=== PATIENT | male | born 1945 | race Caucasian/White ===

== ENCOUNTER → 2016-07-13 | Outpatient (CLI) | payer MEDICARE | LOC: RAD 13:28 | PROVIDERS: ATTEND Internal Medicine Hematology & Oncology | DX: R07.9 Chest pain, unspecified (principal) | CPT/HCPCS: 71250 ==

== ENCOUNTER 2016-07-19 13:00 | Outpatient (CLI) | payer MEDICARE ==
[~2016-07-19 13:00] MED LIST: FERUMOXYTOL (NON-ESRD) 510 MG/NS 100 ML IV PRN; NORMAL SALINE 250 ML IV PRN
[2016-07-19 13:05] VITALS: BP 149/68
== END 2016-07-19 13:44 | disposition home or self-care (01) ==
LOC: II 13:00 → 5TH 13:02 → II 13:44
PROVIDERS: ATTEND Internal Medicine
PROC: 3E033GC Introduction of Other Therapeutic Substance into Peripheral Vein, Percutaneous Approach (ICD-10-PCS; principal; 2016-07-19)
DX: N18.3 Chronic kidney disease, stage 3 (moderate) (principal); D63.1 Anemia in chronic kidney disease
CPT/HCPCS: 96365; Q0138

== ENCOUNTER 2016-07-26 12:31 | Outpatient (CLI) | payer MEDICARE ==
[2016-07-26 13:26] VITALS: BP 110/48
== END 2016-07-26 13:27 | disposition home or self-care (01) ==
LOC: II 12:31 → 5TH 12:31 → II 13:27
PROVIDERS: ATTEND Internal Medicine
PROC: 3E033GC Introduction of Other Therapeutic Substance into Peripheral Vein, Percutaneous Approach (ICD-10-PCS; principal; 2016-07-26)
DX: N18.3 Chronic kidney disease, stage 3 (moderate) (principal); D63.1 Anemia in chronic kidney disease
CPT/HCPCS: 96365; Q0138

== ENCOUNTER → 2016-09-20 | Outpatient (CLI) | payer MEDICARE ==
--- NOTE | 2016-09-20 16:38 | RADIOLOGY REPORT (SQ) ---
EXAM DESCRIPTION: MRI CERVICAL SPINE WITHOUT COMPLETED DATE/TIME: 09/20/2016 2:13 pm REASON FOR STUDY: C SPINE PAIN M54.12 RADICULOPATHY, CERVICAL REGION COMPARISON: MRI from [facility] dated 02/23/2015. TECHNIQUE: Sagittal and Axial imaging includes T1, T2, STIR and gradient echo sequences. LIMITATIONS: None. FINDINGS: ALIGNMENT: Straightening of the cervical curvature. VERTEBRAE: Intact. Fusion of the C5, C 6, and C7 vertebrae. BONE MARROW: Normal. No marrow replacement or reactive changes. DISCS: Decreased height and signal. Disc fusion at C5-C6 and C6-C7. HARDWARE: Anterior hardware from C4-C7. CORD AND BASE OF BRAIN: Normal in size and signal intensity. SOFT TISSUES: No soft tissue masses. C1-C2: No significant spinal stenosis. C2-C3: Uncovertebral spurring and facet arthropathy. Moderate severe bilateral foraminal stenosis. C3-C4: Diffuse posterior disc and osteophyte and uncovertebral spurring. Facet arthropathy. Moderat e to severe spinal stenosis and severe exit foraminal stenosis. C4-C5: Diffuse posterior disc and osteophyte and uncovertebral spurring. Facet arthropathy. Moderat e to severe spinal stenosis and severe exit foraminal stenosis. C5-C6: No significant spinal stenosis or exit foraminal stenosis. C6-C7: No significant spinal stenosis or exit foraminal stenosis. C7-T1: Uncovertebral spurring and facet arthropathy. No significant spinal stenosis. Moderate exit foraminal stenosis. UPPER THORACIC: Incompletely imaged. No significant spinal stenosis or exit foraminal stenosis. OTHER: No other significant finding. IMPRESSION: SURGICAL CHANGES AND DEGENERATIVE CHANGES DESCRIBED ABOVE. SIMILAR TO THE PREVIOUS Joce QURESHI. TECHNICAL DOCUMENTATION: JOB ID: [id number]- All Rights Reserved
== END ==
LOC: RAD 12:20
PROVIDERS: ATTEND Physician Assistant
DX: M54.12 Radiculopathy, cervical region (principal)
CPT/HCPCS: 72141

== ENCOUNTER 2017-04-14 09:59 | Outpatient (CLI) | payer MEDICARE ==
[~2017-04-14 09:59] MED LIST changes: +FERRIC CARBOXYMALTOSE 750 MG in NORMAL SALINE 250 ML IV PRN; -FERUMOXYTOL (NON-ESRD) 510 MG/NS 100 ML IV PRN
== END 2017-04-14 11:29 | disposition home or self-care (01) ==
LOC: II 09:59 → 5TH 10:02 → II 11:29
PROVIDERS: ATTEND Internal Medicine
PROC: 3E033GC Introduction of Other Therapeutic Substance into Peripheral Vein, Percutaneous Approach (ICD-10-PCS; principal; 2017-04-14)
DX: D50.0 Iron deficiency anemia secondary to blood loss (chronic) (principal); N18.3 Chronic kidney disease, stage 3 (moderate)
CPT/HCPCS: 96365; J7050; J1439; 96374

== ENCOUNTER 2017-04-21 12:30 | Outpatient (CLI) | payer MEDICARE | END 2017-04-21 14:05 | disposition home or self-care (01) | LOC: II 12:30 → 5TH 12:36 → II 14:05 | PROVIDERS: ATTEND Internal Medicine | PROC: 3E033GC Introduction of Other Therapeutic Substance into Peripheral Vein, Percutaneous Approach (ICD-10-PCS; principal; 2017-04-21) | DX: D50.0 Iron deficiency anemia secondary to blood loss (chronic) (principal); N18.3 Chronic kidney disease, stage 3 (moderate) | CPT/HCPCS: 96365; J7050; J1439 ==

== ENCOUNTER 2017-10-12 12:16 | Outpatient (CLI) | payer MEDICARE ==
[~2017-10-12 12:16] MED LIST changes: -FERRIC CARBOXYMALTOSE 750 MG in NORMAL SALINE 250 ML IV PRN; +FERUMOXYTOL (NON-ESRD) 510 MG/NS 100 ML IV PRN
[2017-10-12 13:14] VITALS: BP 106/50
== END 2017-10-12 13:27 | disposition home or self-care (01) ==
LOC: II 12:16 → 5TH 12:36 → II 13:27
PROVIDERS: ATTEND Internal Medicine
PROC: 3E033GC Introduction of Other Therapeutic Substance into Peripheral Vein, Percutaneous Approach (ICD-10-PCS; principal; 2017-10-12)
DX: N18.3 Chronic kidney disease, stage 3 (moderate) (principal); D63.1 Anemia in chronic kidney disease
CPT/HCPCS: 96365; Q0138

== ENCOUNTER 2017-10-19 12:17 | Outpatient (CLI) | payer MEDICARE ==
[~2017-10-19 12:17] MED LIST changes: -FERUMOXYTOL (NON-ESRD) 510 MG/NS 100 ML IV PRN; +FERUMOXYTOL 510 MG in NORMAL SALINE 100 ML IV PRN
[2017-10-19 12:51] VITALS: BP 100/50
== END 2017-10-19 13:05 | disposition home or self-care (01) ==
LOC: II 12:17 → 5TH 12:38 → II 13:05
PROVIDERS: ATTEND Internal Medicine
PROC: 3E033GC Introduction of Other Therapeutic Substance into Peripheral Vein, Percutaneous Approach (ICD-10-PCS; principal; 2017-10-19)
DX: N18.3 Chronic kidney disease, stage 3 (moderate) (principal); D63.1 Anemia in chronic kidney disease
CPT/HCPCS: 96365; Q0138

== ENCOUNTER 2018-03-21 13:05 | Outpatient (CLI) | payer MEDICARE, OTHER ==
[2018-03-21] MEDS ORDERED: NORMAL SALINE 250 ML IV PRN (13:32)
[2018-03-21] MEDS ORDERED: FERUMOXYTOL (NON-ESRD) 510 MG/NS 100 ML IV PRN ×2 (13:33)
[2018-03-21 13:50] VITALS: BP 115/48
== END 2018-03-21 14:49 | disposition home or self-care (01) ==
LOC: II 13:05 → 5TH 13:15 → II 14:49
PROVIDERS: ATTEND Internal Medicine
PROC: 3E033GC Introduction of Other Therapeutic Substance into Peripheral Vein, Percutaneous Approach (ICD-10-PCS; principal; 2018-03-21)
DX: D50.0 Iron deficiency anemia secondary to blood loss (chronic) (principal)
CPT/HCPCS: 96367; Q0138; 96365

== ENCOUNTER 2018-03-28 12:32 | Outpatient (CLI) | payer MEDICARE, OTHER ==
[~2018-03-28 12:32] MED LIST changes: +FERUMOXYTOL (NON-ESRD) 510 MG/NS 100 ML IV PRN; -FERUMOXYTOL 510 MG in NORMAL SALINE 100 ML IV PRN
[2018-03-28 13:20] VITALS: BP 99/45
== END 2018-03-28 14:04 | disposition home or self-care (01) ==
LOC: II 12:32 → 5TH 12:32 → II 14:04
PROVIDERS: ATTEND Internal Medicine
PROC: 3E033GC Introduction of Other Therapeutic Substance into Peripheral Vein, Percutaneous Approach (ICD-10-PCS; principal; 2018-03-28)
DX: D50.0 Iron deficiency anemia secondary to blood loss (chronic) (principal); N18.3 Chronic kidney disease, stage 3 (moderate)
CPT/HCPCS: 96367; Q0138; 96365

== ENCOUNTER 2018-09-04 07:16 | Day surgery (SDC) | payer MEDICARE, OTHER ==
[~2018-09-04 07:16] MED LIST changes: -FERUMOXYTOL (NON-ESRD) 510 MG/NS 100 ML IV PRN; +KETOROLAC TROMETHAMINE 0.45% 4 DROP/0.4 ML DROPERETTE OS PRN; -NORMAL SALINE 250 ML IV PRN
[2018-09-04] MEDS ORDERED: ONDANSETRON HCL INJ/PF 4 MG/2 ML SDV ONE (07:20)
[2018-09-04] MEDS ORDERED: MIDAZOLAM 2 MG/2 ML INJ ONE (07:20)
[2018-09-04] MEDS ORDERED: FENTANYL CITRATE INJ/PF 100 MCG/2 ML AMPUL ONE (07:20)
[2018-09-04] MEDS ORDERED: LIDOCAINE 1% INJ-PF (10 MG/ML) 30 ML SDV ONE (07:41)
[2018-09-04] MEDS: BESIFLOXACIN HCL 0.6% OPH SUSP 5 ML BOTTLE OS PRN ×4 (08:10→09:08)
[2018-09-04] MEDS: TROPICAMIDE 1% OPH SOLN 3 ML OS PRN ×3 (08:10→08:30)
[2018-09-04] MEDS: CYCLOPENTOLATE 0.2%/PHENYLEPHRINE 1% OPH SOLN 2 ML OS PRN ×3 (08:10→08:30)
[2018-09-04] MEDS: TETRACAINE HCL 0.5% OPH SOLN 0.6 ML DROPERETTE OS PRN ×4 (08:11→08:39)
[2018-09-04] MEDS: LIDOCAINE 4% INJ/PF (40 MG/ML) 5 ML AMPUL OS PRN ×2 (08:41)
[2018-09-04] MEDS: BUPIVACAINE HCL 0.75% INJ/PF (7.5 MG/1 ML) 10 ML SDV OS PRN ×2 (08:41)
[2018-09-04] MEDS: EPINEPHRINE INJ/PF 1 MG/1 ML AMPULE ONE ×2 (08:53)
[2018-09-04] MEDS: CHONDR SU A NA/HYALUR INTRAOC KIT (SURGICARE) ONE ×2 (08:53)
[2018-09-04] MEDS ORDERED: LIDOCAINE 1%/PHENYLEPHRINE 1.5% 1 ML VIAL ONE (08:57)
[2018-09-04] MEDS: DORZOLAMIDE HCL 2%/TIMOLOL MALEAT 0.5% OPH SOLN 10 ML OS PRN ×2 (09:08)
--- NOTE | 2018-09-04 09:50 | [facility] DISCHARGE SUMMARY E ---
[facility] Discharge Summary NAME: HAYLEE JERNIGAN AGE: 73Y ADMITTED: 09/04/2018 DISCHARGED: 09/04/2018 FINAL DIAGNOSIS: CATARACT, LEFT EYE HOSPITAL COURSE: The patient is a 73-year-old gentleman who underwent uneventful cataract extraction with intraocular lens implant, left eye on 09/04/18. He will be discharged to home. He is instructed to resume preoperative medications, take Tylenol as needed for discomfort, to keep his eye shielded, to use Besivance, Durezol and Ilevro at 3 p.m. and 8 p.m., and to follow up in my office in 1 day. DICTATING PHYSICIAN: AKILAH CAMERON M.D. [id number] Y#: [id number] ID: [id number] JOB#: [id number] ACCT: [id number] cc:AKILAH CAMERON M.D. >
--- NOTE | 2018-09-04 09:50 | [facility] OPERATIVE REPORT E ---
[facility] Operative Report NAME: HAYLEE JERNIGAN AGE: 73Y DATE OF SURGERY: 09/04/2018 ROOM: PREOPERATIVE DIAGNOSIS: CATARACT, LEFT EYE. POSTOPERATIVE DIAGNOSIS: CATARACT, LEFT EYE. PROCEDURE PERFORMED: PHACOEMULSIFICATION WITH POSTERIOR CHAMBER INTRAOCULAR LENS, LEFT EYE. SURGEON: AKILAH CAMERON MD ANESTHESIA: TOPICAL WITH MAC PLUS INTRAOCULAR PHENYLEPHRINE AND LIDOCAINE. PROCEDURE: The patient was brought to the Operating Room and placed on the operative table. Following tetracaine drops, topical anesthesia was administered. This consisted of instrument wipe pledgets soaked in a solution of 4% Xylocaine mixed with 0.75% Marcaine in a 1:2 ratio. A 2 x 1 cm pledget was placed in the superior fornix. A 1 x 1 cm pledget was placed in the inferior fornix. The eye was patched shut for 5 minutes. The patch was removed. The eye was sterilely prepped and draped in the usual manner. Lid speculum was placed in the eye. The pledgets were removed. 4-0 black silk sutures were placed around the superior and the inferior rectus muscles to be used as traction. A conjunctival peritomy was made at the 2 o'clock position. Hemostasis was obtained with bipolar cautery. A posterior limbal groove was created using a crescent knife and dissected anteriorly towards the cornea. A sharp point blade was used to create a paracentesis site at the 5 o'clock position. A 2.4 mm keratome was used to enter the anterior chamber through the groove. Viscoelastic was injected into the anterior chamber. An anterior capsulotomy was performed using Utrata forceps in a capsulorrhexis fashion. Hydrodissection and hydrodelineation were performed. Phacoemulsification was performed in abgrgs-zmc-[id number] technique. A total of 4.96 CDE phaco time was used. Following this, the I/A unit was used to remove residual cortex. Viscoelastic was injected into the capsular bag. Intraocular lens model [id number], 22.5 diopters, serial number [id number] was placed in the capsular bag. The I/A unit was used to remove residual viscoelastic. The wound was seen to be watertight under high and low pressure, and no sutures were placed. The intraocular lens was well centered. The pressure was adjusted in the eye to normal pressure. The 4-0 black silk sutures and lid speculum were removed. The eye was shielded after Besivance drops were placed. The patient tolerated the procedure well and was sent to the Recovery Room in good condition. A drop of Cosopt was placed in the eye at the end of surgery. DICTATING PHYSICIAN: AKILAH CAMERON M.D. DICTATING PHYSICIAN: AKILAH CAMERON M.D. [id number] PHY#: [id number] ID: [id number] JOB#: [id number] ACCT: [id number] cc:AKILAH CAMERON M.D. >
== END 2018-09-04 09:50 | disposition home or self-care (01) ==
LOC: SC 07:16
PROVIDERS: ATTEND Ophthalmology
DX: H25.12 Age-related nuclear cataract, left eye (principal); Z96.1 Presence of intraocular lens; I10 Essential (primary) hypertension; E11.9 Type 2 diabetes mellitus without complications; D64.9 Anemia, unspecified; I49.9 Cardiac arrhythmia, unspecified
CPT/HCPCS: 66984; V2632; J2250; J3490 ×4; A9270; J0171; J2405; J2370; J3010

== ENCOUNTER → 2018-09-12 | Outpatient (CLI) | payer MEDICARE, OTHER ==
--- NOTE | 2018-09-12 15:59 | XCELERA REPORT ---
[address] [place] [facility] [place] [address] Lower Extremity Venous Evaluation Procedure: Color flow and duplex imaging of the veins of the right lower extremity as well as the left Common Femoral vein. Right Sided Venous Evaluation Normal vessel filling wall to wall, compression and augmentation as well as Colour flow down to the infrageniculate veins. Left Sided Venous Evaluation The left common femoral vein is fully compressible. Spontaneous and phasic flow is present in the left common femoral vein. Interpretation Summary No duplex evidence of DVT or obstruction in the right lower extremity nor in the left Common Femoral vein. Name: HAYLEE JERNIGAN Age: 73 yrs Gender: Male : 1945 Patient Status: Outpatient Patient Location: Study Date: 09/12/2018 02:10 PM Reason For Study: RLE EDEMA Ordering Physician: DAMON RAMÍREZ Performed By: Jorge Cadet : DAMON RAMÍREZ > Matthew Lewis
== END ==
LOC: SP 13:14
PROVIDERS: ATTEND Registered Nurse
DX: R60.9 Edema, unspecified (principal)
CPT/HCPCS: 93971

== ENCOUNTER 2018-11-14 12:16 | Outpatient (CLI) | payer MEDICARE, OTHER ==
[2018-11-14] MEDS ORDERED: FERUMOXYTOL 510 MG in NORMAL SALINE 100 ML IV PRN (12:23)
[2018-11-14] MEDS ORDERED: NORMAL SALINE 250 ML IV PRN (12:30)
[2018-11-14 12:33] VITALS: BP 110/57
== END 2018-11-14 13:31 | disposition home or self-care (01) ==
LOC: II 12:16 → 5TH 12:20 → II 13:31
PROVIDERS: ATTEND Internal Medicine
PROC: 3E033GC Introduction of Other Therapeutic Substance into Peripheral Vein, Percutaneous Approach (ICD-10-PCS; principal; 2018-11-14)
DX: D50.0 Iron deficiency anemia secondary to blood loss (chronic) (principal); N18.3 Chronic kidney disease, stage 3 (moderate)
CPT/HCPCS: 96365; Q0138; J7050

== ENCOUNTER 2018-11-21 12:16 | Outpatient (CLI) | payer MEDICARE, OTHER ==
[~2018-11-21 12:16] MED LIST changes: +FERUMOXYTOL (NON-ESRD) 510 MG/NS 100 ML IV PRN; -KETOROLAC TROMETHAMINE 0.45% 4 DROP/0.4 ML DROPERETTE OS PRN; +NORMAL SALINE 250 ML IV PRN
[2018-11-21 12:58] VITALS: BP 120/71
== END 2018-11-21 13:35 | disposition home or self-care (01) ==
LOC: II 12:16 → 5TH 13:00 → II 13:35
PROVIDERS: ATTEND Internal Medicine
PROC: 3E033GC Introduction of Other Therapeutic Substance into Peripheral Vein, Percutaneous Approach (ICD-10-PCS; principal; 2018-11-21)
DX: D50.0 Iron deficiency anemia secondary to blood loss (chronic) (principal); N18.3 Chronic kidney disease, stage 3 (moderate)
CPT/HCPCS: 96365; Q0138; J7050

== ENCOUNTER → 2019-02-06 | Outpatient (CLI) | payer MEDICARE, OTHER ==
[2019-02-06 10:50] LABS: ABSOLUTE EOSINOPHILS # (AUTO) 0.1 10^3/uL (0.0-0.6); ABSOLUTE LYMPHOCYTES (AUTO) 0.9 10^3/uL (0.5-4.7); ABSOLUTE MONOCYTES (AUTO) 0.3 10^3/uL (0.1-1.4); ABSOLUTE NEUT (AUTO) 3.1 10^3/uL (1.7-8.2); BASOPHILS % (AUTO) 0.8 % (0-2); EOSINOPHILS % (AUTO) 1.4 % (0-6); HEMATOCRIT 36.1 % (37.9-51.0); HEMOGLOBIN 11.6 g/dL (13.5-17.0); LYMPHOCYTES % (AUTO) 19.8 % (13-45); MEAN CORPUSCULAR HEMOGLOBIN 25.9 pg (27.0-33.4); MEAN CORPUSCULAR VOLUME 81 fl (80-97); MONOCYTES % (AUTO) 7.8 % (3-13); PLATELET COUNT 102 10^3/uL (150-450); RED BLOOD COUNT 4.45 10^6/uL (4.35-5.55); RED CELL DISTRIBUTION WIDTH 18.9 % (11.5-14.0); SEGMENTED NEUTROPHILS % (AUTO) 70.2 % (42-78); TOTAL CELLS COUNTED % (AUTO) 100 %; WHITE BLOOD COUNT 4.4 10^3/uL (4.0-10.5)
[2019-02-06 11:09] LABS: ANION GAP 13 (5-19); BLOOD UREA NITROGEN 27 mg/dL (7-20); CALCIUM 9.3 mg/dL (8.4-10.2); CARBON DIOXIDE 25 mmol/L (22-30); CHLORIDE 103 mmol/L (98-107); GLUCOSE 125 mg/dL (75-110)
== END ==
LOC: OD 09:39
PROVIDERS: ATTEND Internal Medicine Nephrology
DX: I12.9 Hypertensive chronic kidney disease with stage 1 through stage 4 chronic kidney disease, or unspecified chronic kidney disease (principal); N18.3 Chronic kidney disease, stage 3 (moderate); D63.1 Anemia in chronic kidney disease; R60.9 Edema, unspecified
CPT/HCPCS: 36415; 80048; 83735; 85025

== ENCOUNTER 2019-02-07 12:29 | Outpatient (CLI) | payer MEDICARE ==
[2019-02-07 12:51] VITALS: BP 130/64
[2019-02-07] MEDS ORDERED: FERUMOXYTOL (NON-ESRD) 510 MG/NS 100 ML IV ONE ×2 (13:30)
== END 2019-02-07 13:43 | disposition home or self-care (01) ==
LOC: II 12:29 → 5TH 12:40 → II 13:43
PROVIDERS: ATTEND Pediatrics
DX: D50.0 Iron deficiency anemia secondary to blood loss (chronic) (principal); N18.3 Chronic kidney disease, stage 3 (moderate)
CPT/HCPCS: 96365; Q0138; J7050

== ENCOUNTER 2019-02-14 12:48 | Outpatient (CLI) | payer MEDICARE, OTHER ==
[~2019-02-14 12:48] MED LIST changes: +FERUMOXYTOL (ESRD) 510 MG/NS 100 ML IV PRN
[2019-02-14 13:16] VITALS: BP 133/66
== END 2019-02-14 13:49 | disposition home or self-care (01) ==
LOC: II 12:48 → 5TH 13:41 → II 13:49
PROVIDERS: ATTEND Pediatrics
DX: D50.0 Iron deficiency anemia secondary to blood loss (chronic) (principal); N18.3 Chronic kidney disease, stage 3 (moderate)
CPT/HCPCS: 96365; Q0138; J7050; 76642; Q0139

== ENCOUNTER → 2019-02-14 | Outpatient (CLI) | payer MEDICARE, OTHER ==
--- NOTE | 2019-02-14 18:12 | WOMENS IMAGING REPORT ---
EXAM DESCRIPTION: U/S BREAST UNILAT LIMITED COMPLETED DATE/TIME: 02/14/2019 11:33 am REASON FOR STUDY: RT BREAST N63.0; LT BREAST N63.0 N63.0 UNSPECIFIED LUMP IN UNSPECIFIED BREAST COMPARISON: None. TECHNIQUE: Real-time and static grayscale imaging performed of the right and left breast targeted to the area of clinical concern. Selected color Doppler images recorded. LIMITATIONS: None. FINDINGS: MASS: No mass identified. Normal glandular tissue. OTHER: There is benign appearing bilateral retroareolar gynecomastia. IMPRESSION: Bilateral gynecomastia BIRAD: 2 Benign findings. RECOMMENDATION: RECOMMENDED FOLLOW-UP: Clinical followup for bilateral gynecomastia COMMENT: The [employer] (ACR) has developed recommendations for screening MRI of the breasts in certain patient populations, to be used in conjunction with mammography. Breast MRI s urveillance may be appropriate for women with more than 20% lifetime risk of developing breast cancer as determined by genetic testing, significant family history of the disease, or history of mantle r adiation for Hodgkins Disease. ACR Practice Guidelines 2008. TECHNICAL DOCUMENTATION: JOB ID: [id number] [employer]- All Rights Reserved Reading location - IP/workstation name: [email or web address]
--- NOTE | 2019-02-14 18:12 | WOMENS IMAGING REPORT ---
EXAM DESCRIPTION: U/S BREAST UNILAT LIMITED COMPLETED DATE/TIME: 02/14/2019 11:33 am REASON FOR STUDY: RT BREAST N63.0; LT BREAST N63.0 N63.0 UNSPECIFIED LUMP IN UNSPECIFIED BREAST COMPARISON: None. TECHNIQUE: Real-time and static grayscale imaging performed of the right and left breast targeted to the area of clinical concern. Selected color Doppler images recorded. LIMITATIONS: None. FINDINGS: MASS: No mass identified. Normal glandular tissue. OTHER: There is benign appearing bilateral retroareolar gynecomastia. IMPRESSION: Bilateral gynecomastia BIRAD: 2 Benign findings. RECOMMENDATION: RECOMMENDED FOLLOW-UP: Clinical followup for bilateral gynecomastia COMMENT: The [employer] (ACR) has developed recommendations for screening MRI of the breasts in certain patient populations, to be used in conjunction with mammography. Breast MRI s urveillance may be appropriate for women with more than 20% lifetime risk of developing breast cancer as determined by genetic testing, significant family history of the disease, or history of mantle r adiation for Hodgkins Disease. ACR Practice Guidelines 2008. TECHNICAL DOCUMENTATION: JOB ID: [id number] [employer]- All Rights Reserved Reading location - IP/workstation name: [email or web address]
== END ==
LOC: WI 10:19
PROVIDERS: ATTEND Physician Assistant Medical
DX: N62 Hypertrophy of breast (principal)
CPT/HCPCS: 76642

== ENCOUNTER 2019-10-12 13:14 | Emergency (ER) | payer MEDICARE, OTHER ==
--- NOTE | 2019-10-12 13:42 | ER Document Report ---
ED General - General Chief Complaint: Difficulty Swallowing Stated Complaint: DIFFICULTY SWALLOWING Time Seen by Provider: 10/12/19 13:34 Primary Care Provider: RENATE DEL REAL MD [Primary Care Provider] - Follow up in 3-5 days Notes: 74-year-old male who apparently has a long history of dysphagia odynophagia and is on a soft/liquid diet in general presents with swallowing difficulties. He tells me that this morning he woke up and could not swallow his water pudding and this is never happened before. EMS says he had a lifetime issue since the 60s of dysphagia and eats only a liquid diet at baseline. He has a history of a gastric surgery for ulcer disease and has had some malnourishment in the past from what I can tell. He denies unilateral muscle weakness or tingling. TRAVEL OUTSIDE OF THE [place] IN LAST 30 DAYS: No - Related Data Allergies/Adverse Reactions: aspirin [Aspirin] Allergy (Mild, Verified 10/12/19 15:29) BLEEDING ULCERS meperidine HCl [From Demerol] Allergy (Unknown, Verified 10/12/19 15:29) NSAIDS (Non-Steroidal Anti-Inflamma [Nsaids] Allergy (Unknown, Verified 10/12/19 15:29) ULCERS IN STOMACH pentazocine lactate [From Talwin] Allergy (Unknown, Verified 10/12/19 15:29) promethazine HCl [From Phenergan] Allergy (Unknown, Verified 10/12/19 15:29) Past Medical History - General Information source: Patient - Social History Smoking Status: Former Smoker Family History: None - Past Medical History Cardiac Medical History: Reports: Hx Atrial Fibrillation, Hx Hypertension Denies: Hx Coronary Artery Disease, Hx Heart Attack Pulmonary Medical History: Reports: Hx Pneumonia - ASPIRATION PNEUMONIA Denies: Hx Asthma, Hx Bronchitis, Hx COPD, Hx Tuberculosis Neurological Medical History: Denies: Hx Cerebrovascular Accident, Hx Seizures Renal/ Medical History: Reports: Hx Benign Prostatic Hyperplasia, Hx Kidney Stones GI Medical History: Reports: Hx Gastroesophageal Reflux Disease, Hx Irritable Bowel, Hx Ulcer. Denies: Hx Hepatitis, Hx Hiatal Hernia Musculoskeletal Medical History: Reports Hx Arthritis Psychiatric Medical History: Reports: Hx Depression Traumatic Medical History: Reports: Hx Fractures Infectious Medical History: Denies: Hx Hepatitis Past Surgical History: Reports: Hx Orthopedic Surgery - neck surgery. Denies: Hx Open Heart Surgery, Hx Pacemaker - Immunizations Hx Diphtheria, Pertussis, Tetanus Vaccination: Yes Review of Systems - Review of Systems Notes: REVIEW OF SYSTEMS GEN: Generalized weakness weight loss ENT: Dysphagia. Denies sore throat, nasal discharge, ear pain EYES: Denies blurry vision, eye pain, discharge CV: Denies chest pain, palpitations, edema RESP: Denies cough, shortness of breath, wheezing GI: Denies abdominal pain, nausea, vomiting, diarrhea MSK: Denies joint pain/swelling, edema, SKIN: Denies rash, skin lesions LYMPH: Denies swollen glands/lymph nodes NEURO: Denies headache, focal weakness or numbness, dizziness PSYCH: Denies depression, suicidal or homicidal ideation PHYSICAL EXAMINATION General: Thin and wasted chronically ill-appearing Head: Atraumatic, normocephalic ENT: Mouth normal, oropharynx moist, no exudates or tonsillar enlargement Eyes: Conjunctiva normal, pupils equal, lids normal Neck: No JVD, supple, no guarding CVS: Normal rate, regular rhythm, no murmurs Resp: No resp distress, equal and normal breath sounds bilaterally GI: Nondistended, soft, no tenderness to palpation, no rebound or guarding Ext: No deformities, no edema, normal range of motion in upper and lower ext Back: No CVA or midline TTP Skin: No rash, warm Lymphatic: No lymphadeopathy noted Neuro: Awake, alert. Face symmetric. GCS 15. Tongue midline speech fluent memory slightly impaired. Physical Exam - Vital signs Vitals: Temp Pulse Resp BP Pulse Ox 97.9 F 48 L 19 96/62 L 97 10/12/19 13:14 10/12/19 13:14 10/12/19 13:14 10/12/19 13:14 10/12/19 13:14 Course - Re-evaluation Re-evalutation: 10/12/19 15:35 Patient presents patient resents with aphasia. He looks thin and like he is lost weight on record and on review of his history from EMS he is actually had dysphagia for years. He actually despite saying he ate pudding for breakfast had do and eggs. He looks well-hydrated has mild hyponatremia on labs otherwise looks okay and is able to tolerate solid food in the emergency department. Doubt stroke doubt cancer, does have a chronic dysphagia issue but not sufficient to be admitted including with electrolyte issues and he can be discharged home with follow-up. I have discussed with the patient there likely diagnosis, aftercare plan, follow-up plans and my usual and customary return precautions. They verbalized understanding of this. - Vital Signs Vital signs: Temp Pulse Resp BP Pulse Ox 97.5 F 64 16 96/62 L 97 10/12/19 16:14 10/12/19 16:14 10/12/19 16:14 10/12/19 13:18 10/12/19 16:14 - Laboratory Result Diagrams: 10/12/19 13:52 10/12/19 13:52 Laboratory results interpreted by me: 10/12/19 10/12/19 13:52 13:52 RBC 3.99 L Hgb 12.1 L Hct 36.4 L Plt Count 125 L Lymph % (Auto) 11.1 L Seg Neutrophils % 78.1 H Sodium 129.9 L Chloride 91 L Carbon Dioxide 34 H BUN 23 H Total Protein 6.0 L Albumin 3.1 L - Diagnostic Test Radiology reviewed: Image reviewed, Reports reviewed Discharge - Discharge Clinical Impression: Dehydration Dysphagia Qualifiers: Dysphagia type: unspecified Qualified Code(s): R13.10 - Dysphagia, unspecified Condition: Good Disposition: HOME, SELF-CARE Referrals: RENATE DEL REAL MD [Primary Care Provider] - Follow up in 3-5 days
[2019-10-12 14:08] LABS: ABSOLUTE BASOPHILS # (AUTO) 0.1 10^3/uL (0.0-0.2); ABSOLUTE LYMPHOCYTES (AUTO) 0.7 10^3/uL (0.5-4.7); ABSOLUTE MONOCYTES (AUTO) 0.6 10^3/uL (0.1-1.4); BASOPHILS % (AUTO) 0.8 % (0-2); EOSINOPHILS % (AUTO) 0.4 % (0-6); HEMATOCRIT 36.4 % (37.9-51.0); HEMOGLOBIN 12.1 g/dL (13.5-17.0); LYMPHOCYTES % (AUTO) 11.1 % (13-45); MEAN CORPUSCULAR HEMOGLOBIN 30.4 pg (27.0-33.4); MEAN CORPUSCULAR HGB CONC 33.4 g/dL (32.0-36.0); MEAN CORPUSCULAR VOLUME 91 fl (80-97); MONOCYTES % (AUTO) 9.6 % (3-13); PLATELET COUNT 125 10^3/uL (150-450); RED BLOOD COUNT 3.99 10^6/uL (4.35-5.55); RED CELL DISTRIBUTION WIDTH 13.2 % (11.5-14.0); SEGMENTED NEUTROPHILS % (AUTO) 78.1 % (42-78); TOTAL CELLS COUNTED % (AUTO) 100 %; WHITE BLOOD COUNT 6.5 10^3/uL (4.0-10.5)
[2019-10-12 14:28] LABS: ALBUMIN 3.1 g/dL (3.5-5.0); ALKALINE PHOSPHATASE 64 U/L (38-126); ASPARTATE AMINO TRANSFERASE 20 U/L (17-59); BILIRUBIN,TOTAL 0.9 mg/dL (0.2-1.3); BLOOD UREA NITROGEN 23 mg/dL (7-20); CALCIUM 8.4 mg/dL (8.4-10.2); CHLORIDE 91 mmol/L (98-107); GLUCOSE 99 mg/dL (75-110); POTASSIUM 4.9 mmol/L (3.6-5.0)
[2019-10-12 14:37] LABS: CARBON DIOXIDE 34 mmol/L (22-30)
[2019-10-12 14:48] LABS: ANION GAP 5 (5-19)
--- NOTE | 2019-10-12 15:20 | RADIOLOGY REPORT (SQ) ---
EXAM DESCRIPTION: CHEST SINGLE VIEW IMAGES COMPLETED DATE/TIME: 10/12/2019 2:31 pm REASON FOR STUDY: dysphagia COMPARISON: 07/13/2016 EXAM PARAMETERS: NUMBER OF VIEWS: One view. TECHNIQUE: Single frontal radiographic view of the chest acquired. RADIATION DOSE: NA LIMITATIONS: None. FINDINGS: LUNGS AND PLEURA: No opacities, masses or pneumothorax. No pleural effusion. MEDIASTINUM AND HILAR STRUCTURES: No masses. Contour normal. HEART AND VASCULAR STRUCTURES: Heart normal in size. Normal vasculature. BONES: No acute findings. HARDWARE: None in the chest. OTHER: No other significant finding. IMPRESSION: NO ACUTE RADIOGRAPHIC FINDING IN THE CHEST. TECHNICAL DOCUMENTATION: JOB ID: [id number] [employer]- All Rights Reserved Reading location - IP/workstation name: [email or web address]
[2019-10-12 15:34] VITALS: BP 96/62
== END 2019-10-12 16:23 | disposition home or self-care (01) ==
LOC: ER 13:14
DX: E86.0 Dehydration (principal); R13.10 Dysphagia, unspecified; R47.01 Aphasia; Z88.8 Allergy status to other drugs, medicaments and biological substances; I10 Essential (primary) hypertension
CPT/HCPCS: 36415; 71045; 80053; 85025; 99284

== ENCOUNTER 2019-10-14 13:27 | Inpatient (IN) | payer MEDICARE ==
[2019-10-14 14:24] LABS: ABSOLUTE LYMPHOCYTES (AUTO) 0.9 10^3/uL (0.5-4.7); ABSOLUTE MONOCYTES (AUTO) 0.6 10^3/uL (0.1-1.4); ABSOLUTE NEUT (AUTO) 5.5 10^3/uL (1.7-8.2); BASOPHILS % (AUTO) 0.4 % (0-2); EOSINOPHILS % (AUTO) 0.2 % (0-6); HEMATOCRIT 32.8 % (37.9-51.0); LYMPHOCYTES % (AUTO) 12.5 % (13-45); MEAN CORPUSCULAR HEMOGLOBIN 30.2 pg (27.0-33.4); MEAN CORPUSCULAR HGB CONC 33.4 g/dL (32.0-36.0); MEAN CORPUSCULAR VOLUME 90 fl (80-97); PLATELET COUNT 105 10^3/uL (150-450); RED BLOOD COUNT 3.63 10^6/uL (4.35-5.55); SEGMENTED NEUTROPHILS % (AUTO) 77.9 % (42-78); TOTAL CELLS COUNTED % (AUTO) 100 %; WHITE BLOOD COUNT 7.1 10^3/uL (4.0-10.5)
[2019-10-14 14:38] LABS: ALBUMIN 2.5 g/dL (3.5-5.0); ALKALINE PHOSPHATASE 60 U/L (38-126); ANION GAP 6 (5-19); ASPARTATE AMINO TRANSFERASE 17 U/L (17-59); BILIRUBIN,TOTAL 0.6 mg/dL (0.2-1.3); BLOOD UREA NITROGEN 22 mg/dL (7-20); CALCIUM 7.9 mg/dL (8.4-10.2); CARBON DIOXIDE 30 mmol/L (22-30); CHLORIDE 93 mmol/L (98-107); GLUCOSE 86 mg/dL (75-110); POTASSIUM 4.5 mmol/L (3.6-5.0); TOTAL PROTEIN 5.2 g/dL (6.3-8.2)
--- NOTE | 2019-10-14 14:43 | ER Document Report ---
Entered by GARRICK ALEXIS SCRIBE 10/14/19 1409 Acting as scribe for:WILBER SIMMONS MD ED General - General Stated Complaint: BLOOD PRESSURE ISSUES Time Seen by Provider: 10/14/19 13:37 Primary Care Provider: RENATE DEL REAL MD [Primary Care Provider] - Follow up as needed Notes: This 74-year-old male patient comes emergency room with swallowing difficulty. He reports his swallowing difficulties have gotten worse in the last several months. He states sometimes he can swallow food and liquids, other times they have just come back up. He states he is able to take his pain medication but he needs something like lemon [place] Gatorade to be able to get the pain medicine down. He was seen here yesterday for similar complaint and discharged home without any clear follow-up plan. According to the patient he has never had a swallow study done to evaluate his swallowing or esophageal motility. The patient does have a bandaged area on his back which he states is from a wound he sustained in a fall 2 weeks ago just over 2 weeks ago. TRAVEL OUTSIDE OF THE [place] IN LAST 30 DAYS: No - Related Data Allergies/Adverse Reactions: aspirin [Aspirin] Allergy (Mild, Verified 10/12/19 15:29) BLEEDING ULCERS meperidine HCl [From Demerol] Allergy (Unknown, Verified 10/12/19 15:29) NSAIDS (Non-Steroidal Anti-Inflamma [Nsaids] Allergy (Unknown, Verified 10/12/19 15:29) ULCERS IN STOMACH pentazocine lactate [From Talwin] Allergy (Unknown, Verified 10/12/19 15:29) promethazine HCl [From Phenergan] Allergy (Unknown, Verified 10/12/19 15:29) Past Medical History - General Information source: Patient, [facility] Records - Social History Smoking Status: Former Smoker Cigarette use (# per day): No Frequency of alcohol use: None Drug Abuse: None Lives with: Family Family History: Reviewed & Not Pertinent - Past Medical History Cardiac Medical History: Reports: Hx Atrial Fibrillation, Hx Hypertension Pulmonary Medical History: Reports: Hx Pneumonia - ASPIRATION PNEUMONIA Renal/ Medical History: Reports: Hx Benign Prostatic Hyperplasia, Hx Kidney Stones GI Medical History: Reports: Hx Gastroesophageal Reflux Disease, Hx Irritable Bowel, Hx Ulcer Musculoskeletal Medical History: Reports Hx Arthritis Psychiatric Medical History: Reports: Hx Depression Traumatic Medical History: Reports: Hx Fractures Past Surgical History: Reports: Hx Orthopedic Surgery - neck surgery - Immunizations Hx Diphtheria, Pertussis, Tetanus Vaccination: Yes Review of Systems - Review of Systems Constitutional: No symptoms reported EENT: See HPI, Other - dysphagia Cardiovascular: No symptoms reported Respiratory: No symptoms reported Gastrointestinal: No symptoms reported Genitourinary: No symptoms reported Male Genitourinary: No symptoms reported Musculoskeletal: No symptoms reported Skin: See HPI, Lesions Hematologic/Lymphatic: No symptoms reported Neurological/Psychological: No symptoms reported -: Yes All other systems reviewed and negative Physical Exam - Vital signs Vitals: Temp 98.1 F 10/14/19 13:27 - Notes Notes: Physical Exam: General: Alert, appears cachectic. HEENT: Normocephalic. Atraumatic. PERRL. Extraocular movements intact. Oropharynx clear. Neck: Supple. Non-tender. Respiratory: No respiratory distress. Clear and equal breath sounds bilaterally. Cardiovascular: Regular rate and rhythm. Abdominal: Normal Inspection. Non-tender. No distension. Normal Bowel Sounds. Back: The spinous processes are quite prominent. There is a wound at the level of T6 just to the left of the midline which appears to be a pressure ulcer when packing and bandage removed. There are some areas that appear to be approaching stage III. Extremities: Moves all four extremities. Upper extremities: Normal inspection. Normal ROM. Lower extremities: Bilateral edema right > left, RLE has dried scab. Normal ROM. Neurological: Normal cognition. AAOx4. Normal speech. Psychological: Normal affect. Normal Mood. Skin: See Lower Extremity Exam Course - Vital Signs Vital signs: Temp Pulse Resp BP Pulse Ox 98.1 F 12 103/64 98 10/14/19 14:01 10/14/19 14:01 10/14/19 14:00 10/14/19 14:01 - Laboratory Result Diagrams: 10/14/19 13:55 10/14/19 13:55 Laboratory results interpreted by me: 10/14/19 10/14/19 10/14/19 13:55 13:55 13:55 RBC 3.63 L Hgb 11.0 L Hct 32.8 L Plt Count 105 L Lymph % (Auto) 12.5 L Sodium 128.9 L Chloride 93 L BUN 22 H Calcium 7.9 L Creatine Kinase 26 L Total Protein 5.2 L Albumin 2.5 L - Diagnostic Test Radiology reviewed: Image reviewed - Patient had a normal chest x-ray yesterday. - EKG Interpretation by Me EKG shows normal: [place], Intervals, QRS Complexes, ST-T Waves Rate: Normal - 75 Rhythm: A.Fib, PVC's Voltage: Decreased voltage - Consults Dr. Guerra Time consulted: 17:32 Consulted provider: will come to ER Discharge - Discharge Clinical Impression: Hyponatremia, Chronic iron deficiency anemia, Chronic atrial fibrillation Dysphagia Qualifiers: Dysphagia type: unspecified Qualified Code(s): R13.10 - Dysphagia, unspecified Hypotension Qualifiers: Hypotension type: unspecified hypotension type Qualified Code(s): I95.9 - Hypotension, unspecified Condition: Stable Disposition: ADMITTED INPATIENT Admitting Provider: Charlie (Hospitalist) Unit Admitted: IMCU Referrals: RENATE DEL REAL MD [Primary Care Provider] - Follow up as needed I personally performed the services described in the documentation, reviewed and edited the documentation which was dictated to the scribe in my presence, and it accurately records my words and actions.
[2019-10-14] MEDS ORDERED: OXYCODONE-ACETAMINOPHEN 5-325 MG TABLET PO ONE (16:52)
[2019-10-14] MEDS ORDERED: ONDANSETRON HCL INJ/PF 4 MG/2 ML SDV IV PRN (18:09)
[2019-10-14] MEDS ORDERED: GLUCAGON,HUMAN RECOMB 1 MG INJ SUBCUT PRN (18:17)
[2019-10-14] MEDS ORDERED: DEXTROSE 50%-WATER 25 GM/50 ML DISP.SYRIN IV PRN ×2 (18:17)
[2019-10-14] MEDS ORDERED: DEXTROSE 40% GEL 15 GM TUBE PO PRN ×2 (18:17)
--- NOTE | 2019-10-14 18:35 | PDOC H&P ---
History of Present Illness Admission Date/PCP: 10/14/19 17:48 RENATE DEL REAL MD Patient complains of: came with c/o fall 2 weeks ago and difficulty in swallowing which is chronic History of Present Illness: HAYLEE JERNIGAN is a 74 year old male with history of atrial fibrillation on digoxin, hypertension, history of aspiration pneumonia, BPH, kidney stones, g astric with reflux disease, irritable bowel disease, gastric ulcer, arthritis, depression, history of neck surgery came to the emergency room with history of fall 2 weeks ago as per the patient he fell and busted his back.. Patient is also given the history of difficulty swallowing on and off for the last several months and losing weight. Denies any problems with aspiration. Past Medical History Cardiac Medical History: Reports: Atrial Fibrillation, Hypertension Denies: Coronary Artery Disease, Myocardial Infarction Pulmonary Medical History: Reports: Pneumonia - ASPIRATION PNEUMONIA Denies: Asthma, Bronchitis, Chronic Obstructive Pulmonary Disease (COPD), Tuberculosis Neurological Medical History: Denies: Seizures GI Medical History: Reports: Gastroesophageal Reflux Disease Denies: Hepatitis, Hiatal Hernia Musculoskeltal Medical History: Reports: Arthritis Psychiatric Medical History: Reports: Depression Hematology: Reports: Anemia Denies: Sickle Cell Disease Past Surgical History Past Surgical History: Reports: Orthopedic Surgery - neck surgery Denies: Pacemaker Social History Lives with: Family Smoking Status: Former Smoker Electronic Cigarette use?: No Frequency of Alcohol Use: None Hx Recreational Drug Use: No Hx Prescription Drug Abuse: No - Advance Directive Resuscitation Status: Full Code Family History Family History: Reviewed & Not Pertinent Parental Family History Reviewed: Yes - Family history of hypertension Children Family History Reviewed: Yes Sibling(s) Family History Reviewed.: Yes Medication/Allergy Home Medications: Atarax 50 tab PO QHS 02/13/11 Carafate 1 gm Tablet 2 tab PO QID PRN 02/13/11 Carisoprodol [Soma 350 Mg Tablet] 350 mg PO PRN PRN 02/13/11 Digoxin [Lanoxin 0.25 mg Tablet] 0.25 mg PO DAILY 02/13/11 Lisinopril [Prinivil] 20 mg PO BID 02/13/11 Metoprolol Tartrate [Lopressor 50 mg Tablet] 25 mg PO BID 02/13/11 Pentosan Polysulfate Sodium [Elmiron] 100 mg PO TID 02/13/11 Potassium Chloride [Klor-Con 10 Meq Tablet.sa] 8 meq PO BID 02/13/11 Hydrochlorothiazide 50 mg PO DAILY 10/03/12 Nifedipine [Adalat CC 60 mg Tablet] 60 mg PO DAILY 10/03/12 Testosterone Cypionate [Depo-Testosterone] 100 mg IM ASDIR PRN 10/03/12 Ondansetron HCl [Zofran 4 mg Tablet] 1 - 2 tab PO PRN PRN 11/12/12 Chlorothiazide [Chlorothiazide 500 mg Tablet] 1 tab PO DAILY 04/30/13 Ketotifen Fumarate [Alaway] 10 ml OP BID 04/30/13 Dexlansoprazole [Dexilant 60 mg Capsule] 60 mg PO PRN PRN 01/22/14 Aspirin [Aspirin EC] 81 mg PO DAILY 01/27/14 Acetaminophen 325 mg PO PRN PRN 08/07/18 Besifloxacin HCl [Besivance 0.6% Oph Susp 5 ml] 1 drop OP ASDIR PRN 08/07/18 Bromfenac Sodium [Prolensa] 1.6 ml OP ASDIR PRN 08/07/18 Clonidine HCl [Clonidine HCl ER] 0.1 mg PO BID 08/07/18 Difluprednate [Durezol] 5 ml OP ASDIR PRN 08/07/18 Finasteride [Proscar 5 mg Tablet] 5 mg PO DAILY 08/07/18 Furosemide [Lasix 20 mg Tablet] 20 mg PO QAM 08/07/18 Oxycodone HCl [Oxycodone HCl ER] 10 mg PO PRN PRN 08/07/18 Spironolactone 50 mg PO DAILY 08/07/18 Allergies/Adverse Reactions: aspirin [Aspirin] Allergy (Mild, Verified 10/12/19 15:29) BLEEDING ULCERS meperidine HCl [From Demerol] Allergy (Unknown, Verified 10/12/19 15:29) NSAIDS (Non-Steroidal Anti-Inflamma [Nsaids] Allergy (Unknown, Verified 10/12/19 15:29) ULCERS IN STOMACH pentazocine lactate [From Talwin] Allergy (Unknown, Verified 10/12/19 15:29) promethazine HCl [From Phenergan] Allergy (Unknown, Verified 10/12/19 15:29) Review of Systems Constitutional: PRESENT: anorexia, weight loss Cardiovascular: ABSENT: chest pain, dyspnea on exertion, edema, orthropnea, palpitations Respiratory: ABSENT: cough, hemoptysis Gastrointestinal: ABSENT: abdominal pain, constipation, diarrhea, hematemesis, hematochezia, nausea, vomiting Genitourinary: ABSENT: dysuria, hematuria Musculoskeletal: ABSENT: joint swelling Integumentary: ABSENT: rash, wounds Neurological: ABSENT: abnormal gait, abnormal speech, confusion, dizziness, focal weakness, syncope Psychiatric: ABSENT: anxiety, depression, homidical ideation, suicidal ideation Physical Exam Vital Signs: Temp Pulse Resp BP Pulse Ox 98.1 F 14 109/71 97 10/14/19 14:01 10/14/19 17:02 10/14/19 17:02 10/14/19 17:00 Intake & Output 10/13/19 10/14/19 10/15/19 06:59 06:59 06:59 Weight 56.2 kg General appearance: PRESENT: no acute distress, cooperative, disheveled, thin Head exam: PRESENT: atraumatic Eye exam: PRESENT: conjunctiva pale, PERRLA Ear exam: PRESENT: normal external ear exam Mouth exam: PRESENT: neck supple Teeth exam: PRESENT: poor dentation Neck exam: ABSENT: carotid bruit, JVD, lymphadenopathy, thyromegaly Respiratory exam: PRESENT: decreased breath sounds Cardiovascular exam: PRESENT: irregular rhythm GI/Abdominal exam: PRESENT: normal bowel sounds, soft. ABSENT: distended, guarding, mass, organolmegaly, rebound, tenderness Rectal exam: PRESENT: deferred Extremities exam: PRESENT: other - Right lower extremity swelling Neurological exam: PRESENT: alert, awake, oriented to person, oriented to place, oriented to time, oriented to situation, CN II-XII grossly intact. ABSENT: motor sensory deficit Psychiatric exam: PRESENT: appropriate affect, normal mood. ABSENT: homicidal ideation, suicidal ideation Skin exam: PRESENT: other - Decubitus wound present mid thoracic region looks infected. Results Laboratory Results: 10/14/19 13:55 10/14/19 13:55 10/14/19 10/14/19 10/14/19 13:55 13:55 13:55 WBC 7.1 RBC 3.63 L Hgb 11.0 L Hct 32.8 L MCV 90 MCH 30.2 MCHC 33.4 RDW 13.0 Plt Count 105 L Seg Neutrophils % 77.9 Sodium 128.9 L Potassium 4.5 Chloride 93 L Carbon Dioxide 30 Anion Gap 6 BUN 22 H Creatinine 0.95 Est GFR ( Amer) > 60 Glucose 86 Calcium 7.9 L Magnesium 2.1 Total Bilirubin 0.6 AST 17 Alkaline Phosphatase 60 Total Protein 5.2 L Albumin 2.5 L TSH 10/14/19 13:55 WBC RBC Hgb Hct MCV MCH MCHC RDW Plt Count Seg Neutrophils % Sodium Potassium Chloride Carbon Dioxide Anion Gap BUN Creatinine Est GFR ( Amer) Glucose Calcium Magnesium Total Bilirubin AST Alkaline Phosphatase Total Protein Albumin TSH 2.16 10/14/19 10/14/19 13:55 13:55 Creatine Kinase 26 L Troponin I < 0.012 Assessment and Plan - Diagnosis (1) Dysphagia Qualifiers: Dysphagia type: unspecified Qualified Code(s): R13.10 - Dysphagia, unspecified Is this a current diagnosis for this admission?: Yes Plan: 10/14/2019-patient is going to be admitted to [facility] for dysphasia speech consult was requested patient is going to kept n.p.o. started on D5 normal saline at 50 cc/h. Dietary consult will be requested and a GI consult is requested. GI prophylaxis initiated on DVT prophylaxis initiated. (2) Chronic atrial fibrillation Is this a current diagnosis for this admission?: No Plan: 10/14/2019-patient has history of chronic atrial fibrillation on digoxin, not on anticoagulation at this time. As per the patient he is on Xarelto before and that he was almost bled to . He takes 81 mg of aspirin at home. (3) Hyponatremia Is this a current diagnosis for this admission?: Yes Plan: 10/14/2019-serum sodium is 129. Hyponatremia may be secondary to poor oral intake. Started on D5 normal saline drip 50 cc/h to repeat the labs tomorrow. (4) Protein-energy malnutrition Qualifiers: Protein-calorie malnutrition severity: severe Qualified Code(s): E43 - Unspecified severe protein-calorie malnutrition Is this a current diagnosis for this admission?: Yes Plan: 10/14/2019-patient BMI is around 17 dietary consult be requested nutrition supplementations will be provided after the evaluation by Dr. Walls for possible debridement of the decubitus wound. (5) Decubitus ulcer Is this a current diagnosis for this admission?: Yes Plan: 10/14/2019-patient has a large decubitus ulcer in the mid thoracic region looks infected. As per the patient it started after he fell. Surgical consult was requested blood cultures are requested wound cultures are requested patient is started on IV Zosyn at this time. Requested for COVID test which is a send out. - Time Anticipated Discharge Disposition[facility] Facility Anticipated Discharge Timeframe: within 72 hours
--- NOTE | 2019-10-14 18:55 | RADIOLOGY REPORT (SQ) ---
EXAM DESCRIPTION: CHEST SINGLE VIEW IMAGES COMPLETED DATE/TIME: 10/14/2019 6:43 pm REASON FOR STUDY: dyspnea COMPARISON: 10/12/2019 EXAM PARAMETERS: NUMBER OF VIEWS: One view. TECHNIQUE: Single frontal radiographic view of the chest acquired. RADIATION DOSE: NA LIMITATIONS: None. FINDINGS: LUNGS AND PLEURA: Hyperexpansion of the lungs. No infiltrate or effusion. MEDIASTINUM AND HILAR STRUCTURES: No masses. Contour normal. HEART AND VASCULAR STRUCTURES: Cardiomegaly. No pulmonary edema. BONES: No acute findings. HARDWARE: None in the chest. OTHER: No other significant finding. IMPRESSION: Cardiomegaly without pulmonary edema. Chronic lung changes. TECHNICAL DOCUMENTATION: JOB ID: [id number] 2010 [employer]- All Rights Reserved Reading location - IP/workstation name: [email or web address]
[2019-10-14] MEDS: DEXTROSE 5%-NORMAL SALINE 1,000 ML IV PRN (20:46)
--- NOTE | 2019-10-14 21:10 | PDOC CONSULTATION ---
Consultation Consult Date: 10/14/19 Provider Consulted: BERTRAM FRANKS Consult reason:: Mid thoracic spine decubitus ulcer History of Present Illness Admission Date/PCP: 10/14/19 17:48 RENATE DEL REAL MD History of Present Illness: HAYLEE JERNIGAN is a 74 year old male with history of chronic atrial fibrillation, on digoxin, hypertension, gastric ulcer and reflux, BPH, irritable bowel syndrome, had a fall about 2 weeks ago and injured his back. Was consulted for decubitus ulcer on his mid thoracic spine. Past Medical History Cardiac Medical History: Reports: Atrial Fibrillation, Hypertension Denies: Coronary Artery Disease, Myocardial Infarction Pulmonary Medical History: Reports: Pneumonia - ASPIRATION PNEUMONIA Denies: Asthma, Bronchitis, Chronic Obstructive Pulmonary Disease (COPD), Tuberculosis Neurological Medical History: Denies: Seizures GI Medical History: Reports: Gastroesophageal Reflux Disease Denies: Hepatitis, Hiatal Hernia Musculoskeltal Medical History: Reports: Arthritis Psychiatric Medical History: Reports: Depression Hematology: Reports: Anemia Denies: Sickle Cell Disease Past Surgical History Past Surgical History: Reports: Orthopedic Surgery - neck surgery Denies: Pacemaker Social History Lives with: Family Smoking Status: Former Smoker Electronic Cigarette use?: No Frequency of Alcohol Use: None Hx Recreational Drug Use: No Hx Prescription Drug Abuse: No - Advance Directive Resuscitation Status: Full Code Family History Family History: Reviewed & Not Pertinent Parental Family History Reviewed: Yes Children Family History Reviewed: No Sibling(s) Family History Reviewed.: No Medication/Allergy Home Medications: Carafate 1 gm Tablet 2 tab PO QID PRN 02/13/11 Digoxin [Lanoxin 0.25 mg Tablet] 0.25 mg PO DAILY 02/13/11 Pentosan Polysulfate Sodium [Elmiron] 100 mg PO TID 02/13/11 Potassium Chloride [Klor-Con 10 Meq Tablet.sa] 8 meq PO BID 02/13/11 Testosterone Cypionate [Depo-Testosterone] 100 mg IM ASDIR PRN 10/03/12 Aspirin [Aspirin EC] 81 mg PO DAILY 01/27/14 Acetaminophen 325 mg PO PRN PRN 08/07/18 Finasteride [Proscar 5 mg Tablet] 5 mg PO DAILY 08/07/18 Furosemide [Lasix 20 mg Tablet] 40 mg PO QAM 08/07/18 Spironolactone 50 mg PO TID 08/07/18 Carvedilol [Coreg 6.25 mg Tablet] 6.25 mg PO ASDIR PRN 10/14/19 Oxycodone HCl [Oxy-Ir 5 mg Tablet] 10 mg PO 5XD 10/14/19 Pantoprazole Sodium [Protonix [address] Tablet] 40 mg PO QAM 10/14/19 Allergies/Adverse Reactions: aspirin [Aspirin] Allergy (Mild, Verified 10/12/19 15:29) BLEEDING ULCERS meperidine HCl [From Demerol] Allergy (Unknown, Verified 10/12/19 15:29) NSAIDS (Non-Steroidal Anti-Inflamma [Nsaids] Allergy (Unknown, Verified 10/12/19 15:29) ULCERS IN STOMACH pentazocine lactate [From Talwin] Allergy (Unknown, Verified 10/12/19 15:29) promethazine HCl [From Phenergan] Allergy (Unknown, Verified 10/12/19 15:29) Review of Systems Review of Systems: Mild pains in the mid back Physical Exam Vital Signs: Temp Pulse Resp BP Pulse Ox 98.1 F 14 109/71 97 10/14/19 14:01 10/14/19 17:02 10/14/19 17:02 10/14/19 17:00 Intake & Output 10/13/19 10/14/19 10/15/19 06:59 06:59 06:59 Weight 56.2 kg Exam: Has decubitus ulcer on the mid back grade 2-3. There is prominence of the spine were apparently patient was lying on his back and irritated this area. The ulcers about 1-1/2 cm in diameter with mild erythema surrounding it. There is no obvious abscess or tissue that needed to be debrided at this time. Results Laboratory Results: 10/14/19 13:55 10/14/19 13:55 10/14/19 10/14/19 10/14/19 13:55 13:55 13:55 WBC 7.1 RBC 3.63 L Hgb 11.0 L Hct 32.8 L MCV 90 MCH 30.2 MCHC 33.4 RDW 13.0 Plt Count 105 L Seg Neutrophils % 77.9 Sodium 128.9 L Potassium 4.5 Chloride 93 L Carbon Dioxide 30 Anion Gap 6 BUN 22 H Creatinine 0.95 Est GFR ( Amer) > 60 Glucose 86 Calcium 7.9 L Magnesium 2.1 Total Bilirubin 0.6 AST 17 Alkaline Phosphatase 60 Total Protein 5.2 L Albumin 2.5 L TSH 10/14/19 13:55 WBC RBC Hgb Hct MCV MCH MCHC RDW Plt Count Seg Neutrophils % Sodium Potassium Chloride Carbon Dioxide Anion Gap BUN Creatinine Est GFR ( Amer) Glucose Calcium Magnesium Total Bilirubin AST Alkaline Phosphatase Total Protein Albumin TSH 2.16 10/14/19 10/14/19 10/14/19 13:55 13:55 19:15 Creatine Kinase 26 L Troponin I < 0.012 < 0.012 Impressions: Chest X-Ray 10/14/19 18:14 IMPRESSION: Cardiomegaly without pulmonary edema. Chronic lung changes. Assessment & Plan - Diagnosis (1) Stage II decubitus ulcer of the mid back Is this a current diagnosis for this admission?: Yes (2) Decubitus ulcer Is this a current diagnosis for this admission?: Yes (3) Dysphagia Qualifiers: Dysphagia type: unspecified Qualified Code(s): R13.10 - Dysphagia, unspecified Is this a current diagnosis for this admission?: Yes (4) Protein-energy malnutrition Qualifiers: Protein-calorie malnutrition severity: severe Qualified Code(s): E43 - Unspecified severe protein-calorie malnutrition Is this a current diagnosis for this admission?: Yes - Time Time Spent: 30 to 50 Minutes - Plan Summary Plan Summary: 74-year-old male with multiple comorbidities including atrial fibrillation on digoxin, hypertension, BPH, gastric ulcer with reflux, esophageal stenosis, had a fall about 2 weeks ago and injured his back. There is a grade 2 decubitus ulcer on the mid back. Recommendations: There is no indication to do any debridement at this time. Continue with support dressings on the decubitus and avoid pressure if possible. We will sign off but call for any other problems.
--- NOTE | 2019-10-14 21:33 | EKG REPORT ---
SEVERITY:- ABNORMAL ECG - ATRIAL FIBRILLATION ATRIAL AND VENTRICULAR PREMATURE COMPLEX LOW VOLTAGE IN FRONTAL LEADS : Confirmed by: Vira Thayer 14-Oct-2019 21:32:31
[2019-10-14] MEDS ORDERED: PIPERACILLIN/TAZOBACTAM 3.375 GM VIAL IV SCH (22:00)
[2019-10-14] MEDS: HEPARIN SOD (PORCINE) 5,000 UNIT/ML 1 ML VIAL SUBCUT SCH (22:38)
[2019-10-14] MEDS: FAMOTIDINE INJ/PF 20 MG/2 ML SDV IV SCH (23:47)
[2019-10-14] MEDS: ACETAMINOPHEN 325 MG TABLET PO PRN (23:50)
[2019-10-14] MEDS: CARVEDILOL 6.25 MG TABLET PO SCH (23:51)
[2019-10-14] MEDS: PIPERACILLIN SODIUM/TAZOBACTAM 3.375 GM in NORMAL SALINE 100 ML IV SCH (23:52)
[2019-10-15 02:31] LABS: URINE AMPHETAMINES SCREEN NEGATIVE; URINE BARBITURATES SCREEN NEGATIVE; URINE BENZODIAZEPINES SCREEN NEGATIVE; URINE COCAINE SCREEN NEGATIVE; URINE MARIJUANA (THC) SCREEN NEGATIVE; URINE METHADONE SCREEN NEGATIVE; URINE PHENCYCLIDINE SCREEN NEGATIVE
[2019-10-15] MEDS: HEPARIN SOD (PORCINE) 5,000 UNIT/ML 1 ML VIAL SUBCUT SCH ×3 (05:02→21:35)
[2019-10-15] MEDS: OXYCODONE HCL IR 5 MG TABLET PO SCH ×5 (06:12→18:36)
[2019-10-15] MEDS: PIPERACILLIN SODIUM/TAZOBACTAM 3.375 GM in NORMAL SALINE 100 ML IV SCH ×3 (06:14→21:38)
[2019-10-15 07:48] LABS: ABSOLUTE LYMPHOCYTES (AUTO) 0.7 10^3/uL (0.5-4.7); ABSOLUTE MONOCYTES (AUTO) 0.4 10^3/uL (0.1-1.4); ABSOLUTE NEUT (AUTO) 5.6 10^3/uL (1.7-8.2); BASOPHILS % (AUTO) 0.5 % (0-2); EOSINOPHILS % (AUTO) 0.3 % (0-6); HEMATOCRIT 38.1 % (37.9-51.0); HEMOGLOBIN 12.5 g/dL (13.5-17.0); LYMPHOCYTES % (AUTO) 10.6 % (13-45); MEAN CORPUSCULAR HEMOGLOBIN 29.8 pg (27.0-33.4); MEAN CORPUSCULAR HGB CONC 32.7 g/dL (32.0-36.0); MEAN CORPUSCULAR VOLUME 91 fl (80-97); MONOCYTES % (AUTO) 6.5 % (3-13); PLATELET COUNT 118 10^3/uL (150-450); RED BLOOD COUNT 4.18 10^6/uL (4.35-5.55); RED CELL DISTRIBUTION WIDTH 13.5 % (11.5-14.0); SEGMENTED NEUTROPHILS % (AUTO) 82.1 % (42-78); TOTAL CELLS COUNTED % (AUTO) 100 %; WHITE BLOOD COUNT 6.8 10^3/uL (4.0-10.5)
[2019-10-15 08:13] LABS: ALBUMIN 2.7 g/dL (3.5-5.0); ALKALINE PHOSPHATASE 58 U/L (38-126); ANION GAP 6 (5-19); ASPARTATE AMINO TRANSFERASE 19 U/L (17-59); BILIRUBIN,TOTAL 0.9 mg/dL (0.2-1.3); BLOOD UREA NITROGEN 19 mg/dL (7-20); CALCIUM 8.3 mg/dL (8.4-10.2); CARBON DIOXIDE 30 mmol/L (22-30); CHLORIDE 95 mmol/L (98-107); CHOLESTEROL 71.85 mg/dL (0-200); GLUCOSE 99 mg/dL (75-110); TOTAL PROTEIN 5.7 g/dL (6.3-8.2); TRIGLYCERIDES 80 mg/dL (<150)
[2019-10-15 08:20] LABS: NT PRO BNP 3170 pg/mL (<450)
[2019-10-15 08:24] LABS: DIRECT LDL 38 mg/dL (<100)
[2019-10-15 08:26] LABS: TROPONIN I < 0.012 ng/mL
[2019-10-15] MEDS: PANTOPRAZOLE SODIUM 40 MG TABLET.DR PO SCH (08:45)
[2019-10-15] MEDS: CARVEDILOL 6.25 MG TABLET PO SCH ×2 (09:05→21:34)
[2019-10-15] MEDS: FAMOTIDINE INJ/PF 20 MG/2 ML SDV IV SCH ×2 (09:06→21:37)
[2019-10-15] MEDS: DIGOXIN 0.25 MG TABLET PO SCH (10:11)
[2019-10-15] MEDS: FINASTERIDE 5 MG TABLET PO SCH (10:12)
[2019-10-15] MEDS: ASPIRIN 81 MG TABLET, ENT COATED PO SCH (10:13)
[2019-10-15] MEDS: DEXTROSE 5%-NORMAL SALINE 1,000 ML IV PRN (10:34)
--- NOTE | 2019-10-15 14:57 | CDI QUERY ---
CDI Query CDI Review: Dear Provider, Please further specify type protein calorie malnutrition: SEVERE MODERATE MILD Clinical data: Ca 8.3 / T prot 5.7 / Alb 2.7 / BMI 17 Thanks, Eleni Youngblood [phone]
--- NOTE | 2019-10-15 16:18 | PDOC PROGRESS REPORT ---
Subjective Progress Note for:: 10/15/19 Subjective:: Per Admitting Physician: "HAYLEE JERNIGAN is a 74 year old male with history of atrial fibrillation on digoxin, hypertension, history of aspiration pneumonia, BPH, kidney stones, gastric with reflux disease, irritable bowel disease, gastric ulcer, arthritis, depression, history of neck surgery came to the emergency room with history of fall 2 weeks ago as per the patient he fell and busted his back.. Patient is also given the history of difficulty swallowing on and off for the last several months and losing weight. Denies any problems with aspiration." 10/15/2019 Patient seen by general surgery who stated patient does not need any debridement of the ulcer along his mid thoracic spine. He will need referral to wound care clinic. GI consulted, seems that incorrect physician was put in the consult that has been fixed today. Dr. Vera reportedly will perform EGD on the patient on Monday if his COVID is negative. COVID test pending. Patient has some mild pain at the ulcer on his back and states he has chronic dysphasia but denies ever having a balloon procedure for strictures. He states he has had upper endoscopy in the past. He cannot remember much of the results that were given to him. He has no other complaints. Reason For Visit: DYSPHAGIA Physical Exam Vital Signs: Temp Pulse Resp BP Pulse Ox 97.2 F 96 19 127/69 H 100 10/15/19 11:54 10/15/19 11:54 10/15/19 11:54 10/15/19 11:54 10/15/19 11:54 Intake & Output 10/14/19 10/15/19 10/16/19 06:59 06:59 06:59 Intake Total 200 1200 Output Total 800 100 Balance -600 1100 Weight 55.2 kg General appearance: PRESENT: no acute distress, thin Head exam: PRESENT: atraumatic, normocephalic Eye exam: PRESENT: conjunctiva pink Mouth exam: PRESENT: moist Cardiovascular exam: PRESENT: RRR. ABSENT: diastolic murmur, rubs, systolic mu rmur GI/Abdominal exam: PRESENT: normal bowel sounds, soft. ABSENT: distended, guarding, mass, organolmegaly, rebound, tenderness Musculoskeletal exam: PRESENT: ambulatory Neurological exam: PRESENT: alert, awake, oriented to person, oriented to place, oriented to time, oriented to situation Psychiatric exam: PRESENT: appropriate affect, normal mood Skin exam: PRESENT: dry, warm, other - Approximately 2 to 3 cm diameter ulceration on spinous process mid thoracic spine, tender, base appears solid and does not have any significant drainage, mild surrounding erythema Results Laboratory Results: 10/15/19 07:18 10/15/19 07:18 10/15/19 10/15/19 10/15/19 07:18 07:18 07:18 WBC 6.8 RBC 4.18 L Hgb 12.5 L Hct 38.1 MCV 91 MCH 29.8 MCHC 32.7 RDW 13.5 Plt Count 118 L Seg Neutrophils % 82.1 H Sodium 131.4 L Potassium 5.0 Chloride 95 L Carbon Dioxide 30 Anion Gap 6 BUN 19 Creatinine 0.77 Est GFR ( Amer) > 60 Glucose 99 Calcium 8.3 L Magnesium 2.2 Total Bilirubin 0.9 AST 19 Alkaline Phosphatase 58 Total Protein 5.7 L Albumin 2.7 L Triglycerides 80 Cholesterol 71.85 LDL Cholesterol Direct 38 VLDL Cholesterol 16.0 HDL Cholesterol 24 L TSH 2.23 10/14/19 20:03 Blood Blood Culture (PCR) - Final 10/14/19 10/14/19 10/14/19 13:55 13:55 19:15 Creatine Kinase 26 L Troponin I < 0.012 < 0.012 NT-Pro-B Natriuret Pep 10/15/19 10/15/19 01:00 07:18 Creatine Kinase Troponin I < 0.012 < 0.012 NT-Pro-B Natriuret Pep 3170 H Impressions: Chest X-Ray 10/14/19 18:14 IMPRESSION: Cardiomegaly without pulmonary edema. Chronic lung changes. Assessment and Plan - Diagnosis (1) Dysphagia Qualifiers: Dysphagia type: unspecified Qualified Code(s): R13.10 - Dysphagia, unspecified Is this a current diagnosis for this admission?: Yes Plan: 10/14/2019-patient is going to be admitted to [facility] for dysphasia speech consult was requested patient is going to kept n.p.o. started on D5 normal saline at 50 cc/h. Dietary consult will be requested and a GI consult is requested. GI prophylaxis initiated on DVT prophylaxis initiated. 10/14/2021 Dysphasia specifically of solids, not liquids GI consulted, planning the EGD on Monday if COVID is negative COVID test pending Possible esophageal strictures, may need esophageal balloon (2) Chronic atrial fibrillation Is this a current diagnosis for this admission?: No Plan: 10/14/2019-patient has history of chronic atrial fibrillation on digoxin, not on anticoagulation at this time. As per the patient he is on Xarelto before and that he was almost bled to . He takes 81 mg of aspirin at home. Continue holding anticoagulation as patient states he is extremely high bleeding risk due to life-threatening bleed in the past (3) Stage II decubitus ulcer of the mid back Is this a current diagnosis for this admission?: Yes Plan: 10/14/2019-patient has a large decubitus ulcer in the mid thoracic region looks infected. As per the patient it started after he fell. Surgical consult was requested blood cultures are requested wound cultures are requested patient is started on IV Zosyn at this time. Requested for COVID test which is a send out. 10/15/2019 COVID test pending General surgery evaluated patient stated he is not in need of any immediate surgery including debridement Needs follow-up with wound care outpatient Blood cultures positive for gram-negative rods, follow-up finalized results Continue Zosyn (4) Decubitus ulcer Is this a current diagnosis for this admission?: Yes (5) Hyponatremia Is this a current diagnosis for this admission?: Yes Plan: 10/14/2019-serum sodium is 129. Hyponatremia may be secondary to poor oral intake. Started on D5 normal saline drip 50 cc/h to repeat the labs tomorrow. 10/15/2019 Resolved (6) Hypotension Qualifiers: Hypotension type: unspecified hypotension type Qualified Code(s): I95.9 - Hypotension, unspecified Is this a current diagnosis for this admission?: Yes (7) Protein-energy malnutrition Qualifiers: Protein-calorie malnutrition severity: severe Qualified Code(s): E43 - Unspecified severe protein-calorie malnutrition Is this a current diagnosis for this admission?: Yes Plan: 10/14/2019-patient BMI is around 17 dietary consult be requested nutrition supplementations will be provided after the evaluation by Dr. Walsl for possible debridement of the decubitus wound. Severe - Time Time Spent with patient: 25-34 minutes Medications reviewed and adjusted accordingly: Yes Anticipated Discharge Disposition: Home with Home Health Anticipated Discharge Timeframe: within 72 hours - Inpatient Certification Based on my medical assessment, after consideration of the patient's comorbidities, presenting symptoms, or acuity I expect that the services needed warrant INPATIENT care.: Yes I certify that my determination is in accordance with my understanding of Medicare's requirements for reasonable and necessary INPATIENT services [42 CFR 412.3e].: Yes Medical Necessity: Significant Comorbidiites Make Outpatient Treatment Too Risky, Need Close Monitoring Due to Risk of Patient Decompensation, Need for IV Antibiotics, Risk of Complication if Not Cared For in Hospital, Risk of Diagnosis Which Will Require Inpatient Eval/Care/Monitoring
--- NOTE | 2019-10-15 17:52 | PDOC CONSULTATION ---
Consultation Consult Date: 10/15/19 Provider Consulted: GARETT ELLIOTT Consult reason:: dysphagia and weight loss History of Present Illness Admission Date/PCP: 10/14/19 17:48 RENATE DEL REAL MD History of Present Illness: HAYLEE JERNIGAN is a 74 year old male Patient is admitted overnight by the hospitalist service his of A fib, patient has a history of gastric ulcers apparently has had EGD in the past, but cannot remember having any dilation done since this has never happened recently sustained a fall Covid 19 testing is in progress prior to having any sort of procedure done patient will need an EGD will perform once documentation that patient is negative needs EGD to exclude possible esophageal obstruction Past Medical History Cardiac Medical History: Reports: Atrial Fibrillation, Hypertension Denies: Coronary Artery Disease, Myocardial Infarction Pulmonary Medical History: Reports: Pneumonia - ASPIRATION PNEUMONIA Denies: Asthma, Bronchitis, Chronic Obstructive Pulmonary Disease (COPD), Tuberculosis Neurological Medical History: Denies: Seizures GI Medical History: Reports: Gastroesophageal Reflux Disease Denies: Hepatitis, Hiatal Hernia Musculoskeltal Medical History: Reports: Arthritis Psychiatric Medical History: Reports: Depression Hematology: Reports: Anemia Denies: Sickle Cell Disease Past Surgical History Past Surgical History: Reports: Orthopedic Surgery - neck surgery Denies: Pacemaker Social History Lives with: Family Smoking Status: Former Smoker Electronic Cigarette use?: No Frequency of Alcohol Use: None Hx Recreational Drug Use: No Hx Prescription Drug Abuse: No - Advance Directive Resuscitation Status: Full Code Family History Family History: Reviewed & Not Pertinent Parental Family History Reviewed: No Children Family History Reviewed: No Sibling(s) Family History Reviewed.: No Medication/Allergy Home Medications: Carafate 1 gm Tablet 2 tab PO QID PRN 02/13/11 Digoxin [Lanoxin 0.25 mg Tablet] 0.25 mg PO DAILY 02/13/11 Pentosan Polysulfate Sodium [Elmiron] 100 mg PO TID 02/13/11 Potassium Chloride [Klor-Con 10 Meq Tablet.sa] 8 meq PO BID 02/13/11 Testosterone Cypionate [Depo-Testosterone] 100 mg IM ASDIR PRN 10/03/12 Aspirin [Aspirin EC] 81 mg PO DAILY 01/27/14 Acetaminophen 325 mg PO PRN PRN 08/07/18 Finasteride [Proscar 5 mg Tablet] 5 mg PO DAILY 08/07/18 Furosemide [Lasix 20 mg Tablet] 40 mg PO QAM 08/07/18 Spironolactone 50 mg PO TID 08/07/18 Carvedilol [Coreg 6.25 mg Tablet] 6.25 mg PO ASDIR PRN 10/14/19 Oxycodone HCl [Oxy-Ir 5 mg Tablet] 10 mg PO 5XD 10/14/19 Pantoprazole Sodium [Protonix [address] Tablet] 40 mg PO QAM 10/14/19 Allergies/Adverse Reactions: aspirin [Aspirin] Allergy (Mild, Verified 10/12/19 15:29) BLEEDING ULCERS meperidine HCl [From Demerol] Allergy (Unknown, Verified 10/12/19 15:29) NSAIDS (Non-Steroidal Anti-Inflamma [Nsaids] Allergy (Unknown, Verified 10/12/19 15:29) ULCERS IN STOMACH pentazocine lactate [From Talwin] Allergy (Unknown, Verified 10/12/19 15:29) promethazine HCl [From Phenergan] Allergy (Unknown, Verified 10/12/19 15:29) Review of Systems Constitutional: ABSENT: fever(s), headache(s), night sweats, weakness Eyes: ABSENT: visual disturbances Ears: ABSENT: hearing changes Nose, Mouth, and Throat: ABSENT: mouth pain, sore throat Respiratory: ABSENT: dyspnea, hemoptysis Gastrointestinal: ABSENT: dysphagia, melena, nausea, vomiting Genitourinary: ABSENT: dysuria, hematuria Musculoskeletal: ABSENT: deformity, joint swelling Integumentary: ABSENT: pruritus Neurological: ABSENT: syncope, tingling, tremor(s), vertigo Endocrine: ABSENT: polydipsia, polyphagia, polyuria Hematologic/Lymphatic: ABSENT: easy bruising Physical Exam Vital Signs: Temp Pulse Resp BP Pulse Ox 97.2 F 96 19 127/69 H 100 10/15/19 11:54 10/15/19 11:54 10/15/19 11:54 10/15/19 11:54 10/15/19 11:54 Intake & Output 10/14/19 10/15/19 10/16/19 06:59 06:59 06:59 Intake Total 200 1200 Output Total 800 100 Balance -600 1100 Weight 55.2 kg General appearance: PRESENT: no acute distress, cooperative Head exam: PRESENT: atraumatic, normocephalic Eye exam: PRESENT: EOMI, PERRLA. ABSENT: nystagmus, periorbital swelling, scleral icterus Mouth exam: PRESENT: moist, neck supple Neck exam: ABSENT: meningismus, tenderness, thyromegaly Respiratory exam: PRESENT: symmetrical, unlabored. ABSENT: tachypnea, wheezes Cardiovascular exam: PRESENT: irregular rhythm GI/Abdominal exam: PRESENT: normal bowel sounds, soft. ABSENT: Sue's sign, rebound, tenderness Extremities exam: ABSENT: joint swelling Neurological exam: PRESENT: alert, awake, CN II-XII grossly intact Skin exam: PRESENT: normal color. ABSENT: mottled, pallor, urticaria, vesicles Results Laboratory Results: 10/15/19 07:18 10/15/19 07:18 10/15/19 10/15/19 10/15/19 07:18 07:18 07:18 WBC 6.8 RBC 4.18 L Hgb 12.5 L Hct 38.1 MCV 91 MCH 29.8 MCHC 32.7 RDW 13.5 Plt Count 118 L Seg Neutrophils % 82.1 H Sodium 131.4 L Potassium 5.0 Chloride 95 L Carbon Dioxide 30 Anion Gap 6 BUN 19 Creatinine 0.77 Est GFR ( Amer) > 60 Glucose 99 Calcium 8.3 L Magnesium 2.2 Total Bilirubin 0.9 AST 19 Alkaline Phosphatase 58 Total Protein 5.7 L Albumin 2.7 L Triglycerides 80 Cholesterol 71.85 LDL Cholesterol Direct 38 VLDL Cholesterol 16.0 HDL Cholesterol 24 L TSH 2.23 10/14/19 20:03 Blood Blood Culture (PCR) - Final 10/14/19 10/14/19 10/14/19 13:55 13:55 19:15 Creatine Kinase 26 L Troponin I < 0.012 < 0.012 NT-Pro-B Natriuret Pep 10/15/19 10/15/19 01:00 07:18 Creatine Kinase Troponin I < 0.012 < 0.012 NT-Pro-B Natriuret Pep 3170 H Impressions: Chest X-Ray 10/14/19 18:14 IMPRESSION: Cardiomegaly without pulmonary edema. Chronic lung changes. Assessment & Plan - Diagnosis (1) Dysphagia Qualifiers: Dysphagia type: unspecified Qualified Code(s): R13.10 - Dysphagia, unspecified Is this a current diagnosis for this admission?: Yes Plan: This is accompanied by weight loss has a history of gastric ulcers in the past Covid 19 testing likely sent out tomorrow but if negative by 24 hours, then will schedule EGD Risks, benefits and alternatives are discussed with the patient further recommendations to follow - Time Time Spent: 50 to 70 Minutes
[2019-10-16] MEDS: ACETAMINOPHEN 325 MG TABLET PO PRN (01:53)
[2019-10-16] MEDS: DEXTROSE 5%-NORMAL SALINE 1,000 ML IV PRN (04:48)
[2019-10-16] MEDS: HEPARIN SOD (PORCINE) 5,000 UNIT/ML 1 ML VIAL SUBCUT SCH ×3 (06:28→22:20)
[2019-10-16] MEDS: OXYCODONE HCL IR 5 MG TABLET PO SCH ×5 (06:30→19:59)
[2019-10-16] MEDS: PIPERACILLIN SODIUM/TAZOBACTAM 3.375 GM in NORMAL SALINE 100 ML IV SCH ×3 (06:31→22:27)
[2019-10-16] MEDS: PANTOPRAZOLE SODIUM 40 MG TABLET.DR PO SCH (08:05)
[2019-10-16] MEDS: ASPIRIN 81 MG TABLET, ENT COATED PO SCH (10:00)
[2019-10-16] MEDS: FAMOTIDINE INJ/PF 20 MG/2 ML SDV IV SCH ×2 (10:00→22:27)
[2019-10-16] MEDS: FINASTERIDE 5 MG TABLET PO SCH (10:00)
[2019-10-16] MEDS: DIGOXIN 0.25 MG TABLET PO SCH (10:00)
[2019-10-16] MEDS: CARVEDILOL 6.25 MG TABLET PO SCH ×2 (10:00→22:27)
--- NOTE | 2019-10-16 15:04 | PDOC PROGRESS REPORT ---
Subjective Progress Note for:: 10/16/19 Subjective:: Per Admitting Physician: "HAYLEE JERNIGAN is a 74 year old male with history of atrial fibrillation on digoxin, hypertension, history of aspiration pneumonia, BPH, kidney stones, gastric with reflux disease, irritable bowel disease, gastric ulcer, arthritis, depression, history of neck surgery came to the emergency room with history of fall 2 weeks ago as per the patient he fell and busted his back.. Patient is also given the history of difficulty swallowing on and off for the last several months and losing weight. Denies any problems with aspiration." 10/15/2019 Patient seen by general surgery who stated patient does not need any debridement of the ulcer along his mid thoracic spine. He will need referral to wound care clinic. GI consulted, seems that incorrect physician was put in the consult that has been fixed today. Dr. Vera reportedly will perform EGD on the patient on Monday if his COVID is negative. COVID test pending. Patient has some mild pain at the ulcer on his back and states he has chronic dysphasia but denies ever having a balloon procedure for strictures. He states he has had upper endoscopy in the past. He cannot remember much of the results that were given to him. He has no other complaints. 10/16/2019 Blood cultures are now growing gram-negative rods in the back ulcer culture is growing GPC C. Patient continued on Zosyn. We will repeat blood cultures today. Patient has severe protein calorie malnutrition and is quite cachectic with diffuse muscle wasting on exam. I believe he is at risk for a GI malignancy given his red flag GI symptoms including progressive weight loss and difficulty swallowing. He also has an extensive history of reflux per patient. COVID testing is pending and if this is negative patient can have EGD on Monday. GI is consulted and following. Consulted physical and occupational therapy. Reason For Visit: DYSPHAGIA Physical Exam Vital Signs: Temp Pulse Resp BP Pulse Ox 97.3 F 77 19 103/60 95 10/16/19 12:19 10/16/19 12:19 10/16/19 12:19 10/16/19 12:10/16/19 12:19 Intake & Output 10/15/19 10/16/19 10/17/19 06:59 06:59 06:59 Intake Total 200 2770 100 Output Total 800 100 Balance -600 2670 100 Weight 55.2 kg 57.2 kg General appearance: PRESENT: no acute distress, well-developed, well-nourished Head exam: PRESENT: atraumatic, normocephalic Eye exam: PRESENT: conjunctiva pink. ABSENT: scleral icterus Mouth exam: PRESENT: moist, tongue midline Respiratory exam: PRESENT: clear to auscultation maddy. ABSENT: rales, rhonchi, wheezes Cardiovascular exam: PRESENT: RRR. ABSENT: diastolic murmur, rubs, systolic murmur Pulses: PRESENT: normal dorsalis pedis pul GI/Abdominal exam: PRESENT: normal bowel sounds, soft. ABSENT: distended, g uarding, mass, organolmegaly, rebound, tenderness Rectal exam: PRESENT: deferred Neurological exam: PRESENT: alert, awake, oriented to person, oriented to place, oriented to time, oriented to situation Psychiatric exam: PRESENT: appropriate affect, normal mood Skin exam: PRESENT: dry, intact, warm, other - Approximately 3 cm ulcer on mid thoracic spine along spinous process Results Laboratory Results: 10/15/19 07:18 10/15/19 07:18 10/14/19 20:03 Blood Blood Culture (PCR) - Final 10/14/19 10/14/19 10/14/19 13:55 13:55 19:15 Creatine Kinase 26 L Troponin I < 0.012 < 0.012 NT-Pro-B Natriuret Pep 10/15/19 10/15/19 01:00 07:18 Creatine Kinase Troponin I < 0.012 < 0.012 NT-Pro-B Natriuret Pep 3170 H Impressions: Chest X-Ray 10/14/19 18:14 IMPRESSION: Cardiomegaly without pulmonary edema. Chronic lung changes. Assessment and Plan - Diagnosis (1) Dysphagia Qualifiers: Dysphagia type: unspecified Qualified Code(s): R13.10 - Dysphagia, unspecified Is this a current diagnosis for this admission?: Yes Plan: 10/14/2019-patient is going to be admitted to [facility] for dysphasia speech consult was requested patient is going to kept n.p.o. started on D5 normal saline at 50 cc/h. Dietary consult will be requested and a GI consult is requested. GI prophylaxis initiated on DVT prophylaxis initiated. 10/15/2019 Dysphasia specifically of solids, not liquids GI consulted, planning the EGD on Monday if COVID is negative COVID test pending Possible esophageal strictures, may need esophageal balloon 10/16/2019 COVID-19 testing pending, if negative get EGD on Monday GI following (2) Chronic atrial fibrillation Is this a current diagnosis for this admission?: No (3) Stage II decubitus ulcer of the mid back Is this a current diagnosis for this admission?: Yes Plan: 10/14/2019-patient has a large decubitus ulcer in the mid thoracic region looks infected. As per the patient it started after he fell. Surgical consult was requested blood cultures are requested wound cultures are requested patient is started on IV Zosyn at this time. Requested for COVID test which is a send out. 10/15/2019 COVID test pending General surgery evaluated patient stated he is not in need of any immediate surgery including debridement Needs follow-up with wound care outpatient Blood cultures positive for gram-negative rods, follow-up finalized results Continue Zosyn 10/16/2019 Blood culture results not finalized yet Zosyn continues Repeat blood cultures today (4) Decubitus ulcer Is this a current diagnosis for this admission?: Yes (5) Hyponatremia Is this a current diagnosis for this admission?: Yes (6) Hypotension Qualifiers: Hypotension type: unspecified hypotension type Qualified Code(s): I95.9 - Hypotension, unspecified Is this a current diagnosis for this admission?: Yes (7) Protein-energy malnutrition Qualifiers: Protein-calorie malnutrition severity: severe Qualified Code(s): E43 - Unspecified severe protein-calorie malnutrition Is this a current diagnosis for this admission?: Yes Plan: 10/14/2019-patient BMI is around 17 dietary consult be requested nutrition supplementations will be provided after the evaluation by Dr. Walls for poss ible debridement of the decubitus wound. Severe - Time Time Spent with patient: 25-34 minutes Medications reviewed and adjusted accordingly: Yes Anticipated Discharge Disposition: Home with Home Health Anticipated Discharge Timeframe: within 72 hours - Inpatient Certification Based on my medical assessment, after consideration of the patient's comorbidi ties, presenting symptoms, or acuity I expect that the services needed warrant INPATIENT care.: Yes I certify that my determination is in accordance with my understanding of Zohra robles's requirements for reasonable and necessary INPATIENT services [42 CFR 412.3e].: Yes Medical Necessity: Significant Comorbidiites Make Outpatient Treatment Too Risky, Need Close Monitoring Due to Risk of Patient Decompensation, Need for IV Antibiotics, Risk of Complication if Not Cared For in Hospital, Risk of Diagnosis Which Will Require Inpatient Eval/Care/Monitoring
[2019-10-17] MEDS ORDERED: OXYCODONE HCL IR 5 MG TABLET PO PRN (00:57)
[2019-10-17] MEDS ORDERED: OXYCODONE HCL IR 5 MG TABLET PO ONE (01:00)
[2019-10-17] MEDS: OXYCODONE HCL IR 5 MG TABLET PO SCH ×6 (01:53→22:35)
[2019-10-17] MEDS: HEPARIN SOD (PORCINE) 5,000 UNIT/ML 1 ML VIAL SUBCUT SCH ×3 (05:56→22:27)
[2019-10-17] MEDS: PIPERACILLIN SODIUM/TAZOBACTAM 3.375 GM in NORMAL SALINE 100 ML IV SCH ×3 (06:04→22:35)
[2019-10-17] MEDS: DEXTROSE 5%-NORMAL SALINE 1,000 ML IV PRN (06:07)
--- NOTE | 2019-10-17 08:01 | Progress Note ---
Provider Note Provider Note: I do not see any results of patient's Covid 19 testing if patient is to have any procedure done tomorrow , this will need to be available first I have asked nursing to look into this
[2019-10-17] MEDS: PANTOPRAZOLE SODIUM 40 MG TABLET.DR PO SCH (08:39)
[2019-10-17] MEDS ORDERED: LORAZEPAM INJ 2 MG/1 ML VIAL IV PRN (08:42)
[2019-10-17] MEDS: FINASTERIDE 5 MG TABLET PO SCH (09:57)
[2019-10-17] MEDS: DIGOXIN 0.25 MG TABLET PO SCH (09:58)
[2019-10-17] MEDS: CARVEDILOL 6.25 MG TABLET PO SCH ×2 (09:58→22:37)
[2019-10-17] MEDS: ASPIRIN 81 MG TABLET, ENT COATED PO SCH (09:58)
[2019-10-17] MEDS: FAMOTIDINE INJ/PF 20 MG/2 ML SDV IV SCH ×2 (10:14→22:36)
--- NOTE | 2019-10-17 11:36 | RADIOLOGY REPORT (SQ) ---
EXAM DESCRIPTION: MRI THORACIC SPINE COMBO IMAGES COMPLETED DATE/TIME: 10/17/2019 11:05 am REASON FOR STUDY: abscess/ulcer along T Spine COMPARISON: Chest CT 07/13/2016 TECHNIQUE: Sagittal and Axial imaging includes T1, T2, STIR and gradient echo sequences. T1 post ga dolinium sequences. CONTRAST TYPE AND DOSE: 15 mL Prohance. RENAL FUNCTION: Not indicated. ACR Type II contrast agent associated with few, if any, unconfounded cases of NSF LIMITATIONS: None. FINDINGS: LOCALIZER: Small right-sided pleural effusion. ALIGNMENT: Increased kyphosis without focal wedge compression deformity. VERTEBRAE: Intact. BONE MARROW: Incidental note is made of a small T8 vertebral body intraosseous hemangioma. No eviden ce of infiltrative process. No acute findings. HARDWARE: Partially imaged cervical ACDF hardware. CORD: Normal in size and signal intensity. SOFT TISSUES: All there is a 4.1 x 1.5 x 5.6 cm T1 hypointense, T2 hyperintense, rim enhancing fluid collection within the left paraspinous subcutaneous fat at the T9-T11 level. This appears to decompr ess through the skin near the midline at the T10 level. THORACIC DISCS T1-T12: No significant spinal stenosis or exit foraminal stenosis. LOWER CERVICAL: Incompletely imaged. No significant spinal stenosis or exit foraminal stenosis. UPPER LUMBAR: Incompletely imaged. No significant spinal stenosis or exit foraminal stenosis. ENHANCEMENT: As above. OTHER: No other significant finding. IMPRESSION: 4.1 x 1.5 x 5.6 cm subcutaneous abscess of the left paraspinous subcutaneous tissues ; t his appears to decompress through the skin near the midline at the T10 level. The adjacent musculatu re and osseous structures are normal. Incidental note is made of a small right-sided pleural effusio n. TECHNICAL DOCUMENTATION: JOB ID: [id number] 2010 [employer]- All Rights Reserved Reading location - IP/workstation name: [email or web address]
[2019-10-17 11:54] LABS: ABSOLUTE LYMPHOCYTES (AUTO) 0.7 10^3/uL (0.5-4.7); ABSOLUTE MONOCYTES (AUTO) 0.5 10^3/uL (0.1-1.4); ABSOLUTE NEUT (AUTO) 3.7 10^3/uL (1.7-8.2); BASOPHILS % (AUTO) 0.4 % (0-2); EOSINOPHILS % (AUTO) 0.9 % (0-6); HEMATOCRIT 32.4 % (37.9-51.0); HEMOGLOBIN 10.7 g/dL (13.5-17.0); MEAN CORPUSCULAR HEMOGLOBIN 29.7 pg (27.0-33.4); MEAN CORPUSCULAR HGB CONC 32.9 g/dL (32.0-36.0); MEAN CORPUSCULAR VOLUME 91 fl (80-97); MONOCYTES % (AUTO) 9.6 % (3-13); PLATELET COUNT 108 10^3/uL (150-450); RED BLOOD COUNT 3.58 10^6/uL (4.35-5.55); RED CELL DISTRIBUTION WIDTH 13.3 % (11.5-14.0); SEGMENTED NEUTROPHILS % (AUTO) 74.1 % (42-78); TOTAL CELLS COUNTED % (AUTO) 100 %
[2019-10-17 12:18] LABS: BLOOD UREA NITROGEN 13 mg/dL (7-20); CALCIUM 7.7 mg/dL (8.4-10.2); GLUCOSE 96 mg/dL (75-110); POTASSIUM 4.1 mmol/L (3.6-5.0)
[2019-10-17 12:23] LABS: CARBON DIOXIDE 30 mmol/L (22-30); CHLORIDE 99 mmol/L (98-107)
[2019-10-17 12:43] LABS: ANION GAP 3 (5-19)
--- NOTE | 2019-10-17 14:00 | PDOC PROGRESS REPORT ---
Subjective Subjective:: Per Admitting Physician: "HAYLEE JERNIGAN is a 74 year old male with history of atrial fibrillation on digoxin, hypertension, history of aspiration pneumonia, BPH, kidney stones, gastric with reflux disease, irritable bowel disease, gastric ulcer, arthritis, depression, history of neck surgery came to the emergency room with history of fall 2 weeks ago as per the patient he fell and busted his back.. Patient is also given the history of difficulty swallowing on and off for the last several months and losing weight. Denies any problems with aspiration." 10/15/2019 Patient seen by general surgery who stated patient does not need any debridement of the ulcer along his mid thoracic spine. He will need referral to wound care clinic. GI consulted, seems that incorrect physician was put in the consult that has been fixed today. Dr. Vera reportedly will perform EGD on the patient on Monday if his COVID is negative. COVID test pending. Patient has some mild pain at the ulcer on his back and states he has chronic dysphasia but denies ever having a balloon procedure for strictures. He states he has had upper endoscopy in the past. He cannot remember much of the results that were given to him. He has no other complaints. 10/16/2019 Blood cultures are now growing gram-negative rods in the back ulcer culture is growing GPC C. Patient continued on Zosyn. We will repeat blood cultures today. Patient has severe protein calorie malnutrition and is quite cachectic with diffuse muscle wasting on exam. I believe he is at risk for a GI malignancy given his red flag GI symptoms including progressive weight loss and difficulty swallowing. He also has an extensive history of reflux per patient. COVID testing is pending and if this is negative patient can have EGD on Monday. GI is consulted and following. Consulted physical and occupational therapy. 10/17/2019 Patient had MRI of his thoracic spine done today and it revealed 5.6 cm abscess which have called to inform the general surgeon about. The abscess does not appear to be causing any osteomyelitis as of yet. Patient has a negative COVID test but the result was put in incorrectly and it is not currently showing up under the current visit. The result can be viewed if you click all visits results in the laboratory tab. RN will be calling the lab to see if they can fix this incorrect entry. Patient was rather anxious to get his MRI this morning requesting a calming medicine and he was given 1 mg Ativan. GI put a note in the chart asking about the COVID test and RN will make sure that they are aware it is negative. Patient will likely need I&D of his thoracic spine abscess and EGD tomorrow as well if both can be done while he is in the OR. Blood culture on 10/13 grew Acinetobacter B. pansensitive growing in 1/2 bottles. Likely this is a contaminant the patient has been treated with IV antibiotics regardless, repeat blood cultures from yesterday are still pending. Patient has no new complaints other than pain in his back near the abscess. Reason For Visit: DYSPHAGIA Physical Exam Vital Signs: Temp Pulse Resp BP Pulse Ox 97.8 F 69 20 111/62 94 10/17/19 08:47 10/17/19 10:00 10/17/19 08:28 10/17/19 10:00 10/17/19 08:28 Intake & Output 10/16/19 10/17/19 10/18/19 06:59 06:59 06:59 Intake Total 2770 2400 Output Total 100 200 Balance 2670 2200 Weight 57.2 kg 57.2 kg Results Laboratory Results: 10/17/19 11:30 10/17/19 11:30 10/17/19 10/17/19 11:30 11:30 WBC 5.0 RBC 3.58 L Hgb 10.7 L Hct 32.4 L MCV 91 MCH 29.7 MCHC 32.9 RDW 13.3 Plt Count 108 L Seg Neutrophils % 74.1 Sodium 131.9 L Potassium 4.1 Chloride 99 Carbon Dioxide 30 Anion Gap 3 L BUN 13 Creatinine 0.70 Est GFR ( Amer) > 60 Glucose 96 Calcium 7.7 L 10/14/19 20:03 Blood Blood Culture (PCR) - Final 10/14/19 20:03 Blood Blood Culture - Final Acinetobacter Baumannii/Haem 10/14/19 19:30 Back - Middle Gram Stain - Final 10/14/19 19:30 Back - Middle Wound Culture - Final Staphylococcus Aureus No Anaerobic Organisms 10/14/19 10/14/19 10/14/19 13:55 13:55 19:15 Creatine Kinase 26 L Troponin I < 0.012 < 0.012 NT-Pro-B Natriuret Pep 10/15/19 10/15/19 01:00 07:18 Creatine Kinase Troponin I < 0.012 < 0.012 NT-Pro-B Natriuret Pep 3170 H Impressions: Chest X-Ray 10/14/19 18:14 IMPRESSION: Cardiomegaly without pulmonary edema. Chronic lung changes. Thoracic Spine MRI 10/17/19 00:00 IMPRESSION: 4.1 x 1.5 x 5.6 cm subcutaneous abscess of the left paraspinous subcutaneous tissues ; this appears to decompress through the skin near the midline at the T10 level. The adjacent musculature and osseous structures are normal. Incidental note is made of a small right-sided pleural effusion. Assessment and Plan - Diagnosis (1) Dysphagia Qualifiers: Dysphagia type: unspecified Qualified Code(s): R13.10 - Dysphagia, unspecified Is this a current diagnosis for this admission?: Yes (2) Chronic atrial fibrillation Is this a current diagnosis for this admission?: No (3) Stage II decubitus ulcer of the mid back Is this a current diagnosis for this admission?: Yes (4) Decubitus ulcer Is this a current diagnosis for this admission?: Yes (5) Hyponatremia Is this a current diagnosis for this admission?: Yes (6) Hypotension Qualifiers: Hypotension type: unspecified hypotension type Qualified Code(s): I95.9 - Hypotension, unspecified Is this a current diagnosis for this admission?: Yes (7) Protein-energy malnutrition Qualifiers: Protein-calorie malnutrition severity: severe Qualified Code(s): E43 - Unspecified severe protein-calorie malnutrition Is this a current diagnosis for this admission?: Yes - Time Time Spent with patient: 25-34 minutes Medications reviewed and adjusted accordingly: Yes Anticipated Discharge Disposition: Home with Home Health Anticipated Discharge Timeframe: within 72 hours - Inpatient Certification Based on my medical assessment, after consideration of the patient's comorbidities, presenting symptoms, or acuity I expect that the services needed warrant INPATIENT care.: Yes I certify that my determination is in accordance with my understanding of Medicare's requirements for reasonable and necessary INPATIENT services [42 CFR 412.3e].: Yes Medical Necessity: Significant Comorbidiites Make Outpatient Treatment Too Risky, Need Close Monitoring Due to Risk of Patient Decompensation, Need for IV Antibiotics, Need for Surgery, Risk of Complication if Not Cared For in Hospital, Risk of Diagnosis Which Will Require Inpatient Eval/Care/Monitoring
[2019-10-17] MEDS ORDERED: LIDOCAINE 1% INJ-PF (10 MG/ML) 30 ML SDV INJ PRN (15:03)
--- NOTE | 2019-10-17 18:59 | Operative Report ---
Operative Report DATE OF SURGERY: 10/17/19 PREOPERATIVE DIAGNOSIS: Abscess of the mid back POSTOPERATIVE DIAGNOSIS: Same OPERATION: Incision and drainage of mid back abscess SURGEON: BERTRAM FRANKS ANESTHESIA: Local TISSUE REMOVED OR ALTERED: Pus sent for culture and sensitivity COMPLICATIONS: None ESTIMATED BLOOD LOSS: 2 cc QUANTITATIVE BLOOD LOSS: 2 INTRAOPERATIVE FINDINGS: A 4 x 4 centimeter abscess down into the fascia of the mid back to the left of the thoracic spine where there was a also a decubitus ulcer. The ulcer itself appears to be not grossly involved though the abscess was extending to the bottom part of the ulcer PROCEDURE: After informed consent was obtained with the patient and with his son patient was then placed in the right lateral decubitus position while in bed. Area of the abscess was left over the mid thoracic spine where there was a stage II decubitus ulcer. Patient is examined about 3 days ago and no abscess was noted at the time. The area was then prepped and draped in the usual sterile fashion. Local anesthesia was infiltrated over the fluctuant area to the left of the mid thoracic spine. A longitudinal incision was made to about 2-1/2 cm long. The was a small amount of purulent material came out and this was subsequently probed and more pus noted. Cultures were then obtained. I was able to put my finger and digitally explored area and no obvious compartments were noted. Cavity roughly measured about 4 x 4 cm down to the fascia. The area was then irrigated with about 40 cc of saline. It was subsequently packed with third of a bottle of quarter inch iodoform gauze. Sterile 4 x 4 and ABD pads was used to dress the wound and tape with paper tape. Patient tolerated procedure well. The packing will be removed in 24 to 48hours.
[2019-10-18] MEDS: OXYCODONE HCL IR 5 MG TABLET PO SCH ×6 (03:03→22:13)
[2019-10-18] MEDS: HEPARIN SOD (PORCINE) 5,000 UNIT/ML 1 ML VIAL SUBCUT SCH ×3 (05:49→21:40)
[2019-10-18] MEDS: PIPERACILLIN SODIUM/TAZOBACTAM 3.375 GM in NORMAL SALINE 100 ML IV SCH ×3 (06:01→22:12)
[2019-10-18] MEDS ORDERED: PROPOFOL INJ 200 MG/20 ML VIAL IV ONE (06:23)
[2019-10-18] MEDS: DEXTROSE 5%-NORMAL SALINE 1,000 ML IV PRN ×2 (09:21→20:25)
[2019-10-18] MEDS: PANTOPRAZOLE SODIUM 40 MG TABLET.DR PO SCH (09:33)
[2019-10-18] MEDS: CARVEDILOL 6.25 MG TABLET PO SCH ×2 (09:57→22:13)
[2019-10-18] MEDS: FAMOTIDINE INJ/PF 20 MG/2 ML SDV IV SCH ×2 (09:58→22:14)
[2019-10-18] MEDS ORDERED: FENTANYL CITRATE INJ/PF 100 MCG/2 ML AMPUL IV PRN ×3 (11:10)
[2019-10-18] MEDS ORDERED: DIPHENHYDRAMINE HCL 50 MG/ML VIAL IV PRN (11:10)
[2019-10-18] MEDS ORDERED: MEPERIDINE HCL/PF INJ 25 MG/1 ML DISP.SYRIN IV PRN (11:10)
[2019-10-18] MEDS ORDERED: PROMETHAZINE HCL INJ 25 MG/1 ML VIAL IV PRN ×2 (11:10)
--- NOTE | 2019-10-18 11:12 | Operative Report ---
Operative Report DATE OF SURGERY: 10/18/19 Operative Report: The risks benefits and alternatives of the procedure explained to the patient in detail and informed consent is obtained.A GIF Olympus video scope was inserted into the patient's mouth and hypopharynx, the esophagus is identified intubated and insufflated ,the scope was then advanced through the esophagus stomach and duodenum, retroflexion maneuver is done the esophagus stomach and first and second portions of the duodenum examined PREOPERATIVE DIAGNOSIS: Dysphagia POSTOPERATIVE DIAGNOSIS: No esophageal ulceration, stricture or mass is noted. Stacey esophagitis likely status post brushing. Status post Ross-en-Y surgery. Both the afferent and efferent loops are patent. Mild inflammation in the gastric pouch status post biopsy OPERATION: EGD with biopsy SURGEON: GARETT ELLIOTT ANESTHESIA: LMAC TISSUE REMOVED OR ALTERED: As noted above COMPLICATIONS: None. ESTIMATED BLOOD LOSS: None. INTRAOPERATIVE FINDINGS: As noted above. PROCEDURE: Patient tolerated the procedure well. No immediate postprocedure complications are noted. Patient is sent back to his room in good condition. Resume diet as tolerated. Wait on biopsies. Further recommendations to follow. Recommend nystatin swish and swallow and dosage change to depend on patient's renal function Follow-up as needed
--- NOTE | 2019-10-18 13:15 | PDOC PROGRESS REPORT ---
Subjective Progress Note for:: 10/18/19 Subjective:: Comfortable, no complaints Reason For Visit: DYSPHAGIA Physical Exam Vital Signs: Temp Pulse Resp BP Pulse Ox 97.8 F 74 16 118/74 100 10/18/19 11:29 10/18/19 11:29 10/18/19 11:29 10/18/19 11:29 10/18/19 11:29 Intake & Output 10/17/19 10/18/19 10/19/19 06:59 06:59 06:59 Intake Total 2400 1560 250 Output Total 200 900 100 Balance 2200 660 150 Weight 57.2 kg 57.2 kg General appearance: PRESENT: no acute distress Respiratory exam: PRESENT: other - Chest = well-healing made thoracic posterior wound with packing defied, minimal erythema, no odor, no purulent drainage Results Laboratory Results: 10/17/19 11:30 10/17/19 11:30 10/17/19 18:00 Back - Abscess Gram Stain - Final 10/14/19 20:03 Blood Blood Culture (PCR) - Final 10/14/19 20:03 Blood Blood Culture - Final Acinetobacter Baumannii/Haem 10/14/19 10/14/19 10/14/19 13:55 13:55 19:15 Creatine Kinase 26 L Troponin I < 0.012 < 0.012 NT-Pro-B Natriuret Pep 10/15/19 10/15/19 01:00 07:18 Creatine Kinase Troponin I < 0.012 < 0.012 NT-Pro-B Natriuret Pep 3170 H Impressions: Chest X-Ray 10/14/19 18:14 IMPRESSION: Cardiomegaly without pulmonary edema. Chronic lung changes. Thoracic Spine MRI 10/17/19 00:00 IMPRESSION: 4.1 x 1.5 x 5.6 cm subcutaneous abscess of the left paraspinous subcutaneous tissues ; this appears to decompress through the skin near the midline at the T10 level. The adjacent musculature and osseous structures are normal. Incidental note is made of a small right-sided pleural effusion. Assessment & Plan - Diagnosis (1) Stage II decubitus ulcer of the mid back Is this a current diagnosis for this admission?: Yes - Time Critical Time spent with patient: 15-24 minutes Medications reviewed and adjusted accordingly: Yes Anticipated Discharge Disposition: As per primary care physician Anticipated Discharge Timeframe: As per primary care physician - Plan Summary Plan Summary: Assessment: Postoperative day #1 following incision and debridement of mid thoracic posterio r decubitus grade 2 Post debridement wound appears to be clean, with minimal erythema, no evidence o f purulent drainage, minimal pain on palpation Plan: Replace iodoform gauze twice a day This monitor intraoperative cultures to identify the organism causing infection and tailor antibiotic treatment of the infection I will sign off. Please call me with patient's
[2019-10-18] MEDS: DIGOXIN 0.25 MG TABLET PO SCH (15:05)
[2019-10-18] MEDS: ASPIRIN 81 MG TABLET, ENT COATED PO SCH (15:05)
[2019-10-18] MEDS: FINASTERIDE 5 MG TABLET PO SCH (15:07)
--- NOTE | 2019-10-18 18:23 | PDOC PROGRESS REPORT ---
Subjective Subjective:: Per Admitting Physician: "HAYLEE JERNIGAN is a 74 year old male with history of atrial fibrillation on digoxin, hypertension, history of aspiration pneumonia, BPH, kidney stones, gastric with reflux disease, irritable bowel disease, gastric ulcer, arthritis, depression, history of neck surgery came to the emergency room with history of fall 2 weeks ago as per the patient he fell and busted his back.. Patient is also given the history of difficulty swallowing on and off for the last several months and losing weight. Denies any problems with aspiration." 10/15/2019 Patient seen by general surgery who stated patient does not need any debridement of the ulcer along his mid thoracic spine. He will need referral to wound care clinic. GI consulted, seems that incorrect physician was put in the consult that has been fixed today. Dr. Vera reportedly will perform EGD on the patient on Monday if his COVID is negative. COVID test pending. Patient has some mild pain at the ulcer on his back and states he has chronic dysphasia but denies ever having a balloon procedure for strictures. He states he has had upper endoscopy in the past. He cannot remember much of the results that were given to him. He has no other complaints. 10/16/2019 Blood cultures are now growing gram-negative rods in the back ulcer culture is growing GPC C. Patient continued on Zosyn. We will repeat blood cultures today. Patient has severe protein calorie malnutrition and is quite cachectic with diffuse muscle wasting on exam. I believe he is at risk for a GI malignancy given his red flag GI symptoms including progressive weight loss and difficulty swallowing. He also has an extensive history of reflux per patient. COVID testing is pending and if this is negative patient can have EGD on Monday. GI is consulted and following. Consulted physical and occupational therapy. 10/17/2019 Patient had MRI of his thoracic spine done today and it revealed 5.6 cm abscess which have called to inform the general surgeon about. The abscess does not appear to be causing any osteomyelitis as of yet. Patient has a negative COVID test but the result was put in incorrectly and it is not currently showing up under the current visit. The result can be viewed if you click all visits results in the laboratory tab. RN will be calling the lab to see if they can fix this incorrect entry. Patient was rather anxious to get his MRI this morning requesting a calming medicine and he was given 1 mg Ativan. GI put a note in the chart asking about the COVID test and RN will make sure that they are aware it is negative. Patient will likely need I&D of his thoracic spine abscess and EGD tomorrow as well if both can be done while he is in the OR. Blood culture on 10/13 grew Acinetobacter B. pansensitive growing in 1/2 bottles. Likely this is a contaminant the patient has been treated with IV antibiotics regardless, repeat blood cultures from yesterday are still pending. Patient has no new complaints other than pain in his back near the abscess. 10/18/2019 Cultures from wound growing bacteria, speciation and sensitivity not back yet. Long discussion with the patient and his son today about the plan going forward. Patient son states he cannot care for the patient at home and he would like him to go to SNF. PT/OT consulted. Patient went down for EGD today and reportedly has esophageal fungal infection. Start nystatin swish and swallow. Stacey esophagitis noted on EGD. Start Diflucan. Patient's back seems to be getting a bit better now that has had I&D. Antibiotics continue for this. PT/OT will need to give clear recommendations on SNF versus home health versus none. Patient has no new complaints today. Reason For Visit: DYSPHAGIA Physical Exam Vital Signs: Temp Pulse Resp BP Pulse Ox 98.7 F 74 18 147/65 H 98 10/18/19 16:00 10/18/19 16:00 10/18/19 16:00 10/18/19 16:00 10/18/19 16:00 Intake & Output 10/17/19 10/18/19 10/19/19 06:59 06:59 06:59 Intake Total 2400 1560 500 Output Total 200 900 200 Balance 2200 660 300 Weight 57.2 kg 57.2 kg Results Laboratory Results: 10/17/19 11:30 10/17/19 11:30 10/17/19 18:00 Back - Abscess Gram Stain - Final 10/14/19 10/14/19 10/14/19 13:55 13:55 19:15 Creatine Kinase 26 L Troponin I < 0.012 < 0.012 NT-Pro-B Natriuret Pep 10/15/19 10/15/19 01:00 07:18 Creatine Kinase Troponin I < 0.012 < 0.012 NT-Pro-B Natriuret Pep 3170 H Impressions: Chest X-Ray 10/14/19 18:14 IMPRESSION: Cardiomegaly without pulmonary edema. Chronic lung changes. Thoracic Spine MRI 10/17/19 00:00 IMPRESSION: 4.1 x 1.5 x 5.6 cm subcutaneous abscess of the left paraspinous subcutaneous tissues ; this appears to decompress through the skin near the midline at the T10 level. The adjacent musculature and osseous structures are normal. Incidental note is made of a small right-sided pleural effusion. Assessment and Plan - Diagnosis (1) Dysphagia Qualifiers: Dysphagia type: unspecified Qualified Code(s): R13.10 - Dysphagia, unspecified Is this a current diagnosis for this admission?: Yes Plan: 10/14/2019-patient is going to be admitted to [facility] for dysphasia speech consult was requested patient is going to kept n.p.o. started on D5 normal saline at 50 cc/h. Dietary consult will be requested and a GI consult is requested. GI prophylaxis initiated on DVT prophylaxis initiated. 10/15/2019 Dysphasia specifically of solids, not liquids GI consulted, planning the EGD on Monday if COVID is negative COVID test pending Possible esophageal strictures, may need esophageal balloon 10/16/2019 COVID-19 testing pending, if negative get EGD on Monday GI following 10/18/2019 EGD performed 10/17 showing Stacey esophagitis, no masses/tumors/ulcers Antifungal treatment (2) Chronic atrial fibrillation Is this a current diagnosis for this admission?: No (3) Stage II decubitus ulcer of the mid back Is this a current diagnosis for this admission?: Yes (4) Decubitus ulcer Is this a current diagnosis for this admission?: Yes (5) Hyponatremia Is this a current diagnosis for this admission?: Yes (6) Hypotension Qualifiers: Hypotension type: unspecified hypotension type Qualified Code(s): I95.9 - Hypotension, unspecified Is this a current diagnosis for this admission?: Yes (7) Protein-energy malnutrition Qualifiers: Protein-calorie malnutrition severity: severe Qualified Code(s): E43 - Unspecified severe protein-calorie malnutrition Is this a current diagnosis for this admission?: Yes (10) Stacey esophagitis Is this a current diagnosis for this admission?: Yes Plan: Seen on EGD on 10/17 Nystatin swish and swallow Diflucan IV - Time Time Spent with patient: 25-34 minutes Medications reviewed and adjusted accordingly: Yes Anticipated Discharge Disposition: Senior Living Facility Anticipated Discharge Timeframe: within 24 hours - Inpatient Certification Based on my medical assessment, after consideration of the patient's comorbidities, presenting symptoms, or acuity I expect that the services needed warrant INPATIENT care.: Yes I certify that my determination is in accordance with my understanding of Medicare's requirements for reasonable and necessary INPATIENT services [42 CFR 412.3e].: Yes Medical Necessity: Significant Comorbidiites Make Outpatient Treatment Too Risky, Need Close Monitoring Due to Risk of Patient Decompensation, Need for IV Antibiotics, Risk of Complication if Not Cared For in Hospital, Risk of Diagnosis Which Will Require Inpatient Eval/Care/Monitoring
[2019-10-18] MEDS: FLUCONAZOLE 400 MG/NS RTU 400 MG/200 ML RTUPB IV SCH (20:24)
[2019-10-18] MEDS: NYSTATIN 500000 UNIT/5 ML UDCUP PO SCH ×2 (20:24→21:40)
[2019-10-19] MEDS: OXYCODONE HCL IR 5 MG TABLET PO SCH ×6 (02:46→22:02)
[2019-10-19] MEDS: PIPERACILLIN SODIUM/TAZOBACTAM 3.375 GM in NORMAL SALINE 100 ML IV SCH ×2 (05:22→15:06)
[2019-10-19] MEDS: HEPARIN SOD (PORCINE) 5,000 UNIT/ML 1 ML VIAL SUBCUT SCH ×3 (05:35→22:02)
[2019-10-19] MEDS: ASPIRIN 81 MG TABLET, ENT COATED PO SCH (09:21)
[2019-10-19] MEDS: FINASTERIDE 5 MG TABLET PO SCH (09:22)
[2019-10-19] MEDS: CARVEDILOL 6.25 MG TABLET PO SCH ×2 (09:22→22:05)
[2019-10-19] MEDS: NYSTATIN 500000 UNIT/5 ML UDCUP PO SCH ×4 (09:22→22:02)
[2019-10-19] MEDS: PANTOPRAZOLE SODIUM 40 MG TABLET.DR PO SCH (09:22)
[2019-10-19] MEDS: DIGOXIN 0.25 MG TABLET PO SCH (09:22)
[2019-10-19] MEDS: FAMOTIDINE INJ/PF 20 MG/2 ML SDV IV SCH ×2 (09:22→22:05)
[2019-10-19 10:17] LABS: ABSOLUTE EOSINOPHILS # (AUTO) 0.1 10^3/uL (0.0-0.6); ABSOLUTE LYMPHOCYTES (AUTO) 1.1 10^3/uL (0.5-4.7); ABSOLUTE MONOCYTES (AUTO) 0.5 10^3/uL (0.1-1.4); ABSOLUTE NEUT (AUTO) 3.7 10^3/uL (1.7-8.2); BASOPHILS % (AUTO) 0.7 % (0-2); EOSINOPHILS % (AUTO) 1.5 % (0-6); HEMOGLOBIN 12.5 g/dL (13.5-17.0); LYMPHOCYTES % (AUTO) 19.8 % (13-45); MEAN CORPUSCULAR HEMOGLOBIN 29.7 pg (27.0-33.4); MEAN CORPUSCULAR HGB CONC 32.8 g/dL (32.0-36.0); MEAN CORPUSCULAR VOLUME 91 fl (80-97); MONOCYTES % (AUTO) 8.7 % (3-13); PLATELET COUNT 144 10^3/uL (150-450); RED CELL DISTRIBUTION WIDTH 13.2 % (11.5-14.0); SEGMENTED NEUTROPHILS % (AUTO) 69.3 % (42-78); TOTAL CELLS COUNTED % (AUTO) 100 %; WHITE BLOOD COUNT 5.4 10^3/uL (4.0-10.5)
[2019-10-19 10:31] LABS: ANION GAP 9 (5-19); BLOOD UREA NITROGEN 11 mg/dL (7-20); CALCIUM 7.6 mg/dL (8.4-10.2); CARBON DIOXIDE 27 mmol/L (22-30); CHLORIDE 99 mmol/L (98-107); GLUCOSE 108 mg/dL (75-110)
--- NOTE | 2019-10-19 15:07 | PDOC PROGRESS REPORT ---
Subjective Subjective:: Per Admitting Physician: "HAYLEE JERNIGAN is a 74 year old male with history of atrial fibrillation on digoxin, hypertension, history of aspiration pneumonia, BPH, kidney stones, gastric with reflux disease, irritable bowel disease, gastric ulcer, arthritis, depression, history of neck surgery came to the emergency room with history of fall 2 weeks ago as per the patient he fell and busted his back.. Patient is also given the history of difficulty swallowing on and off for the last several months and losing weight. Denies any problems with aspiration." 10/15/2019 Patient seen by general surgery who stated patient does not need any debridement of the ulcer along his mid thoracic spine. He will need referral to wound care clinic. GI consulted, seems that incorrect physician was put in the consult that has been fixed today. Dr. Vera reportedly will perform EGD on the patient on Monday if his COVID is negative. COVID test pending. Patient has some mild pain at the ulcer on his back and states he has chronic dysphasia but denies ever having a balloon procedure for strictures. He states he has had upper endoscopy in the past. He cannot remember much of the results that were given to him. He has no other complaints. 10/16/2019 Blood cultures are now growing gram-negative rods in the back ulcer culture is growing GPC C. Patient continued on Zosyn. We will repeat blood cultures today. Patient has severe protein calorie malnutrition and is quite cachectic with diffuse muscle wasting on exam. I believe he is at risk for a GI malignancy given his red flag GI symptoms including progressive weight loss and difficulty swallowing. He also has an extensive history of reflux per patient. COVID testing is pending and if this is negative patient can have EGD on Monday. GI is consulted and following. Consulted physical and occupational therapy. 10/17/2019 Patient had MRI of his thoracic spine done today and it revealed 5.6 cm abscess which have called to inform the general surgeon about. The abscess does not appear to be causing any osteomyelitis as of yet. Patient has a negative COVID test but the result was put in incorrectly and it is not currently showing up under the current visit. The result can be viewed if you click all visits results in the laboratory tab. RN will be calling the lab to see if they can fix this incorrect entry. Patient was rather anxious to get his MRI this morning requesting a calming medicine and he was given 1 mg Ativan. GI put a note in the chart asking about the COVID test and RN will make sure that they are aware it is negative. Patient will likely need I&D of his thoracic spine abscess and EGD tomorrow as well if both can be done while he is in the OR. Blood culture on 10/13 grew Acinetobacter B. pansensitive growing in 1/2 bottles. Likely this is a contaminant the patient has been treated with IV antibiotics regardless, repeat blood cultures from yesterday are still pending. Patient has no new complaints other than pain in his back near the abscess. 10/18/2019 Cultures from wound growing bacteria, speciation and sensitivity not back yet. Long discussion with the patient and his son today about the plan going forward. Patient son states he cannot care for the patient at home and he would like him to go to SNF. PT/OT consulted. Patient went down for EGD today and reportedly has esophageal fungal infection. Start nystatin swish and swallow. Stacey esophagitis noted on EGD. Start Diflucan. Patient's back seems to be getting a bit better now that has had I&D. Antibiotics continue for this. PT/OT will need to give clear recommendations on SNF versus home health versus none. Patient has no new complaints today. 10/19/2019 Therapy continuing to evaluate patient for home health versus SNF placement. His back abscess cultures growing MSSA, more than adequately treated with antibiotics he has been getting here. I have de-escalated antibiotics by discontinuing Zosyn and starting the patient on amoxicillin 500 mg every 8 hours. We will give him 7 days starting on when he had the I&D from general surgery as this is when source control began. Diflucan and nystatin continue and patient already notes significant improvement on this regimen. Labs look good and vitals are stable. Patient has no new complaints today. Possible discharge tomorrow Monday. Patient and his son both want him to go to SNF if this is an option. Reason For Visit: DYSPHAGIA Physical Exam Vital Signs: Temp Pulse Resp BP Pulse Ox 98.1 F 61 16 126/74 H 98 10/19/19 11:36 10/19/19 11:36 10/19/19 11:36 10/19/19 11:36 10/18/19 23:34 Intake & Output 10/18/19 10/19/19 10/20/19 06:59 06:59 06:59 Intake Total 1560 2070 360 Output Total 900 480 Balance 660 1590 360 Weight 57.2 kg 65.3 kg Results Laboratory Results: 10/19/19 09:10 10/19/19 09:10 10/19/19 10/19/19 09:10 09:10 WBC 5.4 RBC 4.20 L Hgb 12.5 L Hct 38.0 MCV 91 MCH 29.7 MCHC 32.8 RDW 13.2 Plt Count 144 L Seg Neutrophils % 69.3 Sodium 134.7 L Potassium 4.0 Chloride 99 Carbon Dioxide 27 Anion Gap 9 BUN 11 Creatinine 0.64 Est GFR ( Amer) > 60 Glucose 108 Calcium 7.6 L 10/17/19 18:00 Back - Abscess Gram Stain - Final 10/17/19 18:00 Back - Abscess Wound Culture - Final Staphylococcus Aureus No Anaerobic Organisms 10/14/19 10/14/19 10/14/19 13:55 13:55 19:15 Creatine Kinase 26 L Troponin I < 0.012 < 0.012 NT-Pro-B Natriuret Pep 10/15/19 10/15/19 01:00 07:18 Creatine Kinase Troponin I < 0.012 < 0.012 NT-Pro-B Natriuret Pep 3170 H Impressions: Chest X-Ray 10/14/19 18:14 IMPRESSION: Cardiomegaly without pulmonary edema. Chronic lung changes. Thoracic Spine MRI 10/17/19 00:00 IMPRESSION: 4.1 x 1.5 x 5.6 cm subcutaneous abscess of the left paraspinous subcutaneous tissues ; this appears to decompress through the skin near the midline at the T10 level. The adjacent musculature and osseous structures are normal. Incidental note is made of a small right-sided pleural effusion. Assessment and Plan - Diagnosis (1) Dysphagia Qualifiers: Dysphagia type: unspecified Qualified Code(s): R13.10 - Dysphagia, unspecified Is this a current diagnosis for this admission?: Yes Plan: 10/14/2019-patient is going to be admitted to [facility] for dysphasia speech consult was requested patient is going to kept n.p.o. started on D5 normal saline at 50 cc/h. Dietary consult will be requested and a GI consult is requested. GI prophylaxis initiated on DVT prophylaxis initiated. 10/15/2019 Dysphasia specifically of solids, not liquids GI consulted, planning the EGD on Monday if COVID is negative COVID test pending Possible esophageal strictures, may need esophageal balloon 10/16/2019 COVID-19 testing pending, if negative get EGD on Monday GI following 10/18/2019 EGD performed 10/17 showing Stacey esophagitis, no masses/tumors/ulcers Antifungal treatment 10/19/2019 Dysphagia due to esophageal candidiasis, significant improvement after starting antifungals Continue Diflucan and nystatin (2) Chronic atrial fibrillation Is this a current diagnosis for this admission?: No (3) Stage II decubitus ulcer of the mid back Is this a current diagnosis for this admission?: Yes Plan: 10/14/2019-patient has a large decubitus ulcer in the mid thoracic region looks infected. As per the patient it started after he fell. Surgical consult was requested blood cultures are requested wound cultures are requested patient is started on IV Zosyn at this time. Requested for COVID test which is a send out. 10/15/2019 COVID test pending General surgery evaluated patient stated he is not in need of any immediate surgery including debridement Needs follow-up with wound care outpatient Blood cultures positive for gram-negative rods, follow-up finalized results Continue Zosyn 10/16/2019 Blood culture results not finalized yet Zosyn continues Repeat blood cultures today 10/19/2019 Ulcer was actually an abscess that underwent I&D by general surgery. MSSA growing from the wound culture. Treated with Zosyn initially, then changed to amoxicillin for a total 7-day course starting from when we had good source control on the day of his I&D. (4) Decubitus ulcer Is this a current diagnosis for this admission?: Yes (5) Hyponatremia Is this a current diagnosis for this admission?: Yes Plan: 10/14/2019-serum sodium is 129. Hyponatremia may be secondary to poor oral intake. Started on D5 normal saline drip 50 cc/h to repeat the labs tomorrow. 10/15/2019 Resolved (6) Hypotension Qualifiers: Hypotension type: unspecified hypotension type Qualified Code(s): I95.9 - Hypotension, unspecified Is this a current diagnosis for this admission?: Yes (7) Protein-energy malnutrition Qualifiers: Protein-calorie malnutrition severity: severe Qualified Code(s): E43 - Unspecified severe protein-calorie malnutrition Is this a current diagnosis for this admission?: Yes (10) Stacey esophagitis Is this a current diagnosis for this admission?: Yes Plan: Seen on EGD on 10/17 Nystatin swish and swallow Diflucan IV, may need up to 14 days total treatment - Time Time Spent with patient: 15-24 minutes Medications reviewed and adjusted accordingly: Yes Anticipated Discharge Disposition: Snf Facility Anticipated Discharge Timeframe: within 48 hours - Inpatient Certification Based on my medical assessment, after consideration of the patient's comorbidit ies, presenting symptoms, or acuity I expect that the services needed warrant INPATIENT care.: Yes I certify that my determination is in accordance with my understanding of [place]'s requirements for reasonable and necessary INPATIENT services [42 CFR 412.3e].: Yes Medical Necessity: Significant Comorbidiites Make Outpatient Treatment Too Risky, Need Close Monitoring Due to Risk of Patient Decompensation, Need for IV Antibiotics, Risk of Complication if Not Cared For in Hospital, Risk of Diagnosis Which Will Require Inpatient Eval/Care/Monitoring
[2019-10-19] MEDS: FLUCONAZOLE 400 MG/NS RTU 400 MG/200 ML RTUPB IV SCH (17:52)
[2019-10-19] MEDS: DEXTROSE 5%-NORMAL SALINE 1,000 ML IV PRN (19:07)
[2019-10-19] MEDS: AMOXICILLIN TRIHYDRATE 500 MG CAPSULE PO SCH (22:02)
[2019-10-20] MEDS: OXYCODONE HCL IR 5 MG TABLET PO SCH ×6 (01:52→21:09)
[2019-10-20] MEDS: HEPARIN SOD (PORCINE) 5,000 UNIT/ML 1 ML VIAL SUBCUT SCH ×3 (05:42→21:09)
[2019-10-20] MEDS: AMOXICILLIN TRIHYDRATE 500 MG CAPSULE PO SCH ×3 (05:42→21:09)
[2019-10-20] MEDS: FAMOTIDINE INJ/PF 20 MG/2 ML SDV IV SCH ×2 (11:26→21:09)
[2019-10-20] MEDS: ASPIRIN 81 MG TABLET, ENT COATED PO SCH (11:29)
[2019-10-20] MEDS: FINASTERIDE 5 MG TABLET PO SCH (11:29)
[2019-10-20] MEDS: NYSTATIN 500000 UNIT/5 ML UDCUP PO SCH ×4 (11:29→21:09)
[2019-10-20] MEDS: PANTOPRAZOLE SODIUM 40 MG TABLET.DR PO SCH (11:31)
[2019-10-20] MEDS: CARVEDILOL 6.25 MG TABLET PO SCH ×2 (11:53→22:31)
[2019-10-20] MEDS: DIGOXIN 0.25 MG TABLET PO SCH (11:56)
--- NOTE | 2019-10-20 14:37 | PDOC PROGRESS REPORT ---
Subjective Subjective:: Per Admitting Physician: "HAYLEE JERNIGAN is a 74 year old male with history of atrial fibrillation on digoxin, hypertension, history of aspiration pneumonia, BPH, kidney stones, gastric with reflux disease, irritable bowel disease, gastric ulcer, arthritis, depression, history of neck surgery came to the emergency room with history of fall 2 weeks ago as per the patient he fell and busted his back.. Patient is also given the history of difficulty swallowing on and off for the last several months and losing weight. Denies any problems with aspiration." 10/15/2019 Patient seen by general surgery who stated patient does not need any debridement of the ulcer along his mid thoracic spine. He will need referral to wound care clinic. GI consulted, seems that incorrect physician was put in the consult that has been fixed today. Dr. Vera reportedly will perform EGD on the patient on Monday if his COVID is negative. COVID test pending. Patient has some mild pain at the ulcer on his back and states he has chronic dysphasia but denies ever having a balloon procedure for strictures. He states he has had upper endoscopy in the past. He cannot remember much of the results that were given to him. He has no other complaints. 10/16/2019 Blood cultures are now growing gram-negative rods in the back ulcer culture is growing GPC C. Patient continued on Zosyn. We will repeat blood cultures today. Patient has severe protein calorie malnutrition and is quite cachectic with diffuse muscle wasting on exam. I believe he is at risk for a GI malignancy given his red flag GI symptoms including progressive weight loss and difficulty swallowing. He also has an extensive history of reflux per patient. COVID testing is pending and if this is negative patient can have EGD on Monday. GI is consulted and following. Consulted physical and occupational therapy. 10/17/2019 Patient had MRI of his thoracic spine done today and it revealed 5.6 cm abscess which have called to inform the general surgeon about. The abscess does not appear to be causing any osteomyelitis as of yet. Patient has a negative COVID test but the result was put in incorrectly and it is not currently showing up under the current visit. The result can be viewed if you click all visits results in the laboratory tab. RN will be calling the lab to see if they can fix this incorrect entry. Patient was rather anxious to get his MRI this morning requesting a calming medicine and he was given 1 mg Ativan. GI put a note in the chart asking about the COVID test and RN will make sure that they are aware it is negative. Patient will likely need I&D of his thoracic spine abscess and EGD tomorrow as well if both can be done while he is in the OR. Blood culture on 10/13 grew Acinetobacter B. pansensitive growing in 1/2 bottles. Likely this is a contaminant the patient has been treated with IV antibiotics regardless, repeat blood cultures from yesterday are still pending. Patient has no new complaints other than pain in his back near the abscess. 10/18/2019 Cultures from wound growing bacteria, speciation and sensitivity not back yet. Long discussion with the patient and his son today about the plan going forward. Patient son states he cannot care for the patient at home and he would like him to go to SNF. PT/OT consulted. Patient went down for EGD today and reportedly has esophageal fungal infection. Start nystatin swish and swallow. Stacey esophagitis noted on EGD. Start Diflucan. Patient's back seems to be getting a bit better now that has had I&D. Antibiotics continue for this. PT/OT will need to give clear recommendations on SNF versus home health versus none. Patient has no new complaints today. 10/19/2019 Therapy continuing to evaluate patient for home health versus SNF placement. His back abscess cultures growing MSSA, more than adequately treated with antibiotics he has been getting here. I have de-escalated antibiotics by discontinuing Zosyn and starting the patient on amoxicillin 500 mg every 8 hours. We will give him 7 days starting on when he had the I&D from general surgery as this is when source control began. Diflucan and nystatin continue and patient already notes significant improvement on this regimen. Labs look good and vitals are stable. Patient has no new complaints today. Possible discharge tomorrow Monday. Patient and his son both want him to go to SNF if this is an option. 10/20/2019 Patient is gradually regaining his ability to swallow and is eating more food. He did complain that his sausage was not properly ground up this morning and he had some difficulty swallowing it. He will need to take his Diflucan and nystatin for approximately 14 days total. He will need follow-up with GI and probably get another EGD in the near future. We are planning on sending him to rehab facility. He has no new complaints today. He has asymptomatic sinus b radycardia which only occurs intermittently and mostly when he is sleeping. There is no need to order any additional testing or treatment for this. Reason For Visit: DYSPHAGIA Physical Exam Vital Signs: Temp Pulse Resp BP Pulse Ox 97.6 F 70 16 131/78 H 96 10/20/19 12:27 10/20/19 12:27 10/20/19 12:27 10/20/19 12:27 10/20/19 05:06 Intake & Output 10/19/19 10/20/19 10/21/19 06:59 06:59 06:59 Intake Total 2070 2070 Output Total 480 200 Balance 1590 1870 Weight 65.3 kg 64.2 kg General appearance: PRESENT: no acute distress, well-developed, well-nourished Head exam: PRESENT: atraumatic, normocephalic Eye exam: PRESENT: conjunctiva pink Mouth exam: PRESENT: moist Respiratory exam: PRESENT: clear to auscultation maddy. ABSENT: rales, rhonchi, wheezes Cardiovascular exam: PRESENT: RRR. ABSENT: diastolic murmur, rubs, systolic murmur GI/Abdominal exam: PRESENT: normal bowel sounds, soft. ABSENT: distended, guarding, mass, organolmegaly, rebound, tenderness Neurological exam: PRESENT: alert, awake, oriented to person, oriented to place, oriented to time, oriented to situation Psychiatric exam: PRESENT: appropriate affect, normal mood Skin exam: PRESENT: dry, warm, other - Surgical wound on back healing and clean with some mild drainage under the bandages Results Laboratory Results: 10/19/19 09:10 10/19/19 09:10 10/14/19 19:15 Blood Blood Culture - Final NO GROWTH IN 5 DAYS 10/14/19 10/14/19 10/14/19 13:55 13:55 19:15 Creatine Kinase 26 L Troponin I < 0.012 < 0.012 NT-Pro-B Natriuret Pep 10/15/19 10/15/19 01:00 07:18 Creatine Kinase Troponin I < 0.012 < 0.012 NT-Pro-B Natriuret Pep 3170 H Impressions: Chest X-Ray 10/14/19 18:14 IMPRESSION: Cardiomegaly without pulmonary edema. Chronic lung changes. Thoracic Spine MRI 10/17/19 00:00 IMPRESSION: 4.1 x 1.5 x 5.6 cm subcutaneous abscess of the left paraspinous sub cutaneous tissues ; this appears to decompress through the skin near the midline at the T10 level. The adjacent musculature and osseous structures are normal. Incidental note is made of a small right-sided pleural effusion. Assessment and Plan - Diagnosis (1) Dysphagia Qualifiers: Dysphagia type: unspecified Qualified Code(s): R13.10 - Dysphagia, unspecified Is this a current diagnosis for this admission?: Yes Plan: 10/14/2019-patient is going to be admitted to [facility] for dysphasia speech consult was requested patient is going to kept n.p.o. started on D5 normal saline at 50 cc/h. Dietary consult will be requested and a GI consult is requested. GI prophylaxis initiated on DVT prophylaxis initiated. 10/15/2019 Dysphasia specifically of solids, not liquids GI consulted, planning the EGD on Monday if COVID is negative COVID test pending Possible esophageal strictures, may need esophageal balloon 10/16/2019 COVID-19 testing pending, if negative get EGD on Monday GI following 10/18/2019 EGD performed 10/17 showing Stacey esophagitis, no masses/tumors/ulcers Antifungal treatment 10/19/2019 Dysphagia due to esophageal candidiasis, significant improvement after starting antifungals Continue Diflucan and nystatin 10/20/2019 Diflucan and nystatin to continue for total 14 days, gradual improvement in swa llowing ability each day (2) Chronic atrial fibrillation Is this a current diagnosis for this admission?: No (3) Stage II decubitus ulcer of the mid back Is this a current diagnosis for this admission?: Yes Plan: 10/14/2019-patient has a large decubitus ulcer in the mid thoracic region looks infected. As per the patient it started after he fell. Surgical consult was requested blood cultures are requested wound cultures are requested patient is started on IV Zosyn at this time. Requested for COVID test which is a send out. 10/15/2019 COVID test pending General surgery evaluated patient stated he is not in need of any immediate surgery including debridement Needs follow-up with wound care outpatient Blood cultures positive for gram-negative rods, follow-up finalized results Continue Zosyn 10/16/2019 Blood culture results not finalized yet Zosyn continues Repeat blood cultures today 10/19/2019 Ulcer was actually an abscess that underwent I&D by general surgery. MSSA growing from the wound culture. Treated with Zosyn initially, then changed to amoxicillin for a total 7-day course starting from when we had good source control on the day of his I&D. 10/20/2019 Healing ulcer of back Antibiotics continue (4) Decubitus ulcer Is this a current diagnosis for this admission?: Yes (5) Hyponatremia Is this a current diagnosis for this admission?: Yes (6) Hypotension Qualifiers: Hypotension type: unspecified hypotension type Qualified Code(s): I95.9 - Hypotension, unspecified Is this a current diagnosis for this admission?: Yes (7) Protein-energy malnutrition Qualifiers: Protein-calorie malnutrition severity: severe Qualified Code(s): E43 - Unspecified severe protein-calorie malnutrition Is this a current diagnosis for this admission?: Yes (9) Stacey esophagitis Is this a current diagnosis for this admission?: Yes - Time Time Spent with patient: 15-24 minutes Medications reviewed and adjusted accordingly: Yes Anticipated Discharge Disposition: Care Home Facility Anticipated Discharge Timeframe: within 48 hours - Inpatient Certification Based on my medical assessment, after consideration of the patient's comorbidities, presenting symptoms, or acuity I expect that the services needed warrant INPATIENT care.: Yes I certify that my determination is in accordance with my understanding of Medicare's requirements for reasonable and necessary INPATIENT services [42 CFR 412.3e].: Yes Medical Necessity: Significant Comorbidiites Make Outpatient Treatment Too Risky, Need Close Monitoring Due to Risk of Patient Decompensation, Need for IV Antibiotics, Risk of Complication if Not Cared For in Hospital, Risk of Diagnosis Which Will Require Inpatient Eval/Care/Monitoring
[2019-10-20] MEDS: FLUCONAZOLE 400 MG/NS RTU 400 MG/200 ML RTUPB IV SCH (18:20)
[2019-10-20] MEDS: DEXTROSE 5%-NORMAL SALINE 1,000 ML IV PRN (21:08)
[2019-10-21] MEDS: OXYCODONE HCL IR 5 MG TABLET PO SCH ×4 (02:26→13:25)
[2019-10-21] MEDS: AMOXICILLIN TRIHYDRATE 500 MG CAPSULE PO SCH ×3 (06:19→21:42)
[2019-10-21] MEDS: HEPARIN SOD (PORCINE) 5,000 UNIT/ML 1 ML VIAL SUBCUT SCH ×3 (06:20→23:05)
[2019-10-21 09:42] LABS: ABSOLUTE EOSINOPHILS # (AUTO) 0.1 10^3/uL (0.0-0.6); ABSOLUTE LYMPHOCYTES (AUTO) 0.9 10^3/uL (0.5-4.7); ABSOLUTE MONOCYTES (AUTO) 0.4 10^3/uL (0.1-1.4); ABSOLUTE NEUT (AUTO) 2.7 10^3/uL (1.7-8.2); BASOPHILS % (AUTO) 0.7 % (0-2); EOSINOPHILS % (AUTO) 1.4 % (0-6); HEMATOCRIT 34.5 % (37.9-51.0); HEMOGLOBIN 11.5 g/dL (13.5-17.0); LYMPHOCYTES % (AUTO) 21.4 % (13-45); MEAN CORPUSCULAR HEMOGLOBIN 29.9 pg (27.0-33.4); MEAN CORPUSCULAR HGB CONC 33.2 g/dL (32.0-36.0); MEAN CORPUSCULAR VOLUME 90 fl (80-97); MONOCYTES % (AUTO) 10.8 % (3-13); PLATELET COUNT 129 10^3/uL (150-450); RED BLOOD COUNT 3.83 10^6/uL (4.35-5.55); RED CELL DISTRIBUTION WIDTH 13.6 % (11.5-14.0); SEGMENTED NEUTROPHILS % (AUTO) 65.7 % (42-78); TOTAL CELLS COUNTED % (AUTO) 100 %; WHITE BLOOD COUNT 4.1 10^3/uL (4.0-10.5)
[2019-10-21] MEDS: PANTOPRAZOLE SODIUM 40 MG TABLET.DR PO SCH (10:15)
[2019-10-21] MEDS: ASPIRIN 81 MG TABLET, ENT COATED PO SCH (10:15)
[2019-10-21] MEDS: FINASTERIDE 5 MG TABLET PO SCH (10:15)
[2019-10-21] MEDS: FAMOTIDINE INJ/PF 20 MG/2 ML SDV IV SCH ×2 (10:15→21:41)
[2019-10-21] MEDS: CARVEDILOL 6.25 MG TABLET PO SCH ×2 (10:15→21:42)
[2019-10-21] MEDS: NYSTATIN 500000 UNIT/5 ML UDCUP PO SCH ×4 (10:16→21:41)
[2019-10-21 10:19] LABS: BLOOD UREA NITROGEN 10 mg/dL (7-20); CALCIUM 8.1 mg/dL (8.4-10.2); GLUCOSE 73 mg/dL (75-110); POTASSIUM 3.7 mmol/L (3.6-5.0)
[2019-10-21 10:25] LABS: ANION GAP 6 (5-19); CARBON DIOXIDE 28 mmol/L (22-30); CHLORIDE 101 mmol/L (98-107)
[2019-10-21] MEDS: DEXTROSE 5%-NORMAL SALINE 1,000 ML IV PRN (10:25)
[2019-10-21] MEDS: DIGOXIN 0.25 MG TABLET PO SCH (11:43)
[2019-10-21] MEDS ORDERED: CARVEDILOL 6.25 MG TABLET PO ONE (12:00)
[2019-10-21] MEDS: LACTOBACILLUS ACIDOPHILUS 250 MG TAB PO SCH ×3 (13:25→21:41)
[2019-10-21] MEDS ORDERED: OXYCODONE HCL IR 5 MG TABLET PO PRN (15:04)
--- NOTE | 2019-10-21 15:27 | PDOC TRANSFER SUMMARY ---
Impression - Admit/DC Date/PCP Admission Date/Primary Care Provider: 10/14/19 17:48 RENATE DEL REAL MD Discharge Date: 10/21/19 - Discharge Diagnosis (1) Dysphagia Is this a current diagnosis for this admission?: Yes (2) Chronic atrial fibrillation Is this a current diagnosis for this admission?: No (3) Stage II decubitus ulcer of the mid back Is this a current diagnosis for this admission?: Yes (4) Decubitus ulcer Is this a current diagnosis for this admission?: Yes (5) Hyponatremia Is this a current diagnosis for this admission?: Yes (6) Hypotension Is this a current diagnosis for this admission?: Yes (7) Protein-energy malnutrition Is this a current diagnosis for this admission?: Yes (8) Chronic iron deficiency anemia Is this a current diagnosis for this admission?: Yes (9) Stacey esophagitis Is this a current diagnosis for this admission?: Yes - Additional Information Resuscitation Status: Full Code Discharge Diet: Cardiac Discharge Activity: Activity As Tolerated, Balance Activity w/Rest Referrals: RENATE DEL REAL MD [Primary Care Provider] - Follow up as needed Prescriptions: Oxycodone HCl [Oxy-Ir 5 mg Tablet] 10 mg PO Q6HP PRN #16 tablet PRN Reason: Home Medications: Carafate 1 gm Tablet 2 tab PO QID PRN 02/13/11 Digoxin [Lanoxin 0.25 mg Tablet] 0.25 mg PO DAILY 02/13/11 Potassium Chloride [Klor-Con 10 Meq Tablet ER] 8 meq PO BID 02/13/11 Testosterone Cypionate [Depo-Testosterone] 100 mg IM ASDIR PRN 10/03/12 Aspirin [Aspirin EC] 81 mg PO DAILY 01/27/14 Finasteride [Proscar 5 mg Tablet] 5 mg PO DAILY 08/07/18 Carvedilol [Coreg 6.25 mg Tablet] 6.25 mg PO ASDIR PRN 10/14/19 Pantoprazole Sodium [Protonix [address] Tablet] 40 mg PO QAM 10/14/19 Acetaminophen [Tylenol 325 mg Tablet] 650 mg PO Q4HP PRN tablet 10/21/19 Amoxicillin Trihydrate [Amoxil 500 mg Capsule] 500 mg PO Q8 6 Days capsule 10/21/19 Fluconazole [Diflucan 100 mg Tablet] 200 mg PO DAILY 10 Days tablet 10/21/19 Furosemide [Lasix 20 mg Tablet] 20 mg PO QAM #0 10/21/19 Lactobacillus Acidophilus [Bacid 250 mg Tablet] 250 mg PO QID tab 10/21/19 Nystatin [Mycostatin 500,000 Unit/5 ml Susp Udcup] 500,000 unit PO QID 10 Days udc 10/21/19 Oxycodone HCl [Oxy-Ir 5 mg Tablet] 10 mg PO Q6HP PRN #16 tablet 10/21/19 Spironolactone 25 mg PO TID #0 10/21/19 History of Present Illiness History of Present Illness: Per Admitting Physician: "HAYLEE JERNIGAN is a 74 year old male with history of atrial fibrillation on digoxin, hypertension, history of aspiration pneumonia, BPH, kidney stones, gastric with reflux disease, irritable bowel disease, gastric ulcer, arthritis, depression, history of neck surgery came to the emergency room with history of fall 2 weeks ago as per the patient he fell and busted his back.. Patient is also given the history of difficulty swallowing on and off for the last several months and losing weight. Denies any problems with aspiration." Hospital Course Hospital Course: Per Admitting Physician: "HAYLEE JERNIGAN is a 74 year old male with history of atrial fibrillation on digoxin, hypertension, history of aspiration pneumonia, BPH, kidney stones, gastric with reflux disease, irritable bowel disease, gastric ulcer, arthritis, depression, history of neck surgery came to the emergency room with history of fall 2 weeks ago as per the patient he fell and busted his back.. Patient is also given the history of difficulty swallowing on and off for the last several months and losing weight. Denies any problems with aspiration." 10/15/2019 Patient seen by general surgery who stated patient does not need any debridement of the ulcer along his mid thoracic spine. He will need referral to wound care clinic. GI consulted, seems that incorrect physician was put in the consult that has been fixed today. Dr. Vera reportedly will perform EGD on the patient on Monday if his COVID is negative. COVID test pending. Patient has some mild pain at the ulcer on his back and states he has chronic dysphasia but denies ever having a balloon procedure for strictures. He states he has had upper endoscopy in the past. He cannot remember much of the results that were given to him. He has no other complaints. 10/16/2019 Blood cultures are now growing gram-negative rods in the back ulcer culture is growing GPC C. Patient continued on Zosyn. We will repeat blood cultures today. Patient has severe protein calorie malnutrition and is quite cachectic with diffuse muscle wasting on exam. I believe he is at risk for a GI malignancy given his red flag GI symptoms including progressive weight loss and difficulty swallowing. He also has an extensive history of reflux per patient. COVID testing is pending and if this is negative patient can have EGD on Monday. GI is consulted and following. Consulted physical and occupational therapy. 10/17/2019 Patient had MRI of his thoracic spine done today and it revealed 5.6 cm abscess which have called to inform the general surgeon about. The abscess does not appear to be causing any osteomyelitis as of yet. Patient has a negative COVID test but the result was put in incorrectly and it is not currently showing up under the current visit. The result can be viewed if you click all visits results in the laboratory tab. RN will be calling the lab to see if they can fix this incorrect entry. Patient was rather anxious to get his MRI this morning requesting a calming medicine and he was given 1 mg Ativan. GI put a note in the chart asking about the COVID test and RN will make sure that they are aware it is negative. Patient will likely need I&D of his thoracic spine abscess and EGD tomorrow as well if both can be done while he is in the OR. Blood culture on 10/13 grew Acinetobacter B. pansensitive growing in 1/2 bottles. Likely this is a contaminant the patient has been treated with IV antibiotics regardless, repeat blood cultures from yesterday are still pending. Patient has no new complaints other than pain in his back near the abscess. 10/18/2019 Cultures from wound growing bacteria, speciation and sensitivity not back yet. Long discussion with the patient and his son today about the plan going forward. Patient son states he cannot care for the patient at home and he would like him to go to SNF. PT/OT consulted. Patient went down for EGD today and reportedly has esophageal fungal infection. Start nystatin swish and swallow. Stacey esophagitis noted on EGD. Start Diflucan. Patient's back seems to be getting a bit better now that has had I&D. Antibiotics continue for this. PT/OT will need to give clear recommendations on SNF versus home health versus none. Patient has no new complaints today. 10/19/2019 Therapy continuing to evaluate patient for home health versus SNF placement. His back abscess cultures growing MSSA, more than adequately treated with antibiotics he has been getting here. I have de-escalated antibiotics by discontinuing Zosyn and starting the patient on amoxicillin 500 mg every 8 hours. We will give him 7 days starting on when he had the I&D from general surgery as this is when source control began. Diflucan and nystatin continue and patient already notes significant improvement on this regimen. Labs look good and vitals are stable. Patient has no new complaints today. Possible discharge tomorrow Monday. Patient and his son both want him to go to SNF if this is an option. 10/20/2019 Patient is gradually regaining his ability to swallow and is eating more food. He did complain that his sausage was not properly ground up this morning and he had some difficulty swallowing it. He will need to take his Diflucan and nystatin for approximately 14 days total. He will need follow-up with GI and probably get another EGD in the near future. We are planning on sending him to rehab facility. He has no new complaints today. He has asymptomatic sinus bradycardia which only occurs intermittently and mostly when he is sleeping. There is no need to order any additional testing or treatment for this. Stable for discharge and patient is accepted in nursing facilities. Patient and family in agreement with plan to go to rehab. Patient will finish out 14-day course of nystatin and fluconazole for candidal esophagitis. Dysphagia is already significantly improved and he is tolerating a diet. Patient must follow-up with PCP and GI within the next 1 to 2 weeks. Patient also follow-up with the general surgeon who performed his I&D on the abscess on his back. He also complete a course of amoxicillin which is back abscess bacteria growing his culture is sensitive to, MSSA. (1) Dysphagia Qualifiers: Dysphagia type: unspecified Qualified Code(s): R13.10 - Dysphagia, unspecified Is this a current diagnosis for this admission?: Yes Plan: 10/14/2019-patient is going to be admitted to [facility] for dysphasia speech consult was requested patient is going to kept n.p.o. started on D5 normal saline at 50 cc/h. Dietary consult will be requested and a GI consult is requested. GI prophylaxis initiated on DVT prophylaxis initiated. 10/15/2019 Dysphasia specifically of solids, not liquids GI consulted, planning the EGD on Monday if COVID is negative COVID test pending Possible esophageal strictures, may need esophageal balloon 10/16/2019 COVID-19 testing pending, if negative get EGD on Monday GI following 10/18/2019 EGD performed 10/17 showing Stacey esophagitis, no masses/tumors/ulcers Antifungal treatment 10/19/2019 Dysphagia due to esophageal candidiasis, significant improvement after starting antifungals Continue Diflucan and nystatin 10/20/2019 Diflucan and nystatin to continue for total 14 days, gradual improvement in swallowing ability each day (2) Chronic atrial fibrillation Is this a current diagnosis for this admission?: No (3) Stage II decubitus ulcer of the mid back Is this a current diagnosis for this admission?: Yes Plan: 10/14/2019-patient has a large decubitus ulcer in the mid thoracic region looks infected. As per the patient it started after he fell. Surgical consult was requested blood cultures are requested wound cultures are requested patient is started on IV Zosyn at this time. NEGATIVE COVID test which was a send out. 10/15/2019 COVID test pending General surgery evaluated patient stated he is not in need of any immediate surgery including debridement Needs follow-up with wound care outpatient Blood cultures positive for gram-negative rods, follow-up finalized results Continue Zosyn 10/16/2019 Blood culture results not finalized yet Zosyn continues Repeat blood cultures today 10/19/2019 Per MRI T-Spine, Ulcer was actually an abscess that eventually underwent I&D by general surgery when I called them to inform them of the MRI results. MSSA growing from the wound culture. Treated with Zosyn initially, then changed to amoxicillin for a total 7-day course starting from when we had good source control on the day of his I&D. 10/20/2019 Healing ulcer of back Antibiotics continue to complete course PO outpt (4) Decubitus ulcer Is this a current diagnosis for this admission?: Yes (5) Hyponatremia Is this a current diagnosis for this admission?: Yes (6) Hypotension Qualifiers: Hypotension type: unspecified hypotension type Qualified Code(s): I95.9 - Hypotension, unspecified Is this a current diagnosis for this admission?: Yes (7) Protein-energy malnutrition Qualifiers: Protein-calorie malnutrition severity: severe Qualified Code(s): E43 - Unspecified severe protein-calorie malnutrition Is this a current diagnosis for this admission?: Yes (9) Stacey esophagitis Is this a current diagnosis for this admission?: Yes Physical Exam Vital Signs: Temp Pulse Resp BP Pulse Ox 98.9 F 64 18 120/80 99 10/21/19 12:00 10/21/19 12:00 10/21/19 12:00 10/21/19 12:00 10/21/19 12:00 Intake & Output 10/20/19 10/21/19 10/22/19 06:59 06:59 06:59 Intake Total 2070 2160 1496 Output Total 200 650 900 Balance 1870 1510 596 Weight 64.2 kg 65.8 kg General appearance: PRESENT: no acute distress, well-developed, well-nourished Head exam: PRESENT: atraumatic, normocephalic Eye exam: PRESENT: conjunctiva pink Mouth exam: PRESENT: moist Respiratory exam: PRESENT: clear to auscultation maddy. ABSENT: rales, rhonchi, wheezes Cardiovascular exam: PRESENT: RRR. ABSENT: diastolic murmur, rubs, systolic murmur GI/Abdominal exam: PRESENT: normal bowel sounds, soft. ABSENT: distended, guarding, mass, organolmegaly, rebound, tenderness Neurological exam: PRESENT: alert, awake, oriented to person, oriented to place, oriented to time, oriented to situation, CN II-XII grossly intact. ABSENT: motor sensory deficit Psychiatric exam: PRESENT: appropriate affect, normal mood Skin exam: PRESENT: dry, intact, warm, other - Healing surgical site on thoracic spine, improving with minimal drainage Results Laboratory Results: WBC 4.1 10^3/uL (4.0-10.5) 10/21/19 09:15 RBC 3.83 10^6/uL (4.35-5.55) L 10/21/19 09:15 Hgb 11.5 g/dL (13.5-17.0) L 10/21/19 09:15 Hct 34.5 % (37.9-51.0) L 10/21/19 09:15 MCV 90 fl (80-97) 10/21/19 09:15 MCH 29.9 pg (27.0-33.4) 10/21/19 09:15 MCHC 33.2 g/dL (32.0-36.0) 10/21/19 09:15 RDW 13.6 % (11.5-14.0) 10/21/19 09:15 Plt Count 129 10^3/uL (150-450) L 10/21/19 09:15 Lymph % (Auto) 21.4 % (13-45) 10/21/19 09:15 Schleicher % (Auto) 10.8 % (3-13) 10/21/19 09:15 Eos % (Auto) 1.4 % (0-6) 10/21/19 09:15 Baso % (Auto) 0.7 % (0-2) 10/21/19 09:15 Absolute Neuts (auto) 2.7 10^3/uL (1.7-8.2) 10/21/19 09:15 Absolute Lymphs (auto) 0.9 10^3/uL (0.5-4.7) 10/21/19 09:15 Absolute Monos (auto) 0.4 10^3/uL (0.1-1.4) 10/21/19 09:15 Absolute Eos (auto) 0.1 10^3/uL (0.0-0.6) 10/21/19 09:15 Absolute Basos (auto) 0.0 10^3/uL (0.0-0.2) 10/21/19 09:15 Seg Neutrophils % 65.7 % (42-78) 10/21/19 09:15 Sodium 134.6 mmol/L (137-145) L 10/21/19 09:15 Potassium 3.7 mmol/L (3.6-5.0) 10/21/19 09:15 Chloride 101 mmol/L (98-107) 10/21/19 09:15 Carbon Dioxide 28 mmol/L (22-30) 10/21/19 09:15 Anion Gap 6 (5-19) 10/21/19 09:15 BUN 10 mg/dL (7-20) 10/21/19 09:15 Creatinine 0.74 mg/dL (0.52-1.25) 10/21/19 09:15 Est GFR ( Amer) > 60 (>60) 10/21/19 09:15 Est GFR (MDRD) Non-Af > 60 (>60) 10/21/19 09:15 Glucose 73 mg/dL (75-110) L 10/21/19 09:15 Hemoglobin A1c % 5.4 % (4.7-6.0) 10/15/19 07:18 Calcium 8.1 mg/dL (8.4-10.2) L 10/21/19 09:15 Magnesium 2.2 mg/dL (1.6-2.3) 10/15/19 07:18 Total Bilirubin 0.9 mg/dL (0.2-1.3) 10/15/19 07:18 Direct Bilirubin 0.0 mg/dL (0.0-0.4) 10/15/19 07:18 Neonat Total Bilirubin Not Reportable 10/15/19 07:18 Neonat Direct Bilirubin Not Reportable 10/15/19 07:18 Neonat Indirect Bili Not Reportable 10/15/19 07:18 AST 19 U/L (17-59) 10/15/19 07:18 ALT 14 U/L (<50) 10/15/19 07:18 Alkaline Phosphatase 58 U/L (38-126) 10/15/19 07:18 Creatine Kinase 26 U/L (55-170) L 10/14/19 13:55 Troponin I < 0.012 ng/mL 10/15/19 07:18 NT-Pro-B Natriuret Pep 3170 pg/mL (<450) H 10/15/19 07:18 Total Protein 5.7 g/dL (6.3-8.2) L 10/15/19 07:18 Albumin 2.7 g/dL (3.5-5.0) L 10/15/19 07:18 Triglycerides 80 mg/dL (<150) 10/15/19 07:18 Cholesterol 71.85 mg/dL (0-200) 10/15/19 07:18 LDL Cholesterol Direct 38 mg/dL (<100) 10/15/19 07:18 VLDL Cholesterol 16.0 mg/dL (10-31) 10/15/19 07:18 HDL Cholesterol 24 mg/dL (>40) L 10/15/19 07:18 TSH 2.23 uIU/mL (0.47-4.68) 10/15/19 07:18 Urine Opiates Screen NEGATIVE 10/15/19 00:25 Urine Methadone Screen NEGATIVE 10/15/19 00:25 Ur Barbiturates Screen NEGATIVE 10/15/19 00:25 Ur Phencyclidine Scrn NEGATIVE 10/15/19 00:25 Ur Amphetamines Screen NEGATIVE 10/15/19 00:25 U Benzodiazepines Scrn NEGATIVE 10/15/19 00:25 Urine Cocaine Screen NEGATIVE 10/15/19 00:25 U Marijuana (THC) Screen NEGATIVE 10/15/19 00:25 10/14/19 10/14/19 10/15/19 13:55 19:15 01:00 Troponin I < 0.012 < 0.012 < 0.012 NT-Pro-B Natriuret Pep 10/15/19 07:18 Troponin I < 0.012 NT-Pro-B Natriuret Pep 3170 H Impressions: Chest X-Ray 10/14/19 18:14 IMPRESSION: Cardiomegaly without pulmonary edema. Chronic lung changes. Thoracic Spine MRI 10/17/19 00:00 IMPRESSION: 4.1 x 1.5 x 5.6 cm subcutaneous abscess of the left paraspinous subcutaneous tissues ; this appears to decompress through the skin near the midline at the T10 level. The adjacent musculature and osseous structures are normal. Incidental note is made of a small right-sided pleural effusion. Plan Plan of Treatment: Follow-up with PCP Follow-up with general surgery Follow-up with GI Complete antifungal course Complete antibiotic course Time Spent: Greater than 30 Minutes Stroke Is this a Stroke Patient?: No Acute Heart Failure - Is this a Heart Failure Patient?: Yes Documentation of LVEF assessment?: Yes LVEF: LVEF Less Than or Equal to 40% Anticoagulant Therapy: No, document contraindications Reason(s) not Discharged on Anticoagulant Therapy: Complications r/t anticoagu lant therapy (hx or current), Patient/Family refused, Risk for bleeding, Repeated falls/unsteady gait Discharged on Evidence-Based Beta Blockers: Yes Discharged on ARNI?: No-Document Contraindications Reason(s) not discharged on ARNI: ACEI use within the prior 36 hours Discharged on ARB?: No-document contraindications Reason(s) not Discharged on ARB: Hypotenson Discharged on ACEI?: No, document contraindications Reason(s) not Discharged on ACEI: Hypotension For LVEF <35%, discharged on Aldosterone Antagonist?: Yes Follow-up Appointment scheduled within 7 days?: Yes
[2019-10-21] MEDS: OXYCODONE HCL IR 5 MG TABLET PO PRN (16:03)
[2019-10-21] MEDS: ACETAMINOPHEN 325 MG TABLET PO PRN ×2 (18:16→22:20)
[2019-10-22 04:23] LABS: C DIFFICILE GDH NEGATIVE (NEGATIVE)
[2019-10-22] MEDS: AMOXICILLIN TRIHYDRATE 500 MG CAPSULE PO SCH ×2 (05:08→13:07)
[2019-10-22] MEDS: OXYCODONE HCL IR 5 MG TABLET PO PRN ×2 (05:08→11:00)
[2019-10-22] MEDS: HEPARIN SOD (PORCINE) 5,000 UNIT/ML 1 ML VIAL SUBCUT SCH ×2 (05:30→13:09)
[2019-10-22] MEDS: PANTOPRAZOLE SODIUM 40 MG TABLET.DR PO SCH (07:26)
[2019-10-22] MEDS ORDERED: FLUCONAZOLE 100 MG TABLET PO SCH (10:00)
[2019-10-22] MEDS: ASPIRIN 81 MG TABLET, ENT COATED PO SCH (10:04)
[2019-10-22] MEDS: LACTOBACILLUS ACIDOPHILUS 250 MG TAB PO SCH ×2 (10:04→13:07)
[2019-10-22] MEDS: NYSTATIN 500000 UNIT/5 ML UDCUP PO SCH ×2 (10:06→13:07)
[2019-10-22] MEDS: CARVEDILOL 6.25 MG TABLET PO SCH (10:06)
[2019-10-22] MEDS: FINASTERIDE 5 MG TABLET PO SCH (10:06)
[2019-10-22] MEDS: FAMOTIDINE INJ/PF 20 MG/2 ML SDV IV SCH (10:06)
[2019-10-22] MEDS: DIGOXIN 0.25 MG TABLET PO SCH (10:07)
--- NOTE | 2019-10-22 11:58 | Progress Note ---
Provider Note Provider Note: Patient seen and examined by me. No significant changes since yesterday. States he continues to feel better and is able to eat more more food each day. He is having less dysphasia each day as well. He is cleared to go to SNF and family and patient are in agreement with this plan. He will be discharged to SNF today.
[2019-10-22 12:21] VITALS: BP 121/62
--- NOTE | 2019-10-29 12:54 | Progress Note ---
Provider Note Provider Note: Permanent atrial fibrillation
== END 2019-10-22 14:00 | DRG 368 ==
LOC: ER 13:27 → EH 17:48 → 4N 21:52
PROVIDERS: ADMIT Internal Medicine; ATTEND Internal Medicine
PROC: 0J973ZX Drainage of Back Subcutaneous Tissue and Fascia, Percutaneous Approach, Diagnostic (ICD-10-PCS; 2019-10-17)
PROC: 0DD78ZX Extraction of Stomach, Pylorus, Via Natural or Artificial Opening Endoscopic, Diagnostic (ICD-10-PCS; 2019-10-18)
PROC: 0DD58ZX Extraction of Esophagus, Via Natural or Artificial Opening Endoscopic, Diagnostic (ICD-10-PCS; principal; 2019-10-18 11:30)
DX: B37.81 Candidal esophagitis (principal); E43 Unspecified severe protein-calorie malnutrition; I48.20 Chronic atrial fibrillation, unspecified; E87.1 Hypo-osmolality and hyponatremia; Z68.1 Body mass index [BMI] 19.9 or less, adult; I48.21 Permanent atrial fibrillation; R13.10 Dysphagia, unspecified; L89.102 Pressure ulcer of unspecified part of back, stage 2; I95.9 Hypotension, unspecified; D50.9 Iron deficiency anemia, unspecified; N40.0 Benign prostatic hyperplasia without lower urinary tract symptoms; K21.9 Gastro-esophageal reflux disease without esophagitis; R00.1 Bradycardia, unspecified; F32.9 Major depressive disorder, single episode, unspecified; K58.9 Irritable bowel syndrome, unspecified; B95.61 Methicillin susceptible Staphylococcus aureus infection as the cause of diseases classified elsewhere; Z79.899 Other long term (current) drug therapy; Z91.81 History of falling; Z87.891 Personal history of nicotine dependence; Z88.6 Allergy status to analgesic agent; Z88.8 Allergy status to other drugs, medicaments and biological substances; Z87.11 Personal history of peptic ulcer disease
CPT/HCPCS: 00731; 36415; 43235; 43239; 71045; 72157; 80048; 80053; 80061; 80307; 82550; 83036; 83735; 83880; 84443; 84484; 85025; 87040; 87070; 87075; 87077; 87150; 87186; 87205; 87324; 87449; 88305; 88342; 93005; 93010; 99285; A9576; J1450; J1644; J2060; J2543; J2704; J3490; J7042; J7050; S0028

== ENCOUNTER 2019-10-31 10:03 | Outpatient (CLI) | payer MEDICARE, OTHER ==
[~2019-10-31 10:03] MED LIST changes: -FERUMOXYTOL (ESRD) 510 MG/NS 100 ML IV PRN; -FERUMOXYTOL (NON-ESRD) 510 MG/NS 100 ML IV PRN; +FERUMOXYTOL 510 MG in NORMAL SALINE 100 ML IV PRN
[2019-10-31 10:17] VITALS: BP 115/65
== END 2019-10-31 11:09 ==
LOC: II 10:03 → 5TH 10:07 → II 11:09
PROVIDERS: ATTEND Internal Medicine
DX: D50.0 Iron deficiency anemia secondary to blood loss (chronic) (principal); N18.3 Chronic kidney disease, stage 3 (moderate)
CPT/HCPCS: 96365; Q0138; J7050

== ENCOUNTER 2019-11-07 10:06 | Outpatient (CLI) | payer MEDICARE, OTHER ==
[2019-11-07 10:49] VITALS: BP 101/73
== END 2019-11-07 11:15 ==
LOC: II 10:06 → 5TH 10:12 → II 11:15
PROVIDERS: ATTEND Internal Medicine
DX: D50.0 Iron deficiency anemia secondary to blood loss (chronic) (principal); N18.3 Chronic kidney disease, stage 3 (moderate)
CPT/HCPCS: 96365; Q0138; J7050

== ENCOUNTER 2019-11-09 21:10 | Inpatient (IN) | payer MEDICARE ==
--- NOTE | 2019-11-09 22:25 | ER Document Report ---
ED General - General Chief Complaint: General Weakness Stated Complaint: DECREASED MENTAL STATUS Time Seen by Provider: 11/09/19 21:55 Primary Care Provider: JESSICA JACKSON MD [Primary Care Provider] - Follow up as needed TRAVEL OUTSIDE OF THE [place] IN LAST 30 DAYS: No - HPI Onset: Yesterday Quality of pain: No pain Context: This is a 74-year-old male with a history of iron deficiency anemia, atrial fibrillation, decubitus ulcers, hyponatremia, and dysphasia that presents from [facility] for evaluation of generalized weakness and decline x1 day. Patient reportedly has a history of UTIs and was started on Rocephin. However the patient has a depressed altered mental status according to the EMS run sheet and he is not been eating or drinking. Furthermore the initial SPO2 was 72% on 3 L at the scene. Patient's initial blood glucose was reported to be 136 and blood pressure 100/87 with a pulse of 98. Patient is a poor historian history is somewhat limited much of the history is coming from the medical record. Patient's was apparently discharged to [facility] on 10/22/2019 after admission for dysphasia, chronic A. fib, stage II decubitus culture on the mid back, hyponatremia, hypertension, protein calorie energy malnutrition and chronic iron deficiency anemia. When asked with the patient is not feeling well he says yes but is not able to elaborate further than that. He is not able to give any information in terms of alleviating or exacerbating factors either and is not able to state exactly in what manner he does not feel well. Patient denies pain specifically. Patient cannot tolerate NSAIDs or aspirin due to a history of bleeding ulcers. Associated symptoms: Other - See HPI Exacerbated by: Other Relieved by: Other - See HPI see HPI - Related Data Allergies/Adverse Reactions: aspirin [Aspirin] Allergy (Mild, Verified 10/12/19 15:29) BLEEDING ULCERS meperidine HCl [From Demerol] Allergy (Unknown, Verified 10/12/19 15:29) NSAIDS (Non-Steroidal Anti-Inflamma [Nsaids] Allergy (Unknown, Verified 10/12/19 15:29) ULCERS IN STOMACH pentazocine lactate [From Talwin] Allergy (Unknown, Verified 10/12/19 15:29) promethazine HCl [From Phenergan] Allergy (Unknown, Verified 10/12/19 15:29) Past Medical History - General Information source: Patient, Emergency Med Personnel, Outside Facility Records - Social History Smoking Status: Unknown if Ever Smoked Family History: Reviewed & Not Pertinent - Past Medical History Cardiac Medical History: Reports: Hx Atrial Fibrillation, Hx Hypertension Denies: Hx Coronary Artery Disease, Hx Heart Attack Pulmonary Medical History: Reports: Hx Pneumonia - ASPIRATION PNEUMONIA Denies: Hx Asthma, Hx Bronchitis, Hx COPD, Hx Tuberculosis Neurological Medical History: Denies: Hx Cerebrovascular Accident, Hx Seizures Renal/ Medical History: Reports: Hx Benign Prostatic Hyperplasia, Hx Kidney Stones GI Medical History: Reports: Hx Gastroesophageal Reflux Disease, Hx Irritable Bowel, Hx Ulcer. Denies: Hx Hepatitis, Hx Hiatal Hernia Musculoskeletal Medical History: Reports Hx Arthritis Psychiatric Medical History: Reports: Hx Depression Traumatic Medical History: Reports: Hx Fractures Infectious Medical History: Denies: Hx Hepatitis Past Surgical History: Reports: Hx Orthopedic Surgery - neck surgery. Denies: Hx Open Heart Surgery, Hx Pacemaker - Immunizations Hx Diphtheria, Pertussis, Tetanus Vaccination: Yes Review of Systems - Review of Systems -: Yes ROS unobtainable due to patient's medical condition Physical Exam - Vital signs Vitals: Temp Pulse Resp BP Pulse Ox 97.8 F 80 15 122/95 H 100 11/09/19 21:21 11/09/19 21:21 11/09/19 21:21 11/09/19 21:21 11/09/19 21:21 - Notes Notes: CONSTITUTIONAL Patient is awake and oriented to person. Patient appears to be in no acute distress patient has a very frail appearance in an extremely thin body habitus. HEAD [Atraumatic, Normocephalic.] EYES [Eyes are normal to inspection, No discharge from eyes, Extraocular muscles intact, Sclera are normal, Conjunctiva are normal.] ENT Dry mucous membranes] NECK [Normal ROM, No jugular venous distention, No meningeal signs, no carotid bruit.] RESPIRATORY CHEST [Chest is nontender, Breath sounds normal, No respiratory distress.] CARDIOVASCULAR [Irregularly irregular rhythm no murmurs, Normal S1 S2, No rub, No gallop.] ABDOMEN [Abdomen is nontender, No pulsatile masses, No other masses, Bowel sounds normal, No distension, No peritoneal signs, No hernias.] BACK [There is no CVA Tenderness, There is no tenderness to palpation, there is a stage II decubitus ulcer present in the patient's mid thoracic region. Patient is very kyphotic. Patient does not appear to have any evidence of a sacral decubitus ulcer at this time.] UPPER EXTREMITY [Inspection normal, patient's thumbs appear to have a cyanotic appearance, No edema, 2+ radial pulses.] LOWER EXTREMITY Patient's lower extremities are extremely thin. There are no obvious deformities. Patient has chronic changes in skin color in both of his lower extremities consistent with chronic venous stasis dermatitis there is no edema.] NEURO [Patient seems to be generally weak but does not seem to have any focal neuro deficits.] SKIN [Skin exam is significant for chronic changes noted on lower extremity exam, clubbing on findings, and midthoracic decubitus ulcer..] LYMPHATIC [No adenopathy in neck.] PSYCHIATRIC [Depressed affect. ] Course - Re-evaluation Re-evalutation: 11/09/19 22:30 1 differential diagnosis, UTI, dehydration, anemia, ACS, CVA, electrolyte abnormality, malnutrition. - Vital Signs Vital signs: Temp Pulse Resp BP Pulse Ox 97.9 F 80 20 125/85 99 11/10/19 04:01 11/09/19 21:21 11/10/19 04:30 11/10/19 04:30 11/10/19 04:30 - Laboratory Result Diagrams: 11/10/19 00:36 11/10/19 00:36 Laboratory results interpreted by me: 11/09/19 11/10/19 11/10/19 22:54 00:36 00:36 WBC 12.2 H RBC 5.81 H Hgb 17.4 H Hct 51.3 H RDW 14.9 H Absolute Neuts (auto) 9.6 H Seg Neutrophils % 78.9 H VBG pCO2 VBG HCO3 Sodium 128.7 L Potassium 7.8 H* Chloride 91 L BUN 109 H Creatinine 2.01 H Est GFR ( Amer) 39 L Est GFR (MDRD) Non-Af 32 L Glucose 134 H Lactic Acid 4.1 H Magnesium 2.9 H Direct Bilirubin 0.6 H Urine Protein Urine Ascorbic Acid Digoxin 3.10 H* 11/10/19 11/10/19 01:00 01:05 WBC RBC Hgb Hct RDW Absolute Neuts (auto) Seg Neutrophils % VBG pCO2 33.0 L VBG HCO3 18.2 L Sodium Potassium Chloride BUN Creatinine Est GFR ( Amer) Est GFR (MDRD) Non-Af Glucose Lactic Acid Magnesium Direct Bilirubin Urine Protein 30 H Urine Ascorbic Acid 40 H Digoxin - EKG Interpretation by Me Additional EKG results interpreted by me: 11/09/19 22:18 EKG obtained on 11/09/2019 at 2146 hrs. was interpreted by this MD. Findings: Atrial fibrillation, rate control, rate 81, moderate baseline artifact is pres ent, there is no discernible ID interval, QRS complex appears narrow, QTC is 349, patient has nonspecific T wave inversions in V2 through V6, there are no obvious patterns of ST elevation or depression to suggest acute myocardial ischemia or infarction. This EKG is compared to the EKG from 10/14/2019 which also showed rate controlled A. fib. However today's EKG appears change in terms of the T wave inversion and V2 through V6. Impression atrial fibrillation, rate controlled with T wave inversions in V2 through V6 which appear new compared to EKG from 10/14/2019. - Consults dr. arias Time consulted: 01:40 Reason for consultation: 11/10/19 01:55 hyperkalemia, lactic acidosis Consulted provider: will come to ER Critical Care Note - Critical Care Note Total time excluding time spent on procedures (mins): 120 Discharge - Discharge Clinical Impression: Hyperkalemia, Dehydration, Lactic acidosis, Renal insufficiency, Hyponatremia Condition: Fair Disposition: ADMITTED INPATIENT Admitting Provider: Jean Carlos (Hospitalist) Unit Admitted: IMCU Referrals: JESSICA JACKSON MD [Primary Care Provider] - Follow up as needed
[2019-11-09] MEDS ORDERED: NORMAL SALINE 1000 ML 1,000 ML IV ONE (22:35)
--- NOTE | 2019-11-09 23:46 | RADIOLOGY REPORT (SQ) ---
CLINICAL INDICATION: Low O2 sat. TECHNIQUE: A single portable AP view was obtained of the chest at 2325 hours. COMPARISON: October 14, 2019. FINDINGS: The cardiomediastinal silhouette is normal. The lungs are grossly clear. No evidence of effusion or pneumothorax. Chronic parenchymal lung change. Old postsurgical change cervical spine. IMPRESSION: No evidence of active intrathoracic disease. Chronic change, no adverse change
--- NOTE | 2019-11-10 00:14 | RADIOLOGY REPORT (SQ) ---
INDICATION: Altered mental status. COMPARISON: None CORRELATION: None TECHNIQUE: Noncontrast spiral axial CT images were obtained from the skull base to vertex. This exam was performed according to our departmental dose-optimization program, which includes automated exposure control, adjustment of the mA and/or kV according to patient size and/or use of iterative reconstruction techniques. FINDINGS: There is no evidence of acute intracranial hemorrhage, midline shift, mass effect or mass lesion. Boucher-white differentiation is normal. There is no evidence of acute large territory infarct. Ventricles and extracerebral spaces are within normal limits, for age. The visualized paranasal sinuses are grossly clear. The orbits and eyeballs are unremarkable. The mastoid air cells are clear. Skull base and calvarium appear intact. Osteoarthritis upper cervical spine IMPRESSION: No acute intracranial process is identified. The cause of the patient's mental status change is not identified on this examination.
[2019-11-10 00:46] LABS: ABSOLUTE MONOCYTES (AUTO) 0.6 10^3/uL (0.1-1.4); ABSOLUTE NEUT (AUTO) 9.6 10^3/uL (1.7-8.2); BASOPHILS % (AUTO) 0.3 % (0-2); HEMATOCRIT 51.3 % (37.9-51.0); HEMOGLOBIN 17.4 g/dL (13.5-17.0); LYMPHOCYTES % (AUTO) 16.2 % (13-45); MEAN CORPUSCULAR HEMOGLOBIN 29.9 pg (27.0-33.4); MEAN CORPUSCULAR HGB CONC 33.9 g/dL (32.0-36.0); MEAN CORPUSCULAR VOLUME 88 fl (80-97); MONOCYTES % (AUTO) 4.6 % (3-13); PLATELET COUNT 224 10^3/uL (150-450); RED BLOOD COUNT 5.81 10^6/uL (4.35-5.55); RED CELL DISTRIBUTION WIDTH 14.9 % (11.5-14.0); SEGMENTED NEUTROPHILS % (AUTO) 78.9 % (42-78); TOTAL CELLS COUNTED % (AUTO) 100 %; WHITE BLOOD COUNT 12.2 10^3/uL (4.0-10.5)
[2019-11-10 01:14] LABS: APPEARANCE,URINE SLIGHTLY-CLOUDY; BILIRUBIN,URINE NEGATIVE (NEGATIVE); COLOR,URINE YELLOW; GLUCOSE, URINE NEGATIVE (NEGATIVE); KETONES,URINE NEGATIVE (NEGATIVE); LEUKOCYTE ESTERASE,URINE NEGATIVE (NEGATIVE); NITRITE,URINE NEGATIVE (NEGATIVE); PROTEIN,URINE 30 mg/dL (NEGATIVE); URINE SPECIFIC GRAVITY 1.017; UROBILINOGEN,URINE NEGATIVE mg/dL (<2.0)
[2019-11-10 01:25] LABS: ANION GAP 14 (5-19); BLOOD UREA NITROGEN 109 mg/dL (7-20); CALCIUM 9.8 mg/dL (8.4-10.2); CARBON DIOXIDE 24 mmol/L (22-30); CHLORIDE 91 mmol/L (98-107); GLUCOSE 134 mg/dL (75-110)
[2019-11-10 01:26] LABS: ALBUMIN 4.1 g/dL (3.5-5.0); ALKALINE PHOSPHATASE 117 U/L (38-126); ASPARTATE AMINO TRANSFERASE 25 U/L (17-59); BILIRUBIN,DIRECT 0.6 mg/dL (0.0-0.4); BILIRUBIN,TOTAL 0.9 mg/dL (0.2-1.3); TOTAL PROTEIN 7.5 g/dL (6.3-8.2)
[2019-11-10 01:28] LABS: POTASSIUM 7.8 mmol/L (3.6-5.0)
[2019-11-10] MEDS ORDERED: DEXTROSE 50%-WATER 25 GM/50 ML DISP.SYRIN IV ONE (01:40)
[2019-11-10] MEDS ORDERED: SODIUM BICARBONATE 8.4% INJ 50 MEQ/50 ML DISP.SYRIN IV ONE (01:41)
[2019-11-10] MEDS ORDERED: SODIUM POLYSTYRENE SULFONATE 15 GM/60 ML PR ONE (01:41)
[2019-11-10] MEDS ORDERED: INSULIN REG, HUMAN 100 UNIT/ML 3 ML VIAL (PYX) IV ONE (01:41)
[2019-11-10] MEDS ORDERED: NORMAL SALINE 1000 ML 1,000 ML IV ONE ×4 (01:44→11:46)
[2019-11-10 04:44] LABS: VENOUS BLOOD HCO3 18.2 mmol/L (20-32); VENOUS BLOOD PH 7.36 (7.30-7.42)
[2019-11-10] MEDS ORDERED: ACETAMINOPHEN 650 MG SUPP.RECT PR PRN (05:39)
[2019-11-10] MEDS ORDERED: ACETAMINOPHEN 325 MG TABLET PO PRN (05:39)
[2019-11-10] MEDS ORDERED: HEPARIN SOD (PORCINE) 5,000 UNIT/ML 1 ML VIAL SUBCUT SCH (06:00)
[2019-11-10] MEDS ORDERED: COLLAGENASE CLOSTRIDIUM HIST. OINT 30 GM TP PRN (06:01)
[2019-11-10] MEDS ORDERED: MAG HYDROX/AL HYDROX/SIMETH SUSP 30 ML UDCUP PO PRN (06:04)
[2019-11-10] MEDS ORDERED: MAGNESIUM HYDROXIDE SUSP 30 ML UDCUP PO PRN (06:04)
--- NOTE | 2019-11-10 06:37 | PDOC H&P ---
History of Present Illness Admission Date/PCP: JESSICA JACKSON MD Patient complains of: Sent from [facility] for hyperkalemia with acute kidney injury and severe dehydration causing altered mental status History of Present Illness: HAYLEE JERNIGAN is a 74 year old male who was unable to provide any history. The patient was discharged to [facility] in September (10/22/2019) and returns today with severe metabolic derangement. He is acutely encephalopathic from the metabolic changes. Laboratory studies reveal a potassium of 7.8, sodium of 128, BUN of 109 and a serum creatinine of 2.01. The patient is normally anemic and his hemoglobin is 17.4 from hemoconcentration. Past Medical History Cardiac Medical History: Reports: Atrial Fibrillation, Hypertension Denies: Coronary Artery Disease, Myocardial Infarction Pulmonary Medical History: Reports: Pneumonia - ASPIRATION PNEUMONIA Denies: Asthma, Bronchitis, Chronic Obstructive Pulmonary Disease (COPD), Tuberculosis Neurological Medical History: Denies: Seizures GI Medical History: Reports: Gastroesophageal Reflux Disease, Other - Stacey esophagitis Denies: Hepatitis, Hiatal Hernia Musculoskeltal Medical History: Reports: Arthritis Skin Medical History: Reports: Other - Decubitus ulcers Psychiatric Medical History: Reports: Depression Hematology: Reports: Anemia Denies: Sickle Cell Disease Past Surgical History Past Surgical History: Reports: Orthopedic Surgery - neck surgery Denies: Pacemaker Social History Smoking Status: Unknown if Ever Smoked Frequency of Alcohol Use: None Hx Recreational Drug Use: No Hx Prescription Drug Abuse: No - Advance Directive Resuscitation Status: Full Code Surrogate healthcare decision maker:: Per the documentation accompanying the patient from [facility] Family History Family History: Hypertension Family History: Obtain from September history and physical Parental Family History Reviewed: Yes Children Family History Reviewed: Yes Sibling(s) Family History Reviewed.: Yes Medication/Allergy Home Medications: Carafate 1 gm Tablet 2 tab PO QID PRN 02/13/11 Digoxin [Lanoxin 0.25 mg Tablet] 0.25 mg PO DAILY 02/13/11 Potassium Chloride [Klor-Con 10 Meq Tablet ER] 8 meq PO BID 02/13/11 Testosterone Cypionate [Depo-Testosterone] 100 mg IM ASDIR PRN 10/03/12 Aspirin [Aspirin EC] 81 mg PO DAILY 01/27/14 Finasteride [Proscar 5 mg Tablet] 5 mg PO DAILY 08/07/18 Carvedilol [Coreg 6.25 mg Tablet] 6.25 mg PO ASDIR PRN 10/14/19 Pantoprazole Sodium [Protonix [address] Tablet] 40 mg PO QAM 10/14/19 Acetaminophen [Tylenol 325 mg Tablet] 650 mg PO Q4HP PRN tablet 10/21/19 Amoxicillin Trihydrate [Amoxil 500 mg Capsule] 500 mg PO Q8 6 Days capsule 10/21/19 Fluconazole [Diflucan 100 mg Tablet] 200 mg PO DAILY 10 Days tablet 10/21/19 Furosemide [Lasix 20 mg Tablet] 20 mg PO QAM #0 10/21/19 Lactobacillus Acidophilus [Bacid 250 mg Tablet] 250 mg PO QID tab 10/21/19 Nystatin [Mycostatin 500,000 Unit/5 ml Susp Udcup] 500,000 unit PO QID 10 Days udc 10/21/19 Oxycodone HCl [Oxy-Ir 5 mg Tablet] 10 mg PO Q6HP PRN #16 tablet 10/21/19 Spironolactone 25 mg PO TID #0 10/21/19 Allergies/Adverse Reactions: aspirin [Aspirin] Allergy (Mild, Verified 10/12/19 15:29) BLEEDING ULCERS meperidine HCl [From Demerol] Allergy (Unknown, Verified 10/12/19 15:29) NSAIDS (Non-Steroidal Anti-Inflamma [Nsaids] Allergy (Unknown, Verified 10/12/19 15:29) ULCERS IN STOMACH pentazocine lactate [From Talwin] Allergy (Unknown, Verified 10/12/19 15:29) promethazine HCl [From Phenergan] Allergy (Unknown, Verified 10/12/19 15:29) Review of Systems ROS unobtainable: Due to mental status Physical Exam Vital Signs: Temp Pulse Resp BP Pulse Ox 97.9 F 80 20 125/85 99 11/10/19 04:01 11/09/19 21:21 11/10/19 04:30 11/10/19 04:30 11/10/19 04:30 Intake & Output 11/08/19 11/09/19 11/10/19 06:59 06:59 06:59 Weight 49.1 kg General appearance: PRESENT: other - Patient unresponsive to verbal stimulus. Staring at the wall. Was unable to participate in the exam hence a limited exam.. ABSENT: cooperative Head exam: PRESENT: atraumatic, other - Temporal wasting Eye exam: PRESENT: conjunctiva pink. ABSENT: scleral icterus Ear exam: PRESENT: normal external ear exam. ABSENT: bleeding, drainage Mouth exam: PRESENT: other - Unable to assess Neck exam: ABSENT: carotid bruit, JVD, lymphadenopathy Respiratory exam: PRESENT: clear to auscultation maddy, symmetrical, unlabored. ABSENT: accessory muscle use, prolonged expiratory phas, rales, rhonchi, tachypnea, wheezes Cardiovascular exam: PRESENT: irregular rhythm. ABSENT: bradycardia, diastolic murmur, systolic murmur Pulses: PRESENT: other - Difficult to palpate dorsalis pedis pulses GI/Abdominal exam: PRESENT: normal bowel sounds, soft. ABSENT: distended, tenderness Rectal exam: PRESENT: deferred Extremities exam: PRESENT: other - Both feet cool to the touch. Dusky discoloration. Right more so than left.. ABSENT: pedal edema Musculoskeletal exam: PRESENT: other - Marked muscle wasting. ABSENT: ambulatory Neurological exam: PRESENT: alert, awake, other - Awake with eyes open staring at the wall. No interaction. Psychiatric exam: PRESENT: flat affect. ABSENT: agitated, anxious Focused psych exam: PRESENT: catatonic Skin exam: PRESENT: other - As noted above both feet exhibited cool skin with dusky discoloration and difficult to palpate dorsalis pedis pulses. Results Laboratory Results: 11/10/19 00:36 11/10/19 00:36 11/09/19 11/10/19 11/10/19 22:54 00:36 00:36 WBC 12.2 H RBC 5.81 H Hgb 17.4 H Hct 51.3 H MCV 88 MCH 29.9 MCHC 33.9 RDW 14.9 H Plt Count 224 Seg Neutrophils % 78.9 H VBG pH VBG pCO2 VBG HCO3 VBG Base Excess Sodium 128.7 L Potassium 7.8 H* Chloride 91 L Carbon Dioxide 24 Anion Gap 14 BUN 109 H Creatinine 2.01 H Est GFR ( Amer) 39 L Glucose 134 H Lactic Acid 4.1 H Calcium 9.8 Magnesium 2.9 H Total Bilirubin 0.9 AST 25 Alkaline Phosphatase 117 Total Protein 7.5 Albumin 4.1 Urine Color Urine Appearance Urine pH Ur Specific Hancock Urine Protein Urine Glucose (UA) Urine Ketones Urine Blood Urine Nitrite Ur Leukocyte Esterase Urine WBC (Auto) Urine RBC (Auto) Blood Type Antibody Screen 11/10/19 11/10/19 11/10/19 01:00 01:05 01:39 WBC RBC Hgb Hct MCV MCH MCHC RDW Plt Count Seg Neutrophils % VBG pH 7.36 VBG pCO2 33.0 L VBG HCO3 18.2 L VBG Base Excess -6.0 Sodium Potassium Chloride Carbon Dioxide Anion Gap BUN Creatinine Est GFR ( Amer) Glucose Lactic Acid Calcium Magnesium Total Bilirubin AST Alkaline Phosphatase Total Protein Albumin Urine Color YELLOW Urine Appearance SLIGHTLY-CLOUDY Urine pH 5.0 Ur Specific Hancock 1.017 Urine Protein 30 H Urine Glucose (UA) NEGATIVE Urine Ketones NEGATIVE Urine Blood NEGATIVE Urine Nitrite NEGATIVE Ur Leukocyte Esterase NEGATIVE Urine WBC (Auto) 2 Urine RBC (Auto) 30 Blood Type B POSITIVE Antibody Screen NEGATIVE 11/10/19 00:36 Troponin I 0.081 Impressions: Chest X-Ray 11/09/19 22:31 IMPRESSION: No evidence of active intrathoracic disease. Chronic change, no adverse change Head CT 11/09/19 22:31 IMPRESSION: No acute intracranial process is identified. The cause of the patient's mental status change is not identified on this examination. Assessment and Plan - Diagnosis (1) Acute kidney injury (SHAKEEL) with acute tubular necrosis (ATN) Is this a current diagnosis for this admission?: Yes Plan: The patient's serum creatinine increased from 1.47-2.01 over the course of 3 days. At the time of discharge from the hospital in September his creatinine was 0.78. In the BUN on discharge from the hospital October 20 was 10. On November 05 it was 51 and on November 08 it was 109. The patient was on furosemide and Spironolactone but I believe these were held based on the laboratory reports from November 05 at [facility]. The patient will need aggressive rehydration. Will monitor renal function with serial blood tests. (2) Hyperkalemia Is this a current diagnosis for this admission?: Yes Plan: The patient's potassium on November 05 was 6.0. On admission it was 7.8. The patient was given IV insulin and dextrose as well as rectal Kayexalate. Repeat laboratory studies are ordered for 8:00 this morning. Will monitor on telemetry as well. (3) Dehydration Is this a current diagnosis for this admission?: Yes Plan: Rise in BUN is outlined above. It is hard to know his total oral intake over the last several days. Aggressive rehydration as noted above. After he received a bolus of saline in the emergency department I have ordered saline at 167 mL an hour to give 4 L of fluid per day. He is also on strict monitoring of intake and output. (4) Digoxin toxicity Qualifiers: Encounter type: initial encounter Is this a current diagnosis for this admission?: Yes Plan: Because of the acute change in renal function the patient's digoxin level nohemy to 3.1. We are holding his digoxin dosing and will recheck it as he is hydrated. (5) Hyponatremia Is this a current diagnosis for this admission?: Yes Plan: The patient was hyponatremic during his September hospitalization. At one point his sodium was down to 128. At discharge it was 134. Laboratory studies drawn November 05 at [facility] showed a sodium of 136. We will hydrate the patient initially. The patient may require hypertonic saline. It is likely that we can improve his serum sodium with normal saline and correction of the other abnormalities. (6) Lactic acidosis Is this a current diagnosis for this admission?: Yes Plan: Lactic acid was 4.1 on admission. Repeat lactic acid is ordered for 8:00 this morning after the patient has received fluids. (7) Chronic atrial fibrillation Is this a current diagnosis for this admission?: Yes Plan: We will continue carvedilol but hold digoxin due to digoxin toxicity. Will monitor on telemetry (8) Stage II decubitus ulcer of the mid back Is this a current diagnosis for this admission?: Yes Plan: Did not assess the wound during this encounter. It appears that the patient was getting dressing changes with Santyl. These are likely done daily. Will need further investigation but dressing changes should continue. In addition, we will continue vitamin C and zinc for wound healing (9) Polycythemia due to fall in plasma volume Is this a current diagnosis for this admission?: Yes Plan: During the September admission the patient was found to be chronically anemic. Hemoglobin is typically random in the 11 range. Hemoglobin is significantly increased today. This is likely due to hemoconcentration. We will continue to monitor as the patient gets rehydrated. - Time Time Spent with patient: 35 or more minutes Medications reviewed and adjusted accordingly: Yes Anticipated Discharge Disposition: [facility] Facility Anticipated Discharge Timeframe: 6 to 7 days - Inpatient Certification Based on my medical assessment, after consideration of the patient's comorbidities, presenting symptoms, or acuity I expect that the services needed warrant INPATIENT care.: Yes I certify that my determination is in accordance with my understanding of Medicare's requirements for reasonable and necessary INPATIENT services [42 CFR 412.3e].: Yes Medical Necessity: Significant Comorbidiites Make Outpatient Treatment Too Ri alex, Need Close Monitoring Due to Risk of Patient Decompensation, Need For IV Fluids, Need For Continuous Telemetry Monitoring, Need for Pain Control, Risk of Complication if Not Cared For in Hospital Post Hospital Care: D/C or Transfer Summary
[2019-11-10 08:48] LABS: ALBUMIN 4.1 g/dL (3.5-5.0); ANION GAP 13 (5-19); BLOOD UREA NITROGEN 106 mg/dL (7-20); CALCIUM 9.7 mg/dL (8.4-10.2); CARBON DIOXIDE 28 mmol/L (22-30); CHLORIDE 92 mmol/L (98-107); GLUCOSE 161 mg/dL (75-110)
[2019-11-10 09:34] LABS: POTASSIUM 6.1 mmol/L (3.6-5.0)
[2019-11-10] MEDS ORDERED: CARVEDILOL 6.25 MG TABLET PO SCH (10:00)
[2019-11-10] MEDS: SUCRALFATE 1 GM TABLET PO SCH ×4 (11:09→21:46)
[2019-11-10] MEDS: CALCIUM GLUC IN NACL, ISO-OSM 1 GM/50 ML RTUPB IV SCH ×2 (11:38→12:36)
[2019-11-10] MEDS: FLUTICASONE NASAL SPRAY 50 MCG/SPRY 120 SPRAY/16 GM NASL SCH (11:46)
[2019-11-10] MEDS: ASCORBIC ACID 500 MG TABLET PO SCH (11:46)
[2019-11-10] MEDS: FINASTERIDE 5 MG TABLET PO SCH (11:46)
[2019-11-10] MEDS: HEPARIN SOD (PORCINE) 5,000 UNIT/ML 1 ML VIAL SUBCUT SCH ×2 (15:18→21:47)
[2019-11-10 16:42] LABS: HEMATOCRIT 32.3 % (37.9-51.0); MEAN CORPUSCULAR HEMOGLOBIN 30.3 pg (27.0-33.4); MEAN CORPUSCULAR HGB CONC 34.1 g/dL (32.0-36.0); MEAN CORPUSCULAR VOLUME 89 fl (80-97); PLATELET COUNT 111 10^3/uL (150-450); RED BLOOD COUNT 3.63 10^6/uL (4.35-5.55); RED CELL DISTRIBUTION WIDTH 14.6 % (11.5-14.0); WHITE BLOOD COUNT 6.6 10^3/uL (4.0-10.5)
[2019-11-10] MEDS: NORMAL SALINE 1000 ML 1,000 ML IV PRN ×2 (17:29→21:50)
--- NOTE | 2019-11-10 17:40 | ADVANCED CARE ---
Attendance: Randall Delacruz, son ([phone]) Resuscitation Status: Full Code Discussion: Discussed code status and goals of care at length with patient's son, . Randall Delacruz. Randall is rather aghast at and distraught by his father's cachectic appearance and states that his father lost over 30 pounds in the last few weeks while staying at [facility]. Randall is understandably flabbergasted by what he feels is a very rapid change in his fathers physical wellbeing and is not yet ready to consider changing his code status. He requested additional time to think about his options and to discuss further with family, which is absolutely appropriate. I warned Randall that Mr. Delacruz is severely malnourished, is in acute kidney failure, and has multiple very severe electrolyte derangements. His recovery from this will be long and arduous, and even refeeding will be dangerous due to risk of refeeding syndrome. He seems to appreciate the precarious situation that his father is in at this time. We will re-address code status and goals of care again tomorrow after he has had some time to think. Time Spent: >30 minutes
[2019-11-10 20:03] LABS: ALKALINE PHOSPHATASE 85 U/L (38-126); ANION GAP 7 (5-19); ASPARTATE AMINO TRANSFERASE 19 U/L (17-59); BILIRUBIN,DIRECT 0.5 mg/dL (0.0-0.4); BILIRUBIN,TOTAL 0.7 mg/dL (0.2-1.3); CALCIUM 8.7 mg/dL (8.4-10.2); CARBON DIOXIDE 24 mmol/L (22-30); CHLORIDE 105 mmol/L (98-107); CREATINE KINASE 39 U/L (55-170); GLUCOSE 95 mg/dL (75-110)
[2019-11-10 20:23] LABS: BLOOD UREA NITROGEN 80 mg/dL (7-20); POTASSIUM 4.4 mmol/L (3.6-5.0)
[2019-11-10] MEDS ORDERED: ASPIRIN 81 MG TABLET, ENT COATED PO SCH (22:00)
[2019-11-11] MEDS: NORMAL SALINE 1000 ML 1,000 ML IV PRN ×3 (02:00→09:53)
--- NOTE | 2019-11-11 02:46 | EKG REPORT ---
SEVERITY:- ABNORMAL ECG - ATRIAL FIBRILLATION, V-RATE 64-100 LEFT ANTERIOR FASCICULAR BLOCK REPOL ABNRM SUGGESTS ISCHEMIA, DIFFUSE LEADS : Confirmed by: Perez Mora MD 11-Nov-2019 02:46:35
[2019-11-11] MEDS: HEPARIN SOD (PORCINE) 5,000 UNIT/ML 1 ML VIAL SUBCUT SCH (05:19)
[2019-11-11] MEDS: PANTOPRAZOLE SODIUM 40 MG TABLET.DR PO SCH (05:19)
[2019-11-11] MEDS ORDERED: DEXTROSE 50%-WATER 25 GM/50 ML DISP.SYRIN IV PRN ×2 (05:55)
[2019-11-11] MEDS ORDERED: GLUCAGON,HUMAN RECOMB 1 MG INJ SUBCUT PRN (05:55)
[2019-11-11] MEDS ORDERED: DEXTROSE 40% GEL 15 GM TUBE PO PRN ×2 (05:55)
[2019-11-11 07:52] LABS: ABSOLUTE LYMPHOCYTES (AUTO) 0.9 10^3/uL (0.5-4.7); ABSOLUTE MONOCYTES (AUTO) 0.4 10^3/uL (0.1-1.4); ABSOLUTE NEUT (AUTO) 4.3 10^3/uL (1.7-8.2); BASOPHILS % (AUTO) 0.1 % (0-2); EOSINOPHILS % (AUTO) 0.1 % (0-6); HEMATOCRIT 39.2 % (37.9-51.0); LYMPHOCYTES % (AUTO) 15.4 % (13-45); MEAN CORPUSCULAR HEMOGLOBIN 29.6 pg (27.0-33.4); MEAN CORPUSCULAR HGB CONC 33.4 g/dL (32.0-36.0); MEAN CORPUSCULAR VOLUME 89 fl (80-97); MONOCYTES % (AUTO) 7.1 % (3-13); PLATELET COUNT 109 10^3/uL (150-450); RED BLOOD COUNT 4.41 10^6/uL (4.35-5.55); RED CELL DISTRIBUTION WIDTH 14.8 % (11.5-14.0); SEGMENTED NEUTROPHILS % (AUTO) 77.3 % (42-78); TOTAL CELLS COUNTED % (AUTO) 100 %; WHITE BLOOD COUNT 5.6 10^3/uL (4.0-10.5)
[2019-11-11 07:58] LABS: HEMOGLOBIN 13.1 g/dL (13.5-17.0)
[2019-11-11 08:14] LABS: ALBUMIN 2.6 g/dL (3.5-5.0); ANION GAP 5 (5-19); CALCIUM 8.3 mg/dL (8.4-10.2); CARBON DIOXIDE 22 mmol/L (22-30); CHLORIDE 110 mmol/L (98-107); DIGOXIN 1.56 ng/mL (0.8-2.0); GLUCOSE 94 mg/dL (75-110); PHOSPHORUS 2.9 mg/dL (2.5-4.5); POTASSIUM 3.8 mmol/L (3.6-5.0)
[2019-11-11 08:50] LABS: BLOOD UREA NITROGEN 58 mg/dL (7-20)
[2019-11-11] MEDS: SUCRALFATE 1 GM TABLET PO SCH ×4 (09:56→21:45)
[2019-11-11] MEDS: FLUTICASONE NASAL SPRAY 50 MCG/SPRY 120 SPRAY/16 GM NASL SCH (09:56)
[2019-11-11] MEDS: FINASTERIDE 5 MG TABLET PO SCH (09:57)
[2019-11-11] MEDS: ASCORBIC ACID 500 MG TABLET PO SCH (09:57)
[2019-11-11] MEDS ORDERED: POTASSI CL 40 MEQ/NS 1L 1,000 ML IV PRN (10:47)
[2019-11-11] MEDS ORDERED: METOPROLOL TARTRATE 25 MG TABLET PO SCH (11:00)
[2019-11-11] MEDS ORDERED: DIGOXIN 0.125 MG TABLET PO SCH (11:00)
[2019-11-11] MEDS ORDERED: HALOPERIDOL LACTATE INJ 5 MG/1 ML VIAL IV PRN (11:34)
--- NOTE | 2019-11-11 11:40 | ADVANCED CARE ---
Attendance: Randall Delacruz, son ([phone]) Resuscitation Status: Comfort Measures Only Discussion: Had an extensive discussion with patient's son, Randall Delacruz, about patient's dementia, delirium, failure to thrive, malnourished state and multiple chronic medical conditions. He is bed-bound with multiple decubitus ulcers. He is cachectic, unable/unwilling to eat/drink. His mental status has not improved with improvement in his renal function and electrolyte abnormalities, as we had hoped. His son has decided to change code status to DNR/DNI and pursue COMFORT CARE MEASURES only. Family is interested in transfer to inpatient hospice for ongoing management of patient's pain/agitation. Time Spent: >30 minutes
[2019-11-11] MEDS: MORPHINE SULFATE 10 MG/ML INJ IV PRN ×3 (12:56→20:38)
--- NOTE | 2019-11-11 15:54 | PDOC PROGRESS REPORT ---
Subjective Progress Note for:: 11/11/19 Subjective:: He is very sleepy today, difficult to wake up. Unable to hold a conversation. ROS not obtained due to AMS. Reason For Visit: HYPERKALEMIA, SERVERE DEHYDRATION, ACUTE KIDNEY Physical Exam Vital Signs: Temp Pulse Resp BP Pulse Ox 97.6 F 83 12 123/82 100 11/11/19 11:21 11/11/19 11:21 11/11/19 11:21 11/11/19 11:21 11/11/19 11:21 Pulse Oximeter Continuous Start: 11/10/19 12:02 Freq: RTQ4 Status: Complete Protocol: Document 11/11/19 14:04 [facility] (Rec: 11/11/19 14:05 [facility] [email or web address]) Pulse Oximetry Assessment Equipment Usage Equipment Discontinued Continuous SpO2 Machine # 5 Intake & Output 11/10/19 11/11/19 11/12/19 06:59 06:59 06:59 Intake Total 4963 Output Total 2024 Balance 2938 Weight 49.1 kg 43.3 kg General appearance: PRESENT: mild distress - agitated due to pain, thin - cachectic Mouth exam: PRESENT: dry mucosa Neck exam: ABSENT: JVD Respiratory exam: PRESENT: clear to auscultation maddy Cardiovascular exam: PRESENT: tachycardia GI/Abdominal exam: PRESENT: hypoactive bowel sounds, soft. ABSENT: tenderness Rectal exam: PRESENT: deferred Gentrourinary exam: PRESENT: indwelling catheter Extremities exam: ABSENT: pedal edema Neurological exam: PRESENT: altered, other - somnolent Psychiatric exam: PRESENT: agitated Focused psych exam: PRESENT: restlessness Skin exam: PRESENT: dry, other - multiple chronic decubitus ulcers on spine and sacrum Results Laboratory Results: 11/11/19 07:13 11/11/19 07:13 11/10/19 11/10/19 11/10/19 16:30 16:30 16:30 WBC 6.6 RBC 3.63 L Hgb 11.0 L D Hct 32.3 L MCV 89 MCH 30.3 MCHC 34.1 RDW 14.6 H Plt Count 111 L Seg Neutrophils % Sodium Cancelled Potassium Cancelled Chloride Cancelled Carbon Dioxide Cancelled Anion Gap Cancelled BUN Cancelled Creatinine Cancelled Est GFR ( Amer) Cancelled Est GFR (Non-Af Amer) Cancelled Glucose Cancelled Lactic Acid 0.8 Calcium Cancelled Phosphorus Cancelled Magnesium Cancelled Total Bilirubin Cancelled AST Cancelled Alkaline Phosphatase Cancelled Total Protein Cancelled Albumin Cancelled 11/10/19 11/10/19 11/11/19 18:14 19:35 07:13 WBC 5.6 RBC 4.41 Hgb 13.1 L D Hct 39.2 MCV 89 MCH 29.6 MCHC 33.4 RDW 14.8 H Plt Count 109 L Seg Neutrophils % 77.3 Sodium Cancelled 136.0 L Potassium Cancelled 4.4 D Chloride Cancelled 105 Carbon Dioxide Cancelled 24 Anion Gap Cancelled 7 BUN Cancelled 80 H D Creatinine Cancelled 1.24 Est GFR ( Amer) Cancelled > 60 Est GFR (Non-Af Amer) Cancelled Glucose Cancelled 95 Lactic Acid Calcium Cancelled 8.7 Phosphorus Cancelled 4.0 D Magnesium Cancelled 2.3 Total Bilirubin Cancelled 0.7 AST Cancelled 19 Alkaline Phosphatase Cancelled 85 Total Protein Cancelled 6.0 L Albumin Cancelled 3.0 L 11/11/19 07:13 WBC RBC Hgb Hct MCV MCH MCHC RDW Plt Count Seg Neutrophils % Sodium 136.9 L Potassium 3.8 Chloride 110 H Carbon Dioxide 22 Anion Gap 5 BUN 58 H D Creatinine 0.83 Est GFR ( Amer) > 60 Est GFR (Non-Af Amer) Glucose 94 Lactic Acid Calcium 8.3 L Phosphorus 2.9 Magnesium 2.2 Total Bilirubin AST Alkaline Phosphatase Total Protein Albumin 2.6 L 11/10/19 11/10/19 11/10/19 00:36 16:30 16:30 Creatine Kinase Cancelled Troponin I 0.081 Cancelled 11/10/19 11/10/19 11/10/19 18:14 18:14 19:35 Creatine Kinase Cancelled 39 L Troponin I 0.080 Impressions: Chest X-Ray 11/09/19 22:31 IMPRESSION: No evidence of active intrathoracic disease. Chronic change, no adverse change Head CT 11/09/19 22:31 IMPRESSION: No acute intracranial process is identified. The cause of the patient's mental status change is not identified on this examination. Assessment and Plan - Diagnosis (1) Acute kidney injury (SHAKEEL) with acute tubular necrosis (ATN) Is this a current diagnosis for this admission?: Yes (2) Dehydration Is this a current diagnosis for this admission?: Yes (3) Digoxin toxicity Qualifiers: Encounter type: initial encounter Is this a current diagnosis for this admission?: Yes (4) Hyperkalemia Is this a current diagnosis for this admission?: Yes (5) Hyponatremia Is this a current diagnosis for this admission?: Yes (6) Lactic acidosis Is this a current diagnosis for this admission?: Yes (7) Polycythemia due to fall in plasma volume Is this a current diagnosis for this admission?: Yes (8) Chronic atrial fibrillation Is this a current diagnosis for this admission?: Yes (9) Chronic iron deficiency anemia Is this a current diagnosis for this admission?: Yes (10) Decubitus ulcer Is this a current diagnosis for this admission?: Yes (11) Dysphagia Qualifiers: Dysphagia type: unspecified Qualified Code(s): R13.10 - Dysphagia, unspecified Is this a current diagnosis for this admission?: Yes (12) Hypotension Qualifiers: Hypotension type: unspecified hypotension type Qualified Code(s): I95.9 - Hypotension, unspecified Is this a current diagnosis for this admission?: Yes (13) Protein-energy malnutrition Qualifiers: Protein-calorie malnutrition severity: severe Qualified Code(s): E43 - Unspecified severe protein-calorie malnutrition Is this a current diagnosis for this admission?: Yes (14) Stage II decubitus ulcer of the mid back Is this a current diagnosis for this admission?: Yes - Plan Summary Summary: MR. HAYLEE JERNIGAN is a 74 year old male who was recently discharged to [facility] on 10/22/2019 and returned on 11/10/2019 with AMS, FTT, dehydrat ion and multiple severe metabolic derangements. Laboratory studies revealed a potassium of 7.8, sodium of 128, BUN of 109 and a serum creatinine of 2.01. He is cachectic with multiple decubitus ulcers of the spine/sacrum. He was admitted to the hospitalist service for telemetry, and IVF rehydration. Diamond catheter was placed for strict I/O. His kidney function and electrolyte abnormalities improved with IVF hydration. Unfortunately, he has remained somnolent, delirious and agitated. He has dysphagia, likely due to AMS at this point. He is bed- bound, clearly in pain and suffering. His family has decided to pursue comfort measures, which is appropriate given his age, frailty, debility and multiple chronic medical conditions. He can have pleasure feeds as tolerated. Code status changed to DNR/DNI. SW consulted for referral to inpatient hospice for ongoing management of delirium, agitation and pain. - Time Time Spent with patient: 35 or more minutes Anticipated Discharge Disposition: Hospice Center Anticipated Discharge Timeframe: within 48 hours
[2019-11-11] MEDS: LORAZEPAM INJ 2 MG/1 ML VIAL IV PRN (16:00)
[2019-11-11] MEDS: COLLAGENASE CLOSTRIDIUM HIST. OINT 30 GM TP SCH (17:40)
[2019-11-12] MEDS: MORPHINE SULFATE 10 MG/ML INJ IV PRN ×5 (02:40→22:52)
[2019-11-12] MEDS: LORAZEPAM INJ 2 MG/1 ML VIAL IV PRN ×2 (02:40→19:40)
[2019-11-12] MEDS: PANTOPRAZOLE SODIUM 40 MG TABLET.DR PO SCH (06:56)
[2019-11-12] MEDS: SUCRALFATE 1 GM TABLET PO SCH ×4 (07:36→21:59)
[2019-11-12] MEDS: FLUTICASONE NASAL SPRAY 50 MCG/SPRY 120 SPRAY/16 GM NASL SCH (09:07)
[2019-11-12] MEDS: FINASTERIDE 5 MG TABLET PO SCH (09:07)
[2019-11-12] MEDS ORDERED: ASPIRIN 81 MG TABLET, ENT COATED PO SCH (10:00)
[2019-11-12] MEDS: COLLAGENASE CLOSTRIDIUM HIST. OINT 30 GM TP SCH (11:03)
--- NOTE | 2019-11-12 18:02 | PDOC PROGRESS REPORT ---
Subjective Progress Note for:: 11/12/19 Subjective:: He is exhibiting agonal breathing today. Very somnolent, not conversive or interactive. Does not open eyes to voice any more. Reason For Visit: HYPERKALEMIA, SERVERE DEHYDRATION, ACUTE KIDNEY Physical Exam Vital Signs: Temp Pulse Resp BP Pulse Ox 97 F L 107 H 12 118/86 H 92 11/12/19 09:40 11/12/19 08:00 11/12/19 08:00 11/12/19 08:00 11/12/19 08:00 Pulse Oximeter Continuous Start: 11/10/19 12:02 Freq: RTQ4 Status: Complete Protocol: Document 11/11/19 14:04 [facility] (Rec: 11/11/19 14:05 [facility] [email or web address]) Pulse Oximetry Assessment Equipment Usage Equipment Discontinued Continuous SpO2 Machine # 5 Intake & Output 11/11/19 11/12/19 11/13/19 06:59 06:59 06:59 Intake Total 4963 0 Output Total 2024 1030 Balance 2938 -1030 Weight 43.3 kg 43.3 kg General appearance: PRESENT: no acute distress, thin Mouth exam: PRESENT: dry mucosa Respiratory exam: PRESENT: clear to auscultation maddy Cardiovascular exam: PRESENT: tachycardia Neurological exam: PRESENT: altered Results Laboratory Results: 11/11/19 07:13 11/11/19 07:13 11/10/19 01:00 Catheterized Urine Urine Culture - Final NO GROWTH 2 DAYS 11/10/19 11/10/19 11/10/19 00:36 16:30 16:30 Creatine Kinase Cancelled Troponin I 0.081 Cancelled 11/10/19 11/10/19 11/10/19 18:14 18:14 19:35 Creatine Kinase Cancelled 39 L Troponin I 0.080 Impressions: Chest X-Ray 11/09/19 22:31 IMPRESSION: No evidence of active intrathoracic disease. Chronic change, no adverse change Head CT 11/09/19 22:31 IMPRESSION: No acute intracranial process is identified. The cause of the patient's mental status change is not identified on this examination. Assessment and Plan - Diagnosis (1) Acute kidney injury (SHAKEEL) with acute tubular necrosis (ATN) Is this a current diagnosis for this admission?: Yes (2) Dehydration Is this a current diagnosis for this admission?: Yes (3) Digoxin toxicity Qualifiers: Encounter type: initial encounter Is this a current diagnosis for this admission?: Yes (4) Hyperkalemia Is this a current diagnosis for this admission?: Yes (5) Hyponatremia Is this a current diagnosis for this admission?: Yes (6) Lactic acidosis Is this a current diagnosis for this admission?: Yes (7) Polycythemia due to fall in plasma volume Is this a current diagnosis for this admission?: Yes (8) Chronic atrial fibrillation Is this a current diagnosis for this admission?: Yes (9) Chronic iron deficiency anemia Is this a current diagnosis for this admission?: Yes (10) Decubitus ulcer Is this a current diagnosis for this admission?: Yes (11) Dysphagia Qualifiers: Dysphagia type: unspecified Qualified Code(s): R13.10 - Dysphagia, unspecified Is this a current diagnosis for this admission?: Yes (12) Hypotension Qualifiers: Hypotension type: unspecified hypotension type Qualified Code(s): I95.9 - Hypotension, unspecified Is this a current diagnosis for this admission?: Yes (13) Protein-energy malnutrition Qualifiers: Protein-calorie malnutrition severity: severe Qualified Code(s): E43 - Unspecified severe protein-calorie malnutrition Is this a current diagnosis for this admission?: Yes (14) Stage II decubitus ulcer of the mid back Is this a current diagnosis for this admission?: Yes - Plan Summary Summary: MR. HAYLEE JERNIGAN is a 74 year old male who was recently discharged to [facility] on 10/22/2019 and returned on 11/10/2019 with AMS, FTT, dehydrati on and multiple severe metabolic derangements. Laboratory studies revealed a potassium of 7.8, sodium of 128, BUN of 109 and a serum creatinine of 2.01. He is cachectic with multiple decubitus ulcers of the spine/sacrum. He was admitted to the hospitalist service for telemetry and IVF rehydration. Diamond catheter was placed for strict I/O. His kidney function and electrolyte abnormalities improved with IVF hydration. Unfortunately, he remained somnolent, delirious and agitated. His family decided to pursue comfort measures, which is appropriate given his age, frailty, debility and multiple chronic medical conditions. Today, he is much more somnolent and is exhibiting agonal breathing. I do not believe he can be transferred to a hospice facility at this point. We are utilizing morphine, ativan and haldol as needed to keep him comfortable. Family is at bedside. - Time Time Spent with patient: 35 or more minutes Anticipated Discharge Disposition: Hospice Center Anticipated Discharge Timeframe: within 24 hours
[2019-11-13] MEDS: MORPHINE SULFATE 10 MG/ML INJ IV PRN ×6 (04:19→21:29)
[2019-11-13] MEDS: PANTOPRAZOLE SODIUM 40 MG TABLET.DR PO SCH (05:20)
[2019-11-13] MEDS: SUCRALFATE 1 GM TABLET PO SCH ×2 (07:31→11:23)
[2019-11-13] MEDS: LORAZEPAM INJ 2 MG/1 ML VIAL IV PRN ×3 (07:54→18:04)
[2019-11-13] MEDS: FLUTICASONE NASAL SPRAY 50 MCG/SPRY 120 SPRAY/16 GM NASL SCH (11:22)
[2019-11-13] MEDS: COLLAGENASE CLOSTRIDIUM HIST. OINT 30 GM TP SCH (11:22)
[2019-11-13] MEDS: FINASTERIDE 5 MG TABLET PO SCH (11:22)
--- NOTE | 2019-11-13 13:53 | PDOC PROGRESS REPORT ---
Subjective Progress Note for:: 11/13/19 Subjective:: Mr. Delacruz is no longer responsive. He appears comfortable. Has lots of family visiting him. Reason For Visit: HYPERKALEMIA, SERVERE DEHYDRATION, ACUTE KIDNEY Physical Exam Vital Signs: Temp Pulse Resp BP Pulse Ox 97.9 F 102 H 14 148/97 H 97 11/13/19 08:39 11/12/19 20:00 11/12/19 20:00 11/12/19 20:00 11/12/19 20:00 Pulse Oximeter Continuous Start: 11/10/19 12:02 Freq: RTQ4 Status: Complete Protocol: Document 11/11/19 14:04 [facility] (Rec: 11/11/19 14:05 [facility] [id number]) Pulse Oximetry Assessment Equipment Usage Equipment Discontinued Continuous SpO2 Machine # 5 Intake & Output 11/12/19 11/13/19 11/14/19 06:59 06:59 06:59 Intake Total 0 0 Output Total 1030 1000 Balance -1030 -1000 Weight 43.3 kg 43.3 kg General appearance: PRESENT: no acute distress Mouth exam: PRESENT: dry mucosa Neck exam: ABSENT: JVD Respiratory exam: ABSENT: accessory muscle use, tachypnea GI/Abdominal exam: PRESENT: soft Gentrourinary exam: PRESENT: indwelling catheter Extremities exam: ABSENT: pedal edema Focused psych exam: ABSENT: restlessness Results Laboratory Results: 11/11/19 07:13 11/11/19 07:13 11/09/19 22:20 Decubitis Ulcer - Back Gram Stain - Final 11/09/19 22:20 Decubitis Ulcer - Back Wound Culture - Final Staphylococcus Aureus Skin Sudha 11/10/19 11/10/19 11/10/19 00:36 16:30 16:30 Creatine Kinase Cancelled Troponin I 0.081 Cancelled 11/10/19 11/10/19 11/10/19 18:14 18:14 19:35 Creatine Kinase Cancelled 39 L Troponin I 0.080 Impressions: Chest X-Ray 11/09/19 22:31 IMPRESSION: No evidence of active intrathoracic disease. Chronic change, no adverse change Head CT 11/09/19 22:31 IMPRESSION: No acute intracranial process is identified. The cause of the patient's mental status change is not identified on this examination. Assessment and Plan - Diagnosis (1) Acute kidney injury (SHAKEEL) with acute tubular necrosis (ATN) Is this a current diagnosis for this admission?: Yes (2) Dehydration Is this a current diagnosis for this admission?: Yes (3) Digoxin toxicity Qualifiers: Encounter type: initial encounter Is this a current diagnosis for this admission?: Yes (4) Hyperkalemia Is this a current diagnosis for this admission?: Yes (5) Hyponatremia Is this a current diagnosis for this admission?: Yes (6) Lactic acidosis Is this a current diagnosis for this admission?: Yes (7) Polycythemia due to fall in plasma volume Is this a current diagnosis for this admission?: Yes (8) Chronic atrial fibrillation Is this a current diagnosis for this admission?: Yes (9) Chronic iron deficiency anemia Is this a current diagnosis for this admission?: Yes (10) Decubitus ulcer Is this a current diagnosis for this admission?: Yes (11) Dysphagia Qualifiers: Dysphagia type: unspecified Qualified Code(s): R13.10 - Dysphagia, unspecified Is this a current diagnosis for this admission?: Yes (12) Hypotension Qualifiers: Hypotension type: unspecified hypotension type Qualified Code(s): I95.9 - Hypotension, unspecified Is this a current diagnosis for this admission?: Yes (13) Protein-energy malnutrition Qualifiers: Protein-calorie malnutrition severity: severe Qualified Code(s): E43 - Unspecified severe protein-calorie malnutrition Is this a current diagnosis for this admission?: Yes (14) Stage II decubitus ulcer of the mid back Is this a current diagnosis for this admission?: Yes - Plan Summary Summary: Mr. Delacruz is a 74 year old gentleman who was recently discharged to [facility] on 10/22/2019 and returned on 11/10/2019 with AMS, FTT, dehydration and multiple severe metabolic derangements. Laboratory studies revealed a potassium of 7.8, sodium of 128, BUN of 109 and a serum creatinine of 2.01. He was found to be cachectic with multiple decubitus ulcers of the spine/sacrum. He was admitted to the hospitalist service for telemetry and IVF rehydration. Diamond catheter was placed for strict I/O. His kidney function and electrolyte abnormalities improved with IVF hydration. Unfortunately, he remained somnolent, delirious and agitated. His family decided to pursue comfort measures, which is appropriate given his age, frailty, debility and multiple chronic medical conditions. Over the last 24 hours, he has become much more somnolent and is now exhibiting agonal breathing. I do not believe he can be transferred to a hospice facility at this point. We are utilizing morphine, ativan and haldol as needed to keep him comfortable. Family is at bedside. Code Status: DNR/DNI - comfort care measures only - Time Time Spent with patient: 25-34 minutes Anticipated Discharge Disposition: Hospice Center Anticipated Discharge Timeframe: within 48 hours
[2019-11-14] MEDS: LORAZEPAM INJ 2 MG/1 ML VIAL IV PRN (03:58)
[2019-11-14] MEDS: MORPHINE SULFATE 10 MG/ML INJ IV PRN ×5 (03:58→19:12)
[2019-11-14] MEDS: COLLAGENASE CLOSTRIDIUM HIST. OINT 30 GM TP SCH (09:52)
[2019-11-14] MEDS ORDERED: SCOPOLAMINE HYDROBROMIDE 1.5 MG PATCH.TD72 TD SCH (13:00)
--- NOTE | 2019-11-14 13:37 | PDOC PROGRESS REPORT ---
Subjective Progress Note for:: 11/14/19 Subjective:: Patient is a 74 year old male with a past medical history significant for A. fib, HTN, aspiration pneumonia, GERD, arthritis, and depression, who was recently discharged to SNF for short term rehabilitation (10/22/19) and returns on 11/10/19 with severe dehydration and acute renal failure with associated digoxin toxicity and electrolyte derangements. Family has decided to transition patient to Hospice/Comfort Care Measures. Patient was seen on afternoon rounds with his son present. He is resting in bed, comfortably, on room air. He does not respond to me, but does turn his head toward his son when his son touches him and says his name. ROS is therefore limited. Patient does appear to be comfortable and is not noted to be in any distress at this time; has just received morphine. Discussed plan of care with patient's son; all questions answered. No concerns per nursing. Reason For Visit: HYPERKALEMIA, SERVERE DEHYDRATION, ACUTE KIDNEY Physical Exam Vital Signs: Temp Pulse Resp BP Pulse Ox 98.6 F 92 15 137/93 H 97 11/14/19 08:30 11/14/19 07:55 11/14/19 07:55 11/14/19 07:55 11/13/19 15:47 Pulse Oximeter Continuous Start: 11/10/19 12:02 Freq: RTQ4 Status: Complete Protocol: Document 11/11/19 14:04 [facility] (Rec: 11/11/19 14:05 [facility] [email or web address]) Pulse Oximetry Assessment Equipment Usage Equipment Discontinued Continuous SpO2 Machine # 5 Intake & Output 11/13/19 11/14/19 11/15/19 06:59 06:59 06:59 Intake Total 0 Output Total 1000 600 Balance -1000 -600 Weight 43.3 kg 43.3 kg General appearance: PRESENT: no acute distress, other - cachectic Head exam: PRESENT: atraumatic, normocephalic Mouth exam: PRESENT: dry mucosa Respiratory exam: PRESENT: clear to auscultation maddy, decreased breath sounds - throughout, other - room air. ABSENT: rales, rhonchi, wheezes Cardiovascular exam: PRESENT: RRR, +S1, +S2 GI/Abdominal exam: PRESENT: hypoactive bowel sounds, soft Extremities exam: PRESENT: pedal edema Neurological exam: PRESENT: other - minimal response; did turn head slightly toward son while he was talking. Otherise, somnulent. Results Laboratory Results: 11/11/19 07:13 11/11/19 07:13 11/10/19 11/10/19 11/10/19 00:36 16:30 16:30 Creatine Kinase Cancelled Troponin I 0.081 Cancelled 11/10/19 11/10/19 11/10/19 18:14 18:14 19:35 Creatine Kinase Cancelled 39 L Troponin I 0.080 Impressions: Chest X-Ray 11/09/19 22:31 IMPRESSION: No evidence of active intrathoracic disease. Chronic change, no adverse change Head CT 11/09/19 22:31 IMPRESSION: No acute intracranial process is identified. The cause of the patient's mental status change is not identified on this examination. Assessment and Plan - Diagnosis (1) Comfort measures only status Is this a current diagnosis for this admission?: Yes Plan: Family has expressed desire to transition to comfort care only. He is provided IV Haldol, IV Ativan, and IV Morphine, as needed for symptoms management. Scopolamine patch for management of oral secretions. Patient appears to have stabilized as compared to yesterday; may be possible to arrange for inpatient-Hospice transfer. Discharge planning is consulted. Patient Advocate/Navigator is consulted. (2) Acute kidney injury (SHAKEEL) with acute tubular necrosis (ATN) Is this a current diagnosis for this admission?: Yes (3) Dehydration Is this a current diagnosis for this admission?: Yes (4) Digoxin toxicity Qualifiers: Encounter type: initial encounter Is this a current diagnosis for this admission?: Yes (5) Hyperkalemia Is this a current diagnosis for this admission?: Yes (6) Hyponatremia Is this a current diagnosis for this admission?: Yes (7) Lactic acidosis Is this a current diagnosis for this admission?: Yes (8) Polycythemia due to fall in plasma volume Is this a current diagnosis for this admission?: Yes (9) Chronic atrial fibrillation Is this a current diagnosis for this admission?: Yes (10) Chronic iron deficiency anemia Is this a current diagnosis for this admission?: Yes (11) Decubitus ulcer Is this a current diagnosis for this admission?: Yes (12) Dysphagia Qualifiers: Dysphagia type: unspecified Qualified Code(s): R13.10 - Dysphagia, unspecified Is this a current diagnosis for this admission?: Yes (13) Hypotension Qualifiers: Hypotension type: unspecified hypotension type Qualified Code(s): I95.9 - Hypotension, unspecified Is this a current diagnosis for this admission?: Yes (14) Protein-energy malnutrition Qualifiers: Protein-calorie malnutrition severity: severe Qualified Code(s): E43 - Unspecified severe protein-calorie malnutrition Is this a current diagnosis for this admission?: Yes (15) Stage II decubitus ulcer of the mid back Is this a current diagnosis for this admission?: Yes - Plan Summary Summary: Mr. Delacruz is a 74 year old gentleman who was recently discharged to [facility] on 10/22/2019 and returned on 11/10/2019 with AMS, FTT, dehydration and multiple severe metabolic derangements. Laboratory studies revealed a potassium of 7.8, sodium of 128, BUN of 109 and a serum creatinine of 2.01. He was found to be cachectic with multiple decubitus ulcers of the spine/sacrum. He was admitted to the hospitalist service for telemetry and IVF rehydration. Diamond catheter was placed for strict I/O. His kidney function and electrolyte abnormalities improved with IVF hydration. Unfortunately, he remained somnolent, delirious and agitated. His family decided to pursue comfort measures, which is appropriate given his age, frailty, debility and multiple chronic medical conditions. Code Status: DNR/DNI - comfort care measures only - Time Time Spent with patient: 35 or more minutes Medications reviewed and adjusted accordingly: Yes Anticipated Discharge Disposition: Hospice Center - vs Anticipated Discharge Timeframe: when bed available
[2019-11-15] MEDS: MORPHINE SULFATE 10 MG/ML INJ IV PRN ×5 (01:43→21:32)
[2019-11-15 08:17] VITALS: BP 90/67
[2019-11-15] MEDS: COLLAGENASE CLOSTRIDIUM HIST. OINT 30 GM TP SCH (09:01)
--- NOTE | 2019-11-15 13:54 | PDOC PROGRESS REPORT ---
Subjective Progress Note for:: 11/15/19 Subjective:: Patient is a 74 year old male with a past medical history significant for A. fib, HTN, aspiration pneumonia, GERD, arthritis, and depression, who was recently discharged to SNF for short term rehabilitation (10/22/19) and returns on 11/10/19 with severe dehydration and acute renal failure with associated digoxin toxicity and electrolyte derangements. Family has decided to transition patient to Hospice/Comfort Care Measures. Patient was seen on morning rounds; no family present. He is resting in bed, comfortably, on room air. He does not respond to me. Per nursing, occasionally will open eyes when someone speaks to him. ROS is therefore limited. Patient does appear to be comfortable and is not noted to be in any distress at this time; has just received morphine. No concerns per nursing. Reason For Visit: HYPERKALEMIA, SERVERE DEHYDRATION, ACUTE KIDNEY Physical Exam Vital Signs: Temp Pulse Resp BP Pulse Ox 98.3 F 119 H 15 90/67 L 95 11/15/19 07:39 11/15/19 07:26 11/15/19 07:26 11/15/19 07:26 11/15/19 07:26 Pulse Oximeter Continuous Start: 11/10/19 12:02 Freq: RTQ4 Status: Complete Protocol: Document 11/11/19 14:04 [facility] (Rec: 11/11/19 14:05 [facility] [id number]) Pulse Oximetry Assessment Equipment Usage Equipment Discontinued Continuous SpO2 Machine # 5 Intake & Output 11/14/19 11/15/19 11/16/19 06:59 06:59 06:59 Output Total 600 100 Balance -600 -100 Weight 43.3 kg General appearance: PRESENT: no acute distress, other - cachectic Head exam: PRESENT: atraumatic, normocephalic Mouth exam: PRESENT: dry mucosa Respiratory exam: PRESENT: clear to auscultation maddy, decreased breath sounds - throughout; shallow - minimal air movement, symmetrical. ABSENT: rales, rhonchi, wheezes Cardiovascular exam: PRESENT: RRR Neurological exam: PRESENT: other - obtunded Results Laboratory Results: 11/11/19 07:13 11/11/19 07:13 11/10/19 00:36 Blood Blood Culture - Final NO GROWTH IN 5 DAYS 11/09/19 22:54 Blood Blood Culture - Final NO GROWTH IN 5 DAYS 11/10/19 11/10/19 11/10/19 00:36 16:30 16:30 Creatine Kinase Cancelled Troponin I 0.081 Cancelled 11/10/19 11/10/19 11/10/19 18:14 18:14 19:35 Creatine Kinase Cancelled 39 L Troponin I 0.080 Impressions: Chest X-Ray 11/09/19 22:31 IMPRESSION: No evidence of active intrathoracic disease. Chronic change, no adverse change Head CT 11/09/19 22:31 IMPRESSION: No acute intracranial process is identified. The cause of the patient's mental status change is not identified on this examination. Assessment and Plan - Diagnosis (1) Comfort measures only status Is this a current diagnosis for this admission?: Yes Plan: Family has expressed desire to transition to comfort care only. He is provided IV Haldol, IV Ativan, and IV Morphine, as needed for symptoms ma nagement. Scopolamine patch for management of oral secretions. May be possible to arrange for inpatient-Hospice transfer. Discharge planning is consulted. Patient Advocate/Navigator is consulted. (2) Acute kidney injury (SHAKEEL) with acute tubular necrosis (ATN) Is this a current diagnosis for this admission?: Yes (3) Dehydration Is this a current diagnosis for this admission?: Yes (4) Digoxin toxicity Qualifiers: Encounter type: initial encounter Is this a current diagnosis for this admission?: Yes (5) Hyperkalemia Is this a current diagnosis for this admission?: Yes (6) Hyponatremia Is this a current diagnosis for this admission?: Yes (7) Lactic acidosis Is this a current diagnosis for this admission?: Yes (8) Polycythemia due to fall in plasma volume Is this a current diagnosis for this admission?: Yes (9) Chronic atrial fibrillation Is this a current diagnosis for this admission?: Yes (10) Chronic iron deficiency anemia Is this a current diagnosis for this admission?: Yes (11) Decubitus ulcer Is this a current diagnosis for this admission?: Yes (12) Dysphagia Qualifiers: Dysphagia type: unspecified Qualified Code(s): R13.10 - Dysphagia, unspecified Is this a current diagnosis for this admission?: Yes (13) Hypotension Qualifiers: Hypotension type: unspecified hypotension type Qualified Code(s): I95.9 - Hypotension, unspecified Is this a current diagnosis for this admission?: Yes (14) Protein-energy malnutrition Qualifiers: Protein-calorie malnutrition severity: severe Qualified Code(s): E43 - Unspecified severe protein-calorie malnutrition Is this a current diagnosis for this admission?: Yes (15) Stage II decubitus ulcer of the mid back Is this a current diagnosis for this admission?: Yes - Plan Summary Summary: Mr. Delacruz is a 74 year old gentleman who was recently discharged to [facility] on 10/22/2019 and returned on 11/10/2019 with AMS, FTT, dehydration and multiple severe metabolic derangements. Laboratory studies revealed a potassium of 7.8, sodium of 128, BUN of 109 and a serum creatinine of 2.01. He was found to be cachectic with multiple decubitus ulcers of the spine/sacrum. He was admitted to the hospitalist service for telemetry and IVF rehydration. Diamond catheter was placed for strict I/O. His kidney function and electrolyte abnormalities improved with IVF hydration. Unfortunately, he remained somnolent, delirious and agitated. His family decided to pursue comfort measures, which is appropriate given his age, frailty, debility and multiple chronic medical conditions. Code Status: DNR/DNI - comfort care measures only - Time Time Spent with patient: 15-24 minutes Medications reviewed and adjusted accordingly: Yes Anticipated Discharge Disposition: Hospice Center Anticipated Discharge Timeframe: when bed available
[2019-11-16] MEDS: MORPHINE SULFATE 10 MG/ML INJ IV PRN ×7 (06:18→21:12)
[2019-11-16] MEDS: COLLAGENASE CLOSTRIDIUM HIST. OINT 30 GM TP SCH (09:22)
--- NOTE | 2019-11-16 16:35 | PDOC PROGRESS REPORT ---
Subjective Progress Note for:: 11/16/19 Subjective:: Patient is a 74 year old male with a past medical history significant for A. fib, HTN, aspiration pneumonia, GERD, arthritis, and depression, who was recently discharged to SNF for short term rehabilitation (10/22/19) and returns on 11/10/19 with severe dehydration and acute renal failure with associated digoxin toxicity and electrolyte derangements. Family has decided to transition patient to Hospice/Comfort Care Measures. Patient was seen on morning rounds with present. He is resting in bed, comfortably, on room air. He does not respond to me. ROS is therefore limited. Patient does appear to be comfortable and is not noted to be in any distress at this time; has just received morphine. Son asks about ensuring patient's comfort; somewhat distraught by feeling that his father has 'suffered too long.' Son is provided assurance that we are watching his father closely and will intervene at any sign of discomfort. He is agreeable to offer to increase morphine dose slightly to ensure that his father does not experience symptoms of pain, air hunger, or anxiety. No concerns per nursing. Reason For Visit: HYPERKALEMIA, SERVERE DEHYDRATION, ACUTE KIDNEY Physical Exam Vital Signs: Temp Pulse Resp BP Pulse Ox 98.3 F 119 H 15 90/67 L 95 11/16/19 08:43 11/15/19 07:26 11/15/19 07:26 11/15/19 07:26 11/15/19 07:26 Pulse Oximeter Continuous Start: 11/10/19 12:02 Freq: RTQ4 Status: Complete Protocol: Document 11/11/19 14:04 [facility] (Rec: 11/11/19 14:05 [facility] [id number]) Pulse Oximetry Assessment Equipment Usage Equipment Discontinued Continuous SpO2 Machine # 5 Intake & Output 11/15/19 11/16/19 11/17/19 06:59 06:59 06:59 Intake Total 0 Output Total 100 0 Balance -100 0 0 Weight 46.4 kg General appearance: PRESENT: other - cachectic Head exam: PRESENT: atraumatic, normocephalic Eye exam: PRESENT: conjunctiva pale Mouth exam: PRESENT: dry mucosa Respiratory exam: PRESENT: decreased breath sounds - throughout, tachypnea - shallow; minimal air movement Cardiovascular exam: PRESENT: irregular rhythm, tachycardia Neurological exam: PRESENT: other - obtunded Results Laboratory Results: 11/11/19 07:13 11/11/19 07:13 11/10/19 11/10/19 11/10/19 00:36 16:30 16:30 Creatine Kinase Cancelled Troponin I 0.081 Cancelled 11/10/19 11/10/19 11/10/19 18:14 18:14 19:35 Creatine Kinase Cancelled 39 L Troponin I 0.080 Impressions: Chest X-Ray 11/09/19 22:31 IMPRESSION: No evidence of active intrathoracic disease. Chronic change, no adverse change Head CT 11/09/19 22:31 IMPRESSION: No acute intracranial process is identified. The cause of the patient's mental status change is not identified on this examination. Assessment and Plan - Diagnosis (1) Comfort measures only status Is this a current diagnosis for this admission?: Yes Plan: Family has expressed desire to transition to comfort care only. He is provided IV Haldol, IV Ativan, and IV Morphine, as needed for symptoms management. Scopolamine patch for management of oral secretions. Discussed with nursing use of morphine at end of life. We discussed that use of morphine can ease pain and air hunger. Reviewed that morphine use will not be the direct cause of the patient's demise; only ease patient and family discomfort. Discussed that alleviating family suffering is also a primary goal of hospice/comfort care services. Encouraged nursing staff to call me for any concerns/reservations w/ regard to medication administration schedule. All agreeable w/ increased dose and close attention to timing interval. Consider RELIGION DEPARTMENT CHAIR. (2) Acute kidney injury (SHAKEEL) with acute tubular necrosis (ATN) Is this a current diagnosis for this admission?: Yes (3) Dehydration Is this a current diagnosis for this admission?: Yes (4) Digoxin toxicity Qualifiers: Encounter type: initial encounter Is this a current diagnosis for this admission?: Yes (5) Hyperkalemia Is this a current diagnosis for this admission?: Yes (6) Hyponatremia Is this a current diagnosis for this admission?: Yes (7) Lactic acidosis Is this a current diagnosis for this admission?: Yes (8) Polycythemia due to fall in plasma volume Is this a current diagnosis for this admission?: Yes (9) Chronic atrial fibrillation Is this a current diagnosis for this admission?: Yes (10) Chronic iron deficiency anemia Is this a current diagnosis for this admission?: Yes (11) Decubitus ulcer Is this a current diagnosis for this admission?: Yes (12) Dysphagia Qualifiers: Dysphagia type: unspecified Qualified Code(s): R13.10 - Dysphagia, unspecified Is this a current diagnosis for this admission?: Yes (13) Hypotension Qualifiers: Hypotension type: unspecified hypotension type Qualified Code(s): I95.9 - Hypotension, unspecified Is this a current diagnosis for this admission?: Yes (14) Protein-energy malnutrition Qualifiers: Protein-calorie malnutrition severity: severe Qualified Code(s): E43 - Unspecified severe protein-calorie malnutrition Is this a current diagnosis for this admission?: Yes (15) Stage II decubitus ulcer of the mid back Is this a current diagnosis for this admission?: Yes - Plan Summary Summary: Mr. Delacruz is a 74 year old gentleman who was recently discharged to [facility] on 10/22/2019 and returned on 11/10/2019 with AMS, FTT, dehydration and multiple severe metabolic derangements. Laboratory studies revealed a potassium of 7.8, sodium of 128, BUN of 109 and a serum creatinine of 2.01. He was found to be cachectic with multiple decubitus ulcers of the spine/sacrum. He was admitted to the hospitalist service for telemetry and IVF rehydration. Diamond catheter was placed for strict I/O. His kidney function and electrolyte abnormalities improved with IVF hydration. Unfortunately, he remained somnolent, delirious and agitated. His family decided to pursue comfort measures, which is appropriate given his age, frailty, debility and multiple chronic medical condi tions. Code Status: DNR/DNI - comfort care measures only - Time Time Spent with patient: 35 or more minutes Medications reviewed and adjusted accordingly: Yes Anticipated Discharge Disposition: Anticipated Discharge Timeframe: within 72 hours
--- NOTE | 2019-11-17 21:18 | Death Summary ---
Summary Date : 11/16/19 Time of :: 22:48 Autopsy: No Resuscitation Status: Comfort Measures Only - Final Diagnosis (1) Acute kidney injury (SHAKEEL) with acute tubular necrosis (ATN) Is this a current diagnosis for this admission?: Yes (2) Hyperkalemia Is this a current diagnosis for this admission?: Yes (3) Dehydration Is this a current diagnosis for this admission?: Yes (4) Digoxin toxicity Is this a current diagnosis for this admission?: Yes (5) Hyponatremia Is this a current diagnosis for this admission?: Yes (6) Lactic acidosis Is this a current diagnosis for this admission?: Yes (7) Chronic atrial fibrillation Is this a current diagnosis for this admission?: Yes (8) Stage II decubitus ulcer of the mid back Is this a current diagnosis for this admission?: Yes (9) Polycythemia due to fall in plasma volume Is this a current diagnosis for this admission?: Yes Hospital Course:: I admitted Mr. Delacruz on November 09. He had presented [facility] the [facility] with severe dehydration and metabolic derangement. With a ggressive IV fluids his serum potassium normalized. His creatinine also normalized but his BUN remained elevated. His initially elevated lactic acid level also normalized. Despite improvements in his laboratory studies the patient failed to improve. He remained confused and became agitated. Based on multiple factors the family agreed to comfort measures only. Comfort measures were initiated on November 10 or . Medications were streamlined to address comfort and agitation. Over the next several days he began to decline. Initially it was felt that inpatient hospice would be appropriate. Unfortunately his rate of decline increased and he became unresponsive. His breathing was eventually agonal. He eventually on November 16, 2019 at22:48.
== END 2019-11-16 22:48 | DRG 682 ==
LOC: ER 21:10 → EH 11-10 06:08 → 3S 11-10 09:38 → 4N 11-12 22:14
PROVIDERS: ADMIT Hospitalist; ATTEND Registered Nurse
DX: N17.0 Acute kidney failure with tubular necrosis (principal); G93.41 Metabolic encephalopathy; E43 Unspecified severe protein-calorie malnutrition; E87.1 Hypo-osmolality and hyponatremia; I48.20 Chronic atrial fibrillation, unspecified; E87.2 Acidosis; Z68.1 Body mass index [BMI] 19.9 or less, adult; R64 Cachexia; Z51.5 Encounter for palliative care; E86.0 Dehydration; E87.5 Hyperkalemia; T46.0X5A Adverse effect of cardiac-stimulant glycosides and drugs of similar action, initial encounter; D50.9 Iron deficiency anemia, unspecified; I10 Essential (primary) hypertension; K21.9 Gastro-esophageal reflux disease without esophagitis; M19.90 Unspecified osteoarthritis, unspecified site; L89.102 Pressure ulcer of unspecified part of back, stage 2; F32.9 Major depressive disorder, single episode, unspecified; D75.1 Secondary polycythemia; L89.152 Pressure ulcer of sacral region, stage 2; I95.9 Hypotension, unspecified; Z66 Do not resuscitate; R62.7 Adult failure to thrive; R13.10 Dysphagia, unspecified; Z79.899 Other long term (current) drug therapy; Z88.6 Allergy status to analgesic agent; Z88.8 Allergy status to other drugs, medicaments and biological substances; Z82.49 Family history of ischemic heart disease and other diseases of the circulatory system
CPT/HCPCS: 36415; 70450; 71045; 80053; 80069; 80162; 81001; 82550; 82803; 82962; 83605; 83735; 84100; 84484; 85025; 86850; 86900; 86901; 87040; 87070; 87077; 87086; 87186; 87205; 93005; 93010; 94762; 99285; J0610; J1644; J1815; J2060; J2270; J3490; J7030